=== PATIENT | female | born 1925 | race Caucasian/White ===

== ENCOUNTER → 2016-09-04 | Outpatient (REF) | payer MEDICARE, MEDICAID ==
[~2016-09-04] MED LIST: AMLO10TA2 PO; ARTI99.0 OU; BONI150T PO; CALC600T62 PO; LACT10SO29 PO; LATA5OPD OU; LOSA100T36 PO; METO5EL PO; NAPR500T PO; OXYB5TA PO; PATA0.2S OU; PRESCAP PO; RANI15ELUD PO; RISP0.5T16 PO; SUCR1SS PO; VITA400C2 PO
[2016-09-04 12:23] LABS: MEAN CORPUSCULAR HEMOGLOBIN 25.5 pg (27.0-33.0); MEAN CORPUSCULAR HGB CONC 31.9 g/dl (32.0-36.5); MEAN CORPUSCULAR VOLUME 80.1 fl (80.0-96.0); RED CELL DISTRIBUTION WIDTH 14.4 % (11.5-14.5); WHITE BLOOD COUNT 6.3 K/mm3 (4.0-10.0)
== END ==
LOC: M LABDRAW1 11:46
PROVIDERS: ATTEND Physician Assistant
DX: K57.91 Diverticulosis of intestine, part unspecified, without perforation or abscess with bleeding (principal)

== ENCOUNTER 2016-10-10 06:28 | Inpatient (IN) | payer MEDICARE, MEDICAID ==
[~2016-10-10] VITALS: Ht 154.9 cm; Wt 61.8 kg
[2016-10-10] MEDS ORDERED: ALBUTEROL SULFATE 2.5 MG/0.5 ML INH NEB SOLN As Ordered ONE (06:50)
[2016-10-10 07:07] LABS: ABG BASE EXCESS 1.7 (-2.0-2.0); ABG DEVICE NASAL CANN; ABG HCO3 25.8 MEQ/L (22.0-26.0); ABG PARTIAL PRESSURE CO2 38.6 mmHg (35.0-45.0); ABG PARTIAL PRESSURE O2 87.7 mmHg (75.0-100.0); ABG pH (ARTERIAL) 7.443 UNITS (7.350-7.450)
[2016-10-10 07:27] LABS: BASO % 0.6 % (0.0-1.0); EOS % 0.3 % (0.0-3.0); LARGE UNSTAINED CELL # 0.4 K/mm3 (0.0-0.4); LARGE UNSTAINED CELL % 5.1 % (0.0-4.0); LYMPH # 0.7 K/mm3 (1.5-4.5); LYMPH % 9.2 % (24.0-44.0); MEAN CORPUSCULAR HEMOGLOBIN 22.7 pg (27.0-33.0); MEAN CORPUSCULAR HGB CONC 32.1 g/dl (32.0-36.5); MEAN CORPUSCULAR VOLUME 70.7 fl (80.0-96.0); MONO # 0.8 K/mm3 (0.0-0.8); MONO % 10.4 % (0.0-5.0); NEUTROPHILS # 5.8 K/mm3 (1.8-7.7); NEUTROPHILS % 74.4 % (36.0-66.0); PLATELET COUNT, AUTOMATED 261 k/mm3 (150-450); RED CELL DISTRIBUTION WIDTH 14.6 % (11.5-14.5); WHITE BLOOD COUNT 7.7 K/mm3 (4.0-10.0)
[2016-10-10] MEDS ORDERED: ACETAMINOPHEN 325 MG TAB As Ordered ONE (07:46)
[2016-10-10 07:59] LABS: ANION GAP 11 MEQ/L (8-16); BLOOD UREA NITROGEN 11 MG/DL (7-18); CALCIUM LEVEL 8.6 MG/DL (8.8-10.2); CARBON DIOXIDE LEVEL 27 MEQ/L (21-32); CHLORIDE LEVEL 101 MEQ/L (98-107); CREATININE FOR GFR 0.85 MG/DL (0.55-1.02); GLOMERULAR FILTRATION RATE > 60.0 (>32); GLUCOSE, FASTING 141 MG/DL (83-110); POTASSIUM SERUM 3.9 MEQ/L (3.5-5.1); SODIUM LEVEL 139 MEQ/L (136-145)
--- NOTE | 2016-10-10 08:41 | REP ---
Chest x-ray: Two views. History: Cough. Comparison chest x-ray August 20, 2016. Findings: EKG monitoring electrodes overlie the chest. Cardiomegaly is observed unchanged. The lungs are exposed at a low level of inspiration similar to the prior study. There is some plate-like atelectasis visible in both lung bases. No definite infiltrate. Impression: Bibasilar subsegmental plate-like atelectasis. No definite infiltrate. Cardiomegaly. Relatively low level of inspiration. Signed by Alfonso Mello MD 10/10/2016 02:59 P
[2016-10-10] MEDS ORDERED: LORA10TA2 PO (08:53)
[2016-10-10] MEDS ORDERED: CALC1TAB64 PO (08:53)
[2016-10-10] MEDS ORDERED: VITA5ELUD PO (08:53)
[2016-10-10] MEDS: amLODIPine 10 MG TAB PO SCH (09:00)
[2016-10-10] MEDS: LOSARTAN 50 MG TAB PO SCH (09:00)
[2016-10-10 11:00] VITALS: BP 132/73
[2016-10-10] MEDS ORDERED: PANTOPRAZOLE 40MG INJ (PROTONIX) (C9113) As Ordered ONE (11:58)
[2016-10-10] MEDS ORDERED: ENOXAPARIN 40 MG/0.4 ML SYRINGE (J1650) As Ordered ONE (11:59)
[2016-10-10] MEDS: PANTOPRAZOLE 40MG INJ (PROTONIX) (C9113) IV SCH (12:00)
[2016-10-10] MEDS: ENOXAPARIN 30 MG/0.3 ML SYR (J1650) SC SCH (12:01)
[2016-10-10] MEDS ORDERED: ENOXAPARIN 30 MG/0.3 ML SYR (J1650) As Ordered ONE (12:01)
[2016-10-10] MEDS: SENOKOT S TAB PO SCH ×2 (12:01→20:47)
[2016-10-10] MEDS: LORATADINE 10 MG TAB PO SCH (12:02)
[2016-10-10] MEDS: risperiDONE 0.5 MG TAB PO SCH ×2 (12:02→20:47)
[2016-10-10] MEDS: oxyBUTYnin 5 MG TAB PO SCH ×2 (12:02→20:47)
[2016-10-10 14:15] VITALS: BP 129/61
--- NOTE | 2016-10-10 14:18 | EDDOCDS ---
Nurse's Notes [facility] Name: Anne Newman Age: 89 yrs Sex: Female : 1925 Arrival Date: 10/10/2016 Time: 06:28 Bed Admit Hold Private MD: Rochelle Cole PA-C Diagnosis: Fever, unspecified-Hypoxia Presentation: 10/10 06:30 Presenting complaint: EMS states: Patient from [facility]. Woke up this morning with weakness kas2 and not wanting to stand for staff. Temp was 102.6 for staff. Coughing and sneezing. SpO2 88% RA for EMS. Denies chest pain. Adult Sepsis Screening: The patient does not have new or worsening altered mentation. Patient's respiratory rate is less than 22. Systolic blood pressure is greater than 100. Patient has a qSOFA score of 0- Negative Sepsis Screen. Suicide/Homicide risk assessment- the patient denies having any suicidal and/or homicidal ideations and does not present with any other emotional, behavioral or mental health complaints. Status: Patient is not a shop service technician or dependent. Transition of care: patient was not received from another setting of care. 06:30 Acuity: ABDIAZIZ Level 3 kas2 06:30 Method Of Arrival: Ambulance [facility] Triage Assessment: 06:36 General: Appears in no apparent distress, comfortable, well nourished, well groomed, kas2 Behavior is appropriate for age, cooperative. Pain: Location: abdomen and throat Unable to use pain scale. Does not appear to understand pain scale. Neurological: Level of Consciousness is awake, alert, confused, Oriented to person. Cardiovascular: Capillary refill < 3 seconds Heart tones S1 S2 present Rhythm is sinus rhythm No ectopy. Respiratory: Airway is patent Respiratory effort is even, unlabored, Respiratory pattern is regular, symmetrical, Breath sounds are diminished bilaterally. Derm: Skin is intact, Skin is dry, Skin is pink, warm & dry. Skin temperature is warm. Musculoskeletal: No deficits noted. Injury Description: No known injury. Historical: - Allergies: Ibuprofenavoids; Lisinopriladverse reaction; - Home Meds: 1. vitamin E 400 unit Oral cap daily 2. Risperdal 0.5 mg Oral tab 2 times per day 3. oxybutynin chloride 5 mg Oral tab 1 tab 2 times per day 4. Boniva 150 mg oral tab 1 tab once moly 5. ranitidine HCl 15 mg/mL Oral syrp 2 times per day 6. Carafate 100 mg/mL Oral susp 10 mL three times a day 7. losartan 100 mg oral tab 1 tab once daily 8. latanoprost 0.005 % ophthalmic drop 1 drop nightly 9. PreserVision AREDS oral twice a day 10. amlodipine 10 mg Oral tab 1 tab once daily 11. metoclopramide HCl 5 mg/5 mL Oral soln 4 times per day 12. Artificial Tears Opht four times a day 13. lactulose 10 gram/15 mL Oral soln once daily 14. Calcarb 600 With Vitamin D Oral twice a day - PMHx: Hypertension; Diverticulitis; Mental Retardation; - The history from nurses notes was reviewed: and I agree with what is documented. - Social history: Smoking status: Patient states was never smoker of tobacco. Patient is speech impaired. - : The pt / caregiver states he / she is not on anticoagulants. Home medication list is obtained from the facility OCT. - Hospitalizations: : The patient was recently seen at [facility], and discharged 2 month(s) ago, for unrelated complaints. - Exposure Risk Screening:: None identified. - Immunization history:: All immunizations up-to-date. - Family history: Not pertinent. - Social history:: the patient is a non-smoker, the patient does not drink alcohol. Screenin:42 Screening information is obtained from residence staff. Fall risk: At risk due to age, kas2 apparent cognitive impairment. Assistance ADL's: Requires assistance with meal preparation, this assistance is provided by bathing, assistance is provided by residence staff, dressing, assistance is provided by residence staff, toileting, assistance is provided by residence staff, ambulation, assistance is provided by residence staff, housework, assistance is provided by residence staff, medication administration, assistance is provided by residence staff. Abuse/DV Screen: The patient / caregiver reports he/she is: not in a situation that causes fear, pain or injury. Nutritional screening: No deficits noted. Advance Directives: Currently, there is a health care proxy, Ana Dickens. There is a living will, and a copy is available at this time. home support is adequate. Assessment: 06:41 General: See triage note. [facility] 07:22 General: Appears JRC client. Non verbal, but uses gestures. Dry oral mucosa. without jmk resp distress. coarse breath sounds to left base. Monitor is sr/st. without resp distress. sl intact to right upper ext.. Cardiovascular: Capillary refill < 3 seconds Clubbing of nail beds is absent Heart tones S1 S2 present. Respiratory: No deficits noted. Airway is patent Respiratory effort is even, unlabored, Respiratory pattern is regular, Breath sounds are coarse in left posterior lower lobe. GI: Abdomen is non- distended obese. 08:27 General: Appears without resp distress . quietly awaiting dispo. jmk 09:30 General: Appears without complaints. JRC at staff and reports she is at baseline. k Monitor is sr. Maintaining sat above 94 % with 3 l nc. No observed resp distress SL intact. awaiting admission. 10:30 General: Patient now ED [place] and brought to room 20. All charting will continue in [address] Vital Signs: 06:38 BP 133 / 63; Pulse 92; Resp 20; Temp 100.8(TE); Pulse Ox 86% on R/A; mlc 06:38 Pulse Ox 91% on 2 lpm NC; mlc 06:43 Weight 77.79 kg; Height 5 ft. 1 in. (154.94 cm); Pain 0/10; kas2 07:58 BP 124 / 78; Pulse 88; Resp 20; Pulse Ox 95% 4 lpm ; jmk 08:49 Pulse 81; Resp 20; Temp 100.3; jmk 06:43 Body Mass Index 32.40 (77.79 kg, 154.94 cm) [facility] Vitals: 06:38 Log In Time N/A - ambulance arrival. [facility] ED Course: 06:29 Patient visited by Emeka Kline PCA. mdr 06:29 Patient moved to Waiting mdr 06:30 Rochelle Cole is Private Physician. mdr 06:30 Wilma Mcdonough,NATALIA is Primary Nurse. mdr 06:30 Patient moved to 9 mdr 06:33 Triage Initiated [facility] 06:40 Ced Harris MD is Attending Physician. pc 06:40 Patient visited by Ced Harris MD. pc 06:40 O2 via nasal cannula \T\ 2L/min. [facility] 06:43 media monitor on. Pulse ox on. NIBP on. kas2 06:48 -Influenza A&B Rapid Antigen - Nose Sent. [facility] 06:57 Patient visited by Wilma Mcdonough RN. kas2 06:57 Inserted saline lock: 20 gauge in right forearm The patient tolerated the procedure kas2 well. No procedures done that require assistance. 06:59 -Arterial Blood Gas Sent. kt1 07:02 Attending Physician role handed off by Ced Harris MD br1 07:02 Carlos A Grajeda MD is Attending Physician. br1 07:03 Patient visited by Wilma Mcdonough RN. kas2 07:08 Primary Nurse role handed off by Wilma Mcdonough RN mcp 07:22 MED Profile Sent. jmk 07:22 CBC with Diff Sent. jmk 07:42 TROPONIN Sent. jmk 07:57 EKG done. (by ED staff). Reviewed by Carlos A Grajeda MD. rn1 07:58 Patient visited by Drew Wheeler. rn1 07:59 Patient visited by Clarke Fox RN. jmk 08:14 Patient visited by Carlos A Grajeda MD. br1 08:37 [facility] Payment Agreement was scanned into [employer] and attached to record. lg 08:39 Jose Eduardo Amezcua is Hospitalizing Provider. br1 09:03 Chest, 2 View (pa\E\lat) Returned. EDMS 10:07 Patient visited by Clarke Fox RN. jmk 11:03 Patient moved to 20 [facility] 11:14 Patient moved to Admit Hold [facility] 13:53 The patient / caregiver is instructed regarding the plan of care and ED course. aa3 Administered Medications: 06:52 Drug: Albuterol 5 mg [albuterol sulfate 2.5 mg/0.5 mL solution for nebulization (1 mL)] kt1 Route: Nebulizer; 07:58 Drug: Acetaminophen 650 mg [acetaminophen 325 mg tablet (2 tabs)] Route: PO; john RT: 07:00 ABG's drawn from right radial artery pressure held for 5 minutes no bleeding noted kt1 pressure bandage applied specimen sent pt. tolerated well. Initial Med Neb Given as ordered Unable to give instruction due to patient's physical barriers, family/caregiver not present. Order Results: Lab Order: -Influenza A&B Rapid Antigen - Nose; SPEC'M 10/10/16 06:46 Test: INFLUENZA A RAPID SCR by ICA; Value: INFLUENZA A RESULTS NEGATIVE; Status: F Test: INFLUENZA A RAPID SCR by ICA; Value: Comments:; Status: F Test: INFLUENZA B RAPID SCR by ICA; Value: INFLUENZA B RESULTS NEGATIVE; Status: F Test Note: ; The Influenza test is a direct rapid immunoassay for the qualitative detection of Influenza viral antigen. Cell culture (Viral Culture) testing should be considered to confirm NEGATIVE results and to assist in detecting other viruses that can provide similar clinical symptoms. Please contact the lab within 24 hours ([phone]) if confirmatory testing is desired. Lab Order: -Arterial Blood Gas; SPEC'10/10/16 06:46 Test: ABG pH (ARTERIAL); Value: 7.443; Range: 7.350-7.450; Units: UNITS; Status: F Test: ABG PARTIAL PRESSURE CO2; Value: 38.6; Range: 35.0-45.0; Units: mmHg; Status: F Test: ABG PARTIAL PRESSURE O2; Value: 87.7; Range: 75.0-100.0; Units: mmHg; Status: F Test: ABG TOTAL CO2; Value: 27.0; Range: 23.0-31.0; Units: MEQ/L; Status: F Test: ABG HCO3; Value: 25.8; Range: 22.0-26.0; Units: MEQ/L; Status: F Test: ABG BASE EXCESS; Value: 1.7; Range: -2.0-2.0; Status: F Test: ABG STANDARD HCO3; Value: 26.0; Range: 22.0-26.0; Units: MEQ/L; Status: F Test: ABG O2 SATURATION; Value: 96.8; Range: 95.0-99.0; Units: %; Status: F Test: ABG DEVICE; Value: NASAL KHAI; Status: F Lab Order: CBC with Diff; SPEC10/10/16 07:18 Test: WHITE BLOOD COUNT; Value: 7.7; Range: 4.0-10.0; Units: K/mm3; Status: F Test: RED BLOOD COUNT; Value: 4.83; Range: 4.00-5.40; Units: M/mm3; Status: F Test: HEMOGLOBIN; Value: 11.0; Range: 12.0-16.0; Abnormal: Below low normal; Units: g/dl; Status: F Test: HEMATOCRIT; Value: 34.1; Range: 36.0-47.0; Abnormal: Below low normal; Units: %; Status: F Test: MEAN CORPUSCULAR VOLUME; Value: 70.7; Range: 80.0-96.0; Abnormal: Below low normal; Units: fl; Status: F Test: MEAN CORPUSCULAR HEMOGLOBIN; Value: 22.7; Range: 27.0-33.0; Abnormal: Below low normal; Units: pg; Status: F Test: MEAN CORPUSCULAR HGB CONC; Value: 32.1; Range: 32.0-36.5; Units: g/dl; Status: F Test: RED CELL DISTRIBUTION WIDTH; Value: 14.6; Range: 11.5-14.5; Abnormal: Above high normal; Units: %; Status: F Test: PLATELET COUNT, AUTOMATED; Value: 261; Range: 150-450; Units: k/mm3; Status: F Test: NEUTROPHILS %; Value: 74.4; Range: 36.0-66.0; Abnormal: Above high normal; Units: %; Status: F Test: LYMPH %; Value: 9.2; Range: 24.0-44.0; Abnormal: Below low normal; Units: %; Status: F Test: MONO %; Value: 10.4; Range: 0.0-5.0; Abnormal: Above high normal; Units: %; Status: F Test: EOS %; Value: 0.3; Range: 0.0-3.0; Units: %; Status: F Test: BASO %; Value: 0.6; Range: 0.0-1.0; Units: %; Status: F Test: LARGE UNSTAINED CELL %; Value: 5.1; Range: 0.0-4.0; Abnormal: Above high normal; Units: %; Status: F Test: NEUTROPHILS #; Value: 5.8; Range: 1.8-7.7; Units: K/mm3; Status: F Test: LYMPH #; Value: 0.7; Range: 1.5-4.5; Abnormal: Below low normal; Units: K/mm3; Status: F Test: MONO #; Value: 0.8; Range: 0.0-0.8; Units: K/mm3; Status: F Test: EOS #; Value: 0.0; Range: 0.0-0.50; Units: K/mm3; Status: F Test: BASO #; Value: 0.0; Range: 0.0-0.2; Units: K/mm3; Status: F Test: LARGE UNSTAINED CELL #; Value: 0.4; Range: 0.0-0.4; Units: K/mm3; Status: F Lab Order: MED Profile; SPEC10/10/16 07:18 Test: GLUCOSE, FASTING; Value: 141; Range: 83-110; Abnormal: Above high normal; Units: MG/DL; Status: F Test: BLOOD UREA NITROGEN; Value: 11; Range: 7-18; Units: MG/DL; Status: F Test: CREATININE FOR GFR; Value: 0.85; Range: 0.55-1.02; Units: MG/DL; Status: F Test: GLOMERULAR FILTRATION RATE; Value: > 60.0; Range: >32; Status: F Test: SODIUM LEVEL; Value: 139; Range: 136-145; Units: MEQ/L; Status: F Test: POTASSIUM SERUM; Value: 3.9; Range: 3.5-5.1; Units: MEQ/L; Status: F Test: CHLORIDE LEVEL; Value: 101; Range: 98-107; Units: MEQ/L; Status: F Test: CARBON DIOXIDE LEVEL; Value: 27; Range: 21-32; Units: MEQ/L; Status: F Test: ANION GAP; Value: 11; Range: 8-16; Units: MEQ/L; Status: F Test: CALCIUM LEVEL; Value: 8.6; Range: 8.8-10.2; Abnormal: Below low normal; Units: MG/DL; Status: F Test Note: ; Units are mL/min/1.73 m2 Chronic Kidney Disease Staging per NKF: Stage I & II GFR >=60 Normal to Mildly Decreased Stage III GFR 30-59 Moderately Decreased Stage IV GFR 15-29 Severely Decreased Stage V GFR <15 Very Little GFR Left ESRD GFR <15 on DENTAL INSTRUMENT MAKER Lab Order: BNP; [facility] 10/10/16 07:15 Test: BRAIN NATRIURETIC PEPTIDE; Value: 87.7; Range: <100; Units: PG/ML; Status: F Lab Order: TROPONIN; [facility] 10/10/16 07:18 Test: TROPONIN I; Value: < 0.02; Range: < 0.10; Units: NG/ML; Status: F Test Note: ; Troponin I Reference Interval for [employer] [place] LOCI: 99th Percentile= 0.00-0.045 ng/ml Risk Stratification: <= 0.10 ng/ml Decreased Risk for Adverse Clinical Events. 0.10-1.50 ng/ml Increased Risk for Adverse Clinical Events. Evaluation of additional criterion and/or repeat testing in 2-6 hours is suggested to rule out myocardial damage. >= 1.50 ng/ml Indicative of Myocardial Injury. Lab Order: RESPIRATORY PANEL; SPEC'M 10/10/16 06:46 Test: RESPIRATORY PANEL; Value: RP PANEL RESULT NEGATIVE by PCR; Status: F Test: RESPIRATORY PANEL; Value: Comments:; Status: F Test Note: ; This respiratory PCR panel detects Influenza A H1, H3 and 2009 H1 viruses, Influenza B virus, Respiratory syncytial virus, Human metapneumovirus, Parainfluenza virus 1, 2, 3 and 4, Adenovirus, Rhinovirus/Enterovirus, Coronavirus HKU1, NL63, OC43 and 229E, Bordetella pertussis, Mycoplasma pneumoniae and Chlamydia pneumoniae. Radiology Order: Chest, 2 View (pa\E\lat) Test: Chest, 2 View (pa\E\lat) REASON FOR EXAMINATION: Cough; Chest x-ray: Two views.; ; History: Cough.; ; Comparison chest x-ray August 20, 2016.; ; Findings: EKG monitoring electrodes overlie the chest. Cardiomegaly is observed; unchanged. The lungs are exposed at a low level of inspiration similar to the; prior study. There is some plate-like atelectasis visible in both lung bases.; No definite infiltrate.; ; Impression:; ; Bibasilar subsegmental plate-like atelectasis. No definite infiltrate.; Cardiomegaly. Relatively low level of inspiration.; ; Unreviewed; Outcome: 08:39 Decision to Hospitalize by Provider. br1 13:52 Discharge Assessment: Patient awake and alert. Oriented to person, Patient Patient JRC aa3 resdient patient administered narcotics - no. The following High Risk Discharge criteria are identified: None. Admitted to Med/Surg accompanied by tech, with oxygen, with chart. Condition: good. CT Study completed. Admission hand-off: Report called to NATALIA Norton on [facility]. Property :Personal belongings accompany Pt. Belongings with [facility] staff member. 14:17 Patient left the ED. aa3 Signatures: Dispatcher [employer] EDMS Ced Harris MD MD pc Jobson, Karen, RN RN Clarke Corey,RN RN Gloria Barboza, RN RN Kari Rankin, Lc Reg Melissa Guerrero kt1 Carlos A Grajeda MD MD br1 Sheyla Kumar,RN RN aa3 Lana Tidwell,RN RN Drew Zamora rn1 Emeka Kline PCA PCA mdr Smith, Kim,RN RN kas2 TONJA
--- NOTE | 2016-10-10 14:18 | EDDOCDS ---
Physician Documentation [facility] [place] Name: Anne Newman Age: 89 yrs Sex: Female : 1925 Arrival Date: 10/10/2016 Time: 06:28 Bed Admit Hold Private MD: Rochelle Cole PA-C Disposition: 10/10/16 08:39 Hospitalization ordered by Jose Eduardo Amezcua for Inpatient Admission. Preliminary diagnosis is Fever, unspecified - Hypoxia. - Bed requested for 4 [place]. - Status is Inpatient Admission. aa3 - Condition is Stable. - Problem is new. - Symptoms are unchanged. HPI: 10/10 06:41 This 89 yrs old Female presents to ER via Ambulance with complaints of Flu pc Symptoms. 06:41 The history is obtained from [facility] staff. She awoke this morning with a runny nose, cough pc and was too weak to stand with assistance. She had a tympanic temp of 102.6F per staff. EMS were called. They found her hypoxic with a PO of 86% on room air. No other history is available. The patient has not experienced similar symptoms in the past. The patient has been recently seen by their primary care provider, for a routine, regularly scheduled appointment. Historical: - Allergies: Ibuprofenavoids; Lisinopriladverse reaction; - Home Meds: 1. vitamin E 400 unit Oral cap daily 2. Risperdal 0.5 mg Oral tab 2 times per day 3. oxybutynin chloride 5 mg Oral tab 1 tab 2 times per day 4. Boniva 150 mg oral tab 1 tab once moly 5. ranitidine HCl 15 mg/mL Oral syrp 2 times per day 6. Carafate 100 mg/mL Oral susp 10 mL three times a day 7. losartan 100 mg oral tab 1 tab once daily 8. latanoprost 0.005 % ophthalmic drop 1 drop nightly 9. PreserVision AREDS oral twice a day 10. amlodipine 10 mg Oral tab 1 tab once daily 11. metoclopramide HCl 5 mg/5 mL Oral soln 4 times per day 12. Artificial Tears Opht four times a day 13. lactulose 10 gram/15 mL Oral soln once daily 14. Calcarb 600 With Vitamin D Oral twice a day - PMHx: Hypertension; Diverticulitis; Mental Retardation; - The history from nurses notes was reviewed: and I agree with what is documented. - Social history: Smoking status: Patient states was never smoker of tobacco. Patient is speech impaired. - : The pt / caregiver states he / she is not on anticoagulants. Home medication list is obtained from the facility OCT. - Hospitalizations: : The patient was recently seen at [facility] [place], and discharged 2 month(s) ago, for unrelated complaints. - Exposure Risk Screening:: None identified. - Immunization history:: All immunizations up-to-date. - Family history: Not pertinent. - Social history:: the patient is a non-smoker, the patient does not drink alcohol. ROS: 06:41 Unable to reliably obtain pc Exam: 06:41 General Appearance: no acute distress, alert, will not cooperate for oral temp. pc 06:41 EENT: normal eye inspection, pharynx normal, mucous membranes moist purulent nasal discharge. 06:41 Neck: The exam reveals no acute abnormalities. ROM is normal and painless. No nuchal rigidity is noted.. 06:41 Respiratory: no respiratory distress, Breath sounds: wheezing, scattered. 06:41 CVS: regular pulse rate, regular rhythm, normal S1 and S2, no murmurs, strong peripheral pulses. 06:41 Abdomen: soft, non-tender, no organomegaly, normal bowel sounds. 06:41 Back: normal inspection. 06:41 Skin: skin color is normal, warm, dry. 06:41 Extremities: The extremities have a grossly normal appearance. 06:41 Neuro: cranial nerves normal as tested, no motor deficits, no sensory deficits. Vital Signs: 06:38 BP 133 / 63; Pulse 92; Resp 20; Temp 100.8(TE); Pulse Ox 86% on R/A; mlc 06:38 Pulse Ox 91% on 2 lpm NC; mlc 06:43 Weight 77.79 kg / 171.5 lbs; Height 5 ft. 1 in. (154.94 cm); Pain 0/10; kas2 07:58 BP 124 / 78; Pulse 88; Resp 20; Pulse Ox 95% 4 lpm ; jmk 08:49 Pulse 81; Resp 20; Temp 100.3; jmk 06:43 Body Mass Index 32.40 (77.79 kg, 154.94 cm) kas2 MDM: 06:41 Obtain sample by nasopharyngeal swab ordered. pc 06:41 Call Respiratory ordered. pc 06:41 IV Saline Lock ordered. pc 06:41 Journeyman Pressman/Pulse Ox/q 60 min VS ordered. pc 06:41 Differential Diagnosis: URI r/o influenza/pneumonia; hypoxia. Plan: labs, imaging, meds.pc 06:42 Call Respiratory complete. sls1 06:42 -Influenza A&B Rapid Antigen - Nose Ordered. EDMS 06:42 -Arterial Blood Gas Ordered. EDMS 06:42 CBC with Diff Ordered. EDMS 06:42 MED Profile Ordered. EDMS 06:43 Chest, 2 View (pa\E\lat) Ordered. EDMS 06:46 Albuterol 5 mg Nebulizer once ordered. pc 06:47 Oxygen 2L via NC, titrate to maintain PO >95% ordered. pc 07:24 -Influenza A&B Rapid Antigen - Nose Reviewed. br1 07:24 -Arterial Blood Gas Reviewed. br1 07:31 CBC with Diff Reviewed. br1 07:33 ECG WITH READING ER PHYS+CARDIAG ordered. EDMS 07:34 Acetaminophen Tablet 650 mg PO once ordered. br1 07:34 BNP Ordered. EDMS 07:37 TROPONIN Ordered. EDMS 07:52 BED REQUEST+ADM ordered. EDMS 08:04 Financial registration complete. lg 08:13 MED Profile Reviewed. br1 08:13 BNP Reviewed. br1 08:13 TROPONIN Reviewed. br1 08:37 [facility] Payment Agreement was scanned into [email or web address] and attached to record. lg 10:17 RESPIRATORY PANEL Ordered. EDMS 10:22 Admission / Observation Status ordered. EDMS 10:26 BLOOD CULTURES Ordered. EDMS 10:26 BLOOD CULTURES Ordered. EDMS 12:19 PUREED DIET ordered. EDMS 13:58 URINE CULTURE Ordered. EDMS Administered Medications: 06:52 Drug: Albuterol 5 mg [albuterol sulfate 2.5 mg/0.5 mL solution for nebulization (1 mL)] kt1 Route: Nebulizer; 07:58 Drug: Acetaminophen 650 mg [acetaminophen 325 mg tablet (2 tabs)] Route: PO; navak Signatures: Dispatcher [employer] EDMS Ced Harris MD MD pc Daly, Linda, Concreter Unit lbd Kari Pop, Reg Reg lg Carlos A Grajeda MD MD br1 Lizzeth Andersen RN RN sls1 Sheyla Kumar RN RN aa3 Wilma Mcdonough RN RN kas2 Clarke Fox RN, Kristin kt1 The chart was reviewed and I authenticate all verbal orders and agree with the evaluation and treatment provided.Corrections: (The following items were deleted from the chart) 07:37 07:34 TROPONIN+LAB ordered. EDMS EDMS 13:59 10:26 URINALYSIS ordered. EDMS EDMS Attachments: 08:37 [facility] Payment Agreement lg MTDD
[2016-10-10] MEDS: POLYVINYL ALCOHOL OPHTH SOLN 15 ML(LIQUITEARS) OU SCH ×3 (15:13→21:47)
[2016-10-10] MEDS: SUCRALFATE SUSP 1GM/10ML UD PO SCH ×2 (16:32→20:47)
[2016-10-10] MEDS: IPRATROPIUM 0.5MG/ALBUTEROL 2.5MG INH SOL UD 3ML (DUONEB)(J7620) NEB SCH (17:54)
[2016-10-10] MEDS: LATANOPROST 0.005% OPHTH SOLN 2.5 ML OU SCH (21:47)
--- NOTE | 2016-10-10 21:49 | ECGEPIP ---
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
[2016-10-10 22:00] VITALS: BP 139/70
[2016-10-10] MEDS: ONDANSETRON 4MG/2ML VIAL (J2405) IV PRN (23:19)
[2016-10-11] VITALS: BP 130/71
[2016-10-11 06:00] VITALS: BP 135/63
[2016-10-11 06:21] LABS: BASO % 0.7 % (0.0-1.0); EOS % 0.6 % (0.0-3.0); LARGE UNSTAINED CELL # 0.2 K/mm3 (0.0-0.4); LARGE UNSTAINED CELL % 3.8 % (0.0-4.0); LYMPH # 1.4 K/mm3 (1.5-4.5); MEAN CORPUSCULAR HEMOGLOBIN 22.1 pg (27.0-33.0); MEAN CORPUSCULAR HGB CONC 30.9 g/dl (32.0-36.5); MEAN CORPUSCULAR VOLUME 71.5 fl (80.0-96.0); MONO # 0.7 K/mm3 (0.0-0.8); MONO % 10.9 % (0.0-5.0); NEUTROPHILS # 4.1 K/mm3 (1.8-7.7); PLATELET COUNT, AUTOMATED 241 k/mm3 (150-450); WHITE BLOOD COUNT 6.2 K/mm3 (4.0-10.0)
[2016-10-11 06:33] LABS: ANION GAP 7 MEQ/L (8-16); BLOOD UREA NITROGEN 18 MG/DL (7-18); CARBON DIOXIDE LEVEL 27 MEQ/L (21-32); CHLORIDE LEVEL 103 MEQ/L (98-107); CREATININE FOR GFR 0.75 MG/DL (0.55-1.02); GLOMERULAR FILTRATION RATE > 60.0 (>32); GLUCOSE, FASTING 109 MG/DL (83-110); SODIUM LEVEL 137 MEQ/L (136-145)
[2016-10-11] MEDS ORDERED: ALBUTEROL SULFATE 2.5 MG/0.5 ML INH NEB SOLN NEB PRN (07:15)
[2016-10-11] MEDS: IPRATROPIUM 0.5MG/ALBUTEROL 2.5MG INH SOL UD 3ML (DUONEB)(J7620) NEB SCH ×4 (07:30→23:45)
[2016-10-11] MEDS: BUDESONIDE 0.5 MG/2 ML INHALATION SUSPENSION INH SCH ×2 (08:00→19:46)
[2016-10-11] MEDS: SUCRALFATE SUSP 1GM/10ML UD PO SCH ×3 (08:22→20:48)
[2016-10-11] MEDS: oxyBUTYnin 5 MG TAB PO SCH ×2 (08:22→20:49)
[2016-10-11] MEDS: LOSARTAN 50 MG TAB PO SCH (08:22)
[2016-10-11] MEDS: LORATADINE 10 MG TAB PO SCH (08:23)
[2016-10-11] MEDS: SENOKOT S TAB PO SCH ×2 (08:23→20:49)
[2016-10-11] MEDS: BISACODYL 10 MG SUPP PR PRN (08:23)
[2016-10-11] MEDS: ENOXAPARIN 30 MG/0.3 ML SYR (J1650) SC SCH (08:23)
[2016-10-11] MEDS: risperiDONE 0.5 MG TAB PO SCH ×2 (08:23→20:49)
[2016-10-11] MEDS: PANTOPRAZOLE 40MG INJ (PROTONIX) (C9113) IV SCH (08:23)
[2016-10-11] MEDS: amLODIPine 10 MG TAB PO SCH ×2 (08:23→08:24)
[2016-10-11] MEDS: POLYVINYL ALCOHOL OPHTH SOLN 15 ML(LIQUITEARS) OU SCH ×4 (08:24→20:49)
[2016-10-11] MEDS ORDERED: FUROSEMIDE 40 MG/4 ML VIAL (J1940) IV ONE (10:30)
[2016-10-11] MEDS: AZITHROMYCIN 250 MG TAB PO SCH (11:00)
--- NOTE | 2016-10-11 13:31 | HPEPDOC ---
General Date of Admission Oct 10, 2016 at 10:16 Other Providers Rochelle sneed Attending Physician: JESSIE MORRIS MD Chief Complaint The patient is a 89-year-old female admitted with a reason for visit of Hypoxia Viral Syndrome. Source: RN notes reviewed, [facility] Caregiver/Aid Associated Symptoms: Cough, Fever, Shortness of breath, Weakness History of Present Illness This .is a 89 year old female with past medical history of developmental and cognitive disability , hypertension, diverticulosis, glaucoma, chronic constipation, gastritis ,a resident of [facility] was noted to have low grade fever yesterday to a t max of 100.2 managed with tylenol along with cough and congestion . This morning on waking up pateint was found to be febrile to 102.6 and also was noted to be hypoxic to 85% in room air. She was extremely weak and was refusing to get out of bed and stand for the staff. she also had persistent cough , sneezing and congestion with upper respiratory tract symptoms . So the patient was sent to the ED for evaluation. In ED on arrival she was noted to be febrile to 100.8 with O2 sats of 86% in room air. Patient had a chest xray which showed bibasilar atelectesis but no definite infiltrates. Pateint was admitted for hypoxia and acute viral syndrome. At baseline pateint is ambulatory and can eat by herself, can understand and follow commands and can speak a few words. Home Medications Scheduled (Pataday) 0.2 % Juliette 1 DROP OU DAILY (Reported) (Preservision Areds) 1 Cap Cap 1 CAP PO BID (Reported) (Calcium/Vitamin D3 600-400 mg-Unit) 1 Tab Tab 1 TAB PO BID (Reported) Amlodipine Besylate (Amlodipine Besylate) 10 Mg Tab 10 MG PO DAILY (Reported) Artificial Tears (Artificial Tears) 1.4 % Juliette 2 DROP OU QID (Reported) Ibandronate Sodium (Boniva) 150 Mg Tab 150 MG PO QMONTH (Reported) LAST SATURDAY OF EVERY MONTH Lactulose (Lactulose) 10 Gm/15 Ml Juliette 15 ML PO DAILY (Reported) Latanoprost (Latanoprost) 50 Drop/2.5 Ml Soln 1 DROP OU QHS (Reported) Loratadine (Loratadine) 10 Mg Tab 10 MG PO DAILY (Reported) Losartan Potassium (Losartan Potassium) 100 Mg Tab 100 MG PO DAILY (Reported) Metoclopramide HCl (Metoclopramide HCl) 5 Mg/5 Ml Liq 5 MG PO ACHS (Reported) Multivitamins Liquid *SMC STOCKED* (Multi-Delyn Liquid *SMC STOCKED*) 5 Ml Liqd 10 ML PO DAILY (Reported) Oxybutynin Chloride (Oxybutynin Chloride) 5 Mg Tab 5 MG PO BID (Reported) Ranitidine HCl (Ranitidine HCl) 150 Mg/10 Ml Syrp 150 MG PO BID (Reported) Risperidone (Risperdal) 0.5 Mg Tab 0.5 MG PO BID (Reported) Sucralfate (Carafate) 1 Gm/10 Ml Rosa 1 GM PO TID (Reported) Vitamin E (Vitamin E) 400 Unit Cap 400 UNIT PO DAILY (Reported) Allergies Coded Allergies: Ibuprofen (Unverified Allergy, Unknown, AVOIDS (PT ON NAPROXEN), 08/20/16) Lisinopril (Unverified Allergy, Unknown, UNKNOWN, 08/20/16) Past Medical History Medical History hypertension, mental retardation , glaucoma, diverticulosis, gastritis. Family History Significant Family History: No pertinent family hx Social History * Smoker: non-smoker Alcohol: denies Drugs: denies Psychosocial History: Anxiety Physical Examination General Exam: Positive: Alert, Cooperative, No Acute Distress Eye Exam: Positive: Conjunctiva & lids normal, EOMI, PERRLA, Negative: Sclera icteric ENT Exam: Positive: Atraumatic, Mucous membr. moist/pink, Pharynx Normal Neck Exam: Positive: Supple, Negative: JVD, thyromegaly Chest Exam: Positive: Rales, Rhonchi, Wheezing Heart Exam: Positive: Normal S1, Normal S2, Rate Normal, Regular Rhythm, Negative: Murmurs, Rubs Telemetry: Positive: Sinus Abdomen Exam: Positive: BS Hypoactive, Soft Extremity Exam: Positive: Normal pulses, Negative: Clubbing, Cyanosis, Edema Vital Signs Vital Signs Label Value Date Time Patient Temperature 98.4 degrees F 10/10/16 1100 Temperature Source Tympanic 10/10/16 1100 Pulse 81 10/10/16 1100 Respiratory Rate 18 bpm 10/10/161099 Blood Pressure Assessment 132/73 (92) 10/10/161099 Bedside Pulse Oximetry 94 % 10/10/16 1100 Item Value Date Time Oxygen Flow Rate 3.0 L/min 10/10/16 1100 Oxygen Delivery Method Nasal Cannula 10/10/16 1100 Oxygen Delivery Method Nasal Cannula 10/10/16 1100 Oxygen Flow Rate 3.0 L/min 10/10/16 1100 Laboratory Data Labs 24H Laboratory Tests 2 10/10/16 06:46: Arterial Blood pH 7.443, Arterial Blood Partial Pressure CO2 38.6, Arterial Blood Partial Pressure O2 87.7, Arterial Blood Total CO2 27.0, Arterial Blood HCO3 25.8, Arterial Blood Base Excess 1.7, Arterial Blood Oxygen Saturation 96.8 , Blood Gas Bicarbonate Standard 26.0, Oxygen Delivery Device NASAL KHAI 10/10/16 07:15: B-Type Natriuretic Peptide 87.7 10/10/16 07:18: Anion Gap 11, White Blood Count 7.7, Red Blood Count 4.83, Hemoglobin 11.0L, Hematocrit 34.1L, Mean Corpuscular Volume 70.7L, Mean Corpuscular Hemoglobin 22.7L, Mean Corpuscular Hemoglobin Concent 32.1, Red Cell Distribution Width 14.6H, Platelet Count 261, Neutrophils (%) (Auto) 74.4H, Lymphocytes (%) (Auto) 9.2L, Monocytes (%) (Auto) 10.4H, Eosinophils (%) (Auto) 0.3, Basophils (%) ( Auto) 0.6, Neutrophils # (Auto) 5.8, Lymphocytes # (Auto) 0.7L, Monocytes # ( Auto) 0.8, Eosinophils # (Auto) 0.0, Basophils # (Auto) 0.0, Blood Urea Nitrogen 11, Creatinine 0.85, Sodium Level 139, Potassium Level 3.9, Chloride Level 101, Carbon Dioxide Level 27, Calcium Level 8.6L, Glomerular Filtration Rate > 60.0, Large Unclassified Cells # 0.4, Large Unclassified Cells % 5.1H, Troponin I < 0.02 CBC/BMP Laboratory Tests 10/10/16 07:18 Calcium Level 8.6 L, Red Blood Count 4.83, Mean Corpuscular Volume 70.7 L, Mean Corpuscular Hemoglobin 22.7 L, Mean Corpuscular Hemoglobin Concent 32.1, Red Cell Distribution Width 14.6 H, Neutrophils (%) (Auto) 74.4 H, Lymphocytes (%) ( Auto) 9.2 L, Monocytes (%) (Auto) 10.4 H, Eosinophils (%) (Auto) 0.3, Basophils (%) (Auto) 0.6, Neutrophils # (Auto) 5.8, Lymphocytes # (Auto) 0.7 L, Monocytes # (Auto) 0.8, Eosinophils # (Auto) 0.0, Basophils # (Auto) 0.0 Microbiology Microbiology 10/10/16 Blood Culture, Received Pending 10/10/16 Blood Culture, Received Pending 10/10/16 Respiratory Virus Panel (PCR) (ABHIJIT) - Final, Complete 10/10/16 Influenza Virus Type A Antigen - Final, Complete 10/10/16 Influenza Virus Type B Antigen - Final, Complete Problems (1) Acute bronchitis Status: Acute Problem Text: will give azithromycin , continue with nebulizations. cxr negative for any infiltrates. will get CT chest (2) Hypoxia Status: Resolved Problem Text: will continue with nebulizations, continue oxygen supplementation. (3) Viral syndrome Status: Resolved Problem Text: respiratory panel is negative will continue with tylenol for fever or pain. (4) Developmental disability Status: Chronic Problem Text: [facility] at baseline independently ambulatory with walker, can feed by herself, unable to communicate but can understand and follow commands. (5) Glaucoma Status: Chronic (6) Hypertension Status: Chronic Plan / VTE VTE Prophylaxis Ordered?: Yes JESSIE MORRIS MD Oct 10, 2016 23:36
--- NOTE | 2016-10-11 13:35 | IPNPDOC ---
Subjective General Date Seen The patient was seen on 10/11/16. Subjective Chief Complaint/HPI The patient is a 89-year-old female admitted with a reason for visit of Hypoxia Viral Syndrome. Events since last encounter seems a little better , however still requiring oxygen, still seems SOB with minimal exertion. had low grade fever this am. has cough. no vomiting . Has constipation and indicates abdominal discomfort. Objective Physical Examination General Exam: Positive: Alert, Cooperative, No Acute Distress Eye Exam: Positive: Conjunctiva & lids normal, EOMI, PERRLA, Negative: Sclera icteric ENT Exam: Positive: Atraumatic, Mucous membr. moist/pink, Pharynx Normal Neck Exam: Positive: Supple, Negative: JVD, thyromegaly Chest Exam: Positive: Rales, Rhonchi Heart Exam: Positive: Normal S1, Normal S2, Rate Normal, Regular Rhythm, Negative: Murmurs, Rubs Telemetry: Positive: Sinus Abdomen Exam: Positive: BS Hypoactive, Soft, Tenderness Extremity Exam: Positive: Normal pulses, Negative: Clubbing, Cyanosis, Edema Assessment /Plan Problems Problems: (1) Abdominal pain Status: Acute Problem Text: th constipation may be due to this however will get a ct abdomen and pelvis. (2) Acute bronchitis Status: Acute Problem Text: will give azithromycin , continue with nebulizations. cxr negative for any infiltrates. will get CT chest (3) Hypoxia Status: Acute Problem Text: will continue with nebulizations, continue oxygen supplementation. (4) Viral syndrome Status: Acute Problem Text: respiratory panel is negative will continue with tylenol for fever or pain. (5) Developmental disability Status: Chronic Problem Text: [facility] at baseline independently ambulatory with walker, can feed by herself, unable to communicate but can understand and follow commands. (6) Glaucoma Status: Chronic (7) Hypertension Status: Chronic Plan/VTE VTE Prophylaxis Ordered?: Yes VS, I&O, 24H, Fishbone Vital Signs/I&O Vital Signs Date Time Temp Pulse Resp B/P Pulse Ox O2 Delivery O2 Flow Rate FiO2 10/11/16 09:00 Nasal Cannula 2.0 10/11/16 06:00 100.7 69 20 135/63 93 I&O- Last 24 Hours up to 6 AM 10/11/16 06:00 Intake Total 960 ml Output Total 0 ml Balance 960 ml Laboratory Data 24H LABS Laboratory Tests 2 10/11/16 05:21: Anion Gap 7L, White Blood Count 6.2, Red Blood Count 4.23, Hemoglobin 9.3L, Hematocrit 30.2L, Mean Corpuscular Volume 71.5L, Mean Corpuscular Hemoglobin 22.1L, Mean Corpuscular Hemoglobin Concent 30.9L, Red Cell Distribution Width 15.0H, Platelet Count 241, Neutrophils (%) (Auto) 65.0, Lymphocytes (%) (Auto) 19.0L, Monocytes (%) (Auto) 10.9H, Eosinophils (%) (Auto) 0.6, Basophils (%) ( Auto) 0.7, Neutrophils # (Auto) 4.1, Lymphocytes # (Auto) 1.4L, Monocytes # ( Auto) 0.7, Eosinophils # (Auto) 0.0, Basophils # (Auto) 0.0, Blood Urea Nitrogen 18#, Creatinine 0.75, Sodium Level 137, Potassium Level 4.0, Chloride Level 103, Carbon Dioxide Level 27, Calcium Level 8.0L, Glomerular Filtration Rate > 60.0, Large Unclassified Cells # 0.2, Large Unclassified Cells % 3.8 CBC/BMP Laboratory Tests 10/11/16 05:21 Calcium Level 8.0 L, Red Blood Count 4.23, Mean Corpuscular Volume 71.5 L, Mean Corpuscular Hemoglobin 22.1 L, Mean Corpuscular Hemoglobin Concent 30.9 L, Red Cell Distribution Width 15.0 H, Neutrophils (%) (Auto) 65.0, Lymphocytes (%) ( Auto) 19.0 L, Monocytes (%) (Auto) 10.9 H, Eosinophils (%) (Auto) 0.6, Basophils (%) (Auto) 0.7, Neutrophils # (Auto) 4.1, Lymphocytes # (Auto) 1.4 L, Monocytes # (Auto) 0.7, Eosinophils # (Auto) 0.0, Basophils # (Auto) 0.0 Microbiology Microbiology 10/10/16 Blood Culture, Received Pending 10/10/16 Blood Culture, Received Pending 10/10/16 Respiratory Virus Panel (PCR) (ABHIJIT) - Final, Complete 10/10/16 Influenza Virus Type A Antigen - Final, Complete 10/10/16 Influenza Virus Type B Antigen - Final, Complete JESSIE MORRIS MD Oct 11, 2016 13:35
[2016-10-11 14:00] VITALS: BP 117/56
[2016-10-11] MEDS ORDERED: GASTROGRAFIN SOLUTION 30ML PO ONE (14:05)
[2016-10-11] MEDS ORDERED: GASTROGRAFIN SOLUTION 30ML (Q9963) PO ONE (14:35)
--- NOTE | 2016-10-11 20:00 | REPUSA ---
CLINICAL HISTORY: Fever and cough. TECHNIQUE: Multiple axial CT images were obtained through chest without IV contrast material. COMMENTS: There is no evidence of pleural or parenchymal-based mass. There are no pleural effusions. There is n o evidence of hilar or mediastinal lymphadenopathy. The heart is enlarged. Mild pulmonary venous con gestive changes are seen. The visualized portions of the liver are of uniform attenuation without mass or defect. There is no i ntra or extrahepatic biliary ductal dilatation. The spleen is unremarkable. The visualized pancreas i s of normal contour and attenuation characteristics. There is no evidence of adrenal mass. The visual ized portions of the kidneys present no abnormalities. The bony structures are free of lytic or blastic lesions. Multilevel degenerative changes are seen in volving the thoracic spine. Scattered calcifications are seen involving the aorta and visualized fanny r branches compatible with atherosclerosis. IMPRESSION: . Cardiomegaly and mild CHF. Otherwise unremarkable study. Thank you for your kind referral of this patient.
--- NOTE | 2016-10-11 20:00 | REPUSA ---
CLINICAL HISTORY: Abdominal pain. TECHNIQUE: Multiple axial, sagittal and coronal CT images were obtained through the abdomen and pelvi s after administration of oral but not IV contrast material. COMMENTS: The liver is of uniform attenuation without mass or defect. There is no intra or extrahepatic biliary ductal dilatation. The spleen is normal. The gallbladder is contracted. The pancreas is of normal co ntour and attenuation characteristics. There is no evidence of adrenal mass. The kidneys are normal in size, shape and configuration. No renal or ureteral calculi are identified. There is no hydroureter or hydronephrosis. There is no evidence for appendicitis. Diffuse colonic diverticulosis is seen without evidence of di verticulitis There is no bowel wall thickening. No evidence for small or large bowel obstruction. Th ere is no evidence of abdominal ascites or lymphadenopathy. There is no evidence of intrinsic or extrinsic bladder mass. There is no pelvic ascites or lymphadeno zeke. The uterus and ovaries are not well seen, likely atrophic. Images of the lung bases show no evidence of pleural or parenchymal mass. There are no pleural effusi ons. The bony structures are free of lytic or blastic lesions. Multilevel degenerative changes are seen in volving the thoracolumbar spine. Scattered calcifications are seen involving the aorta and major branches compatible with atherosclero sis. IMPRESSION: Diffuse colonic diverticulosis is seen without evidence of diverticulitis No acute abdominal pelvic pathology. Thank you for your kind referral of this patient.
[2016-10-11] MEDS: LATANOPROST 0.005% OPHTH SOLN 2.5 ML OU SCH (20:49)
[2016-10-11] MEDS: ONDANSETRON 4MG/2ML VIAL (J2405) IV PRN (21:52)
[2016-10-11 22:00] VITALS: BP 121/57
[2016-10-11] MEDS: ACETAMINOPHEN 500 MG TAB PO PRN (23:24)
[2016-10-12 06:00] VITALS: BP 108/54
[2016-10-12 07:20] LABS: BASO % 0.8 % (0.0-1.0); EOS # 0.1 K/mm3 (0.0-0.50); EOS % 1.6 % (0.0-3.0); LARGE UNSTAINED CELL # 0.4 K/mm3 (0.0-0.4); LARGE UNSTAINED CELL % 6.4 % (0.0-4.0); LYMPH # 1.9 K/mm3 (1.5-4.5); LYMPH % 30.7 % (24.0-44.0); MEAN CORPUSCULAR HEMOGLOBIN 21.5 pg (27.0-33.0); MEAN CORPUSCULAR HGB CONC 29.8 g/dl (32.0-36.5); MEAN CORPUSCULAR VOLUME 72.3 fl (80.0-96.0); MONO # 0.6 K/mm3 (0.0-0.8); MONO % 10.2 % (0.0-5.0); NEUTROPHILS % 50.3 % (36.0-66.0); PLATELET COUNT, AUTOMATED 223 k/mm3 (150-450); RED CELL DISTRIBUTION WIDTH 14.5 % (11.5-14.5)
[2016-10-12] MEDS: IPRATROPIUM 0.5MG/ALBUTEROL 2.5MG INH SOL UD 3ML (DUONEB)(J7620) NEB SCH ×3 (07:25→20:05)
[2016-10-12] MEDS: BUDESONIDE 0.5 MG/2 ML INHALATION SUSPENSION INH SCH ×2 (07:25→20:08)
[2016-10-12 07:32] LABS: ANION GAP 9 MEQ/L (8-16); BLOOD UREA NITROGEN 16 MG/DL (7-18); CALCIUM LEVEL 8.3 MG/DL (8.8-10.2); CARBON DIOXIDE LEVEL 29 MEQ/L (21-32); CHLORIDE LEVEL 101 MEQ/L (98-107); CREATININE FOR GFR 0.78 MG/DL (0.55-1.02); GLOMERULAR FILTRATION RATE > 60.0 (>32); GLUCOSE, FASTING 118 MG/DL (83-110); POTASSIUM SERUM 4.2 MEQ/L (3.5-5.1); SODIUM LEVEL 139 MEQ/L (136-145)
[2016-10-12] MEDS: amLODIPine 10 MG TAB PO SCH (09:00)
[2016-10-12] MEDS: LOSARTAN 50 MG TAB PO SCH (09:00)
[2016-10-12] MEDS: oxyBUTYnin 5 MG TAB PO SCH ×2 (09:29→20:22)
[2016-10-12] MEDS: SENOKOT S TAB PO SCH ×2 (09:29→20:22)
[2016-10-12] MEDS: LORATADINE 10 MG TAB PO SCH (09:29)
[2016-10-12] MEDS: AZITHROMYCIN 250 MG TAB PO SCH (09:29)
[2016-10-12] MEDS: risperiDONE 0.5 MG TAB PO SCH ×2 (09:29→20:22)
[2016-10-12] MEDS: PANTOPRAZOLE 40MG INJ (PROTONIX) (C9113) IV SCH (09:30)
[2016-10-12] MEDS: ENOXAPARIN 30 MG/0.3 ML SYR (J1650) SC SCH (09:31)
[2016-10-12] MEDS: FUROSEMIDE 40 MG/4 ML VIAL (J1940) IV SCH (09:31)
[2016-10-12] MEDS: SUCRALFATE SUSP 1GM/10ML UD PO SCH ×3 (09:33→20:22)
[2016-10-12] MEDS: POLYVINYL ALCOHOL OPHTH SOLN 15 ML(LIQUITEARS) OU SCH ×4 (09:33→20:23)
[2016-10-12] MEDS: MIRALAX *UNIT DOSE* 17GM PACKET PO SCH (10:37)
[2016-10-12] MEDS: BISACODYL 10 MG SUPP PR PRN (10:37)
--- NOTE | 2016-10-12 10:38 | IPNPDOC ---
Subjective General Date Seen The patient was seen on 10/12/16. Subjective Chief Complaint/HPI The patient is a 89-year-old female admitted with a reason for visit of Hypoxia Viral Syndrome. Events since last encounter patient very constipated with distension , refusing breakfast. had low grade fever this am. still requiring oxygen. Objective Physical Examination General Exam: Positive: Alert, Cooperative, No Acute Distress Eye Exam: Positive: Conjunctiva & lids normal, EOMI, PERRLA, Negative: Sclera icteric ENT Exam: Positive: Atraumatic, Mucous membr. moist/pink, Pharynx Normal Neck Exam: Positive: Supple, Negative: JVD, thyromegaly Chest Exam: Positive: Rales, Rhonchi Heart Exam: Positive: Normal S1, Normal S2, Rate Normal, Regular Rhythm, Negative: Murmurs, Rubs Telemetry: Positive: Sinus Abdomen Exam: Positive: BS Hypoactive, Soft, Tenderness Extremity Exam: Positive: Normal pulses, Negative: Clubbing, Cyanosis, Edema Assessment /Plan Problems Problems: (1) Abdominal pain Status: Acute Problem Text: due to constipation , CT abdomen and pelvis negative for any acute abnormality will give aggressive bowel regimen. . (2) Acute bronchitis Status: Acute Problem Text: will give azithromycin , continue with nebulizations. cxr negative for any infiltrates. will get CT chest (3) Hypoxia Status: Acute Problem Text: will continue with nebulizations, continue oxygen supplementation. (4) Viral syndrome Status: Acute Problem Text: respiratory panel is negative will continue with tylenol for fever or pain. (5) Developmental disability Status: Chronic Problem Text: [facility] at baseline independently ambulatory with walker, can feed by herself, unable to communicate but can understand and follow commands. (6) Glaucoma Status: Chronic (7) Hypertension Status: Chronic Plan/VTE VTE Prophylaxis Ordered?: Yes VS, I&O, 24H, Fishbone Vital Signs/I&O Vital Signs Date Time Temp Pulse Resp B/P Pulse Ox O2 Delivery O2 Flow Rate FiO2 10/12/16 09:00 124/56 10/12/16 09:00 71 10/12/16 06:00 98.2 23 91 High Flow Cannula 2.0 I&O- Last 24 Hours up to 6 AM 10/12/16 06:00 Intake Total 1440 ml Output Total 1 ml Balance 1439 ml Laboratory Data 24H LABS Laboratory Tests 2 10/11/16 18:20: Urine Amorphous Sediment , Urine Appearance HAZY, Urine Color YELLOW, Urine pH 5.0, Urine Specific Manito 1.008, Urine Protein NEGATIVE, Urine Glucose (UA) 1+ H, Urine Ketones NEGATIVE, Urine Urobilinogen 0.2, Urine Bilirubin NEGATIVE, Urine Leukocyte Esterase 3+H, Urine Bacteria (Auto) 3+H, Urine Blood 2+H, Urine Calcium Carbonate Cryst(Auto) , Urine Calcium Oxalate Cryst (Auto) , Urine Calcium Phosphate Eloise (Auto) , Urine Cellular Casts , Urine Cystine Crystals , Urine Granular Casts (Auto) , Urine Hyaline Casts (Auto) 0, Urine Leucine Crystals , Urine Mucus (Auto) , Urine Nitrite NEGATIVE, Urine Oval Fat Bodies ( Auto) , Urine RBC (Auto) 16H, Urine Renal Epithelial Cells , Urine Sperm (Auto) , Urine Squamous Epithelial Cells 0, Urine Transitional Epithelial Cells , Urine Trichomonas (Auto) , Urine Triple Phosphate Cryst (Auto) , Urine Tyrosine Crystals , Urine Uric Acid Crystals (Auto) , Urine WBC (Auto) 101H, Urine Waxy Casts (Auto) , Urine Yeast-Like Cells (Auto) 10/12/16 07:05: Anion Gap 9, White Blood Count 6.0, Red Blood Count 4.41, Hemoglobin 9.5L, Hematocrit 31.9L, Mean Corpuscular Volume 72.3L, Mean Corpuscular Hemoglobin 21.5L, Mean Corpuscular Hemoglobin Concent 29.8L, Red Cell Distribution Width 14.5, Platelet Count 223, Neutrophils (%) (Auto) 50.3, Lymphocytes (%) (Auto) 30.7, Monocytes (%) (Auto) 10.2H, Eosinophils (%) (Auto) 1.6, Basophils (%) ( Auto) 0.8, Neutrophils # (Auto) 3.0, Lymphocytes # (Auto) 1.9, Monocytes # (Auto ) 0.6, Eosinophils # (Auto) 0.1, Basophils # (Auto) 0.0, Blood Urea Nitrogen 16 , Creatinine 0.78, Sodium Level 139, Potassium Level 4.2, Chloride Level 101, Carbon Dioxide Level 29, Calcium Level 8.3L, Glomerular Filtration Rate > 60.0, Large Unclassified Cells # 0.4, Large Unclassified Cells % 6.4H CBC/BMP Laboratory Tests 10/12/16 07:05 Calcium Level 8.3 L, Red Blood Count 4.41, Mean Corpuscular Volume 72.3 L, Mean Corpuscular Hemoglobin 21.5 L, Mean Corpuscular Hemoglobin Concent 29.8 L, Red Cell Distribution Width 14.5, Neutrophils (%) (Auto) 50.3, Lymphocytes (%) (Auto ) 30.7, Monocytes (%) (Auto) 10.2 H, Eosinophils (%) (Auto) 1.6, Basophils (%) ( Auto) 0.8, Neutrophils # (Auto) 3.0, Lymphocytes # (Auto) 1.9, Monocytes # (Auto ) 0.6, Eosinophils # (Auto) 0.1, Basophils # (Auto) 0.0 Microbiology Microbiology 10/10/16 Blood Culture - Preliminary, Resulted No growth after 24 hours . All specim... 10/10/16 Blood Culture - Preliminary, Resulted No growth after 24 hours . All specim... 10/10/16 Respiratory Virus Panel (PCR) (ABHIJIT) - Final, Complete 10/10/16 Influenza Virus Type A Antigen - Final, Complete 10/10/16 Influenza Virus Type B Antigen - Final, Complete 10/11/16 Urine Culture, Received Pending JESSIE MORRIS MD Oct 12, 2016 10:38
[2016-10-12 14:00] VITALS: BP 139/65
--- NOTE | 2016-10-12 15:18 | EDDOCDS ---
Physician Documentation [facility] Name: Anne Nemwan Age: 89 yrs Sex: Female : 1925 Arrival Date: 10/10/2016 Time: 06:28 Bed Admit Hold Private MD: Rochelle Cole PA-C Disposition: 10/10/16 08:39 Hospitalization ordered by Jose Eduardo Amezcua for Inpatient Admission. Preliminary diagnosis is Fever, unspecified - Hypoxia. - Bed requested for 4 [place]. - Status is Inpatient Admission. aa3 - Condition is Stable. - Problem is new. - Symptoms are unchanged. HPI: 10/10 06:41 This 89 yrs old Female presents to ER via Ambulance with complaints of Flu pc Symptoms. 06:41 The history is obtained from [facility] staff. She awoke this morning with a runny nose, cough pc and was too weak to stand with assistance. She had a tympanic temp of 102.6F per staff. EMS were called. They found her hypoxic with a PO of 86% on room air. No other history is available. The patient has not experienced similar symptoms in the past. The patient has been recently seen by their primary care provider, for a routine, regularly scheduled appointment. Historical: - Allergies: Ibuprofenavoids; Lisinopriladverse reaction; - Home Meds: 1. vitamin E 400 unit Oral cap daily 2. Risperdal 0.5 mg Oral tab 2 times per day 3. oxybutynin chloride 5 mg Oral tab 1 tab 2 times per day 4. Boniva 150 mg oral tab 1 tab once moly 5. ranitidine HCl 15 mg/mL Oral syrp 2 times per day 6. Carafate 100 mg/mL Oral susp 10 mL three times a day 7. losartan 100 mg oral tab 1 tab once daily 8. latanoprost 0.005 % ophthalmic drop 1 drop nightly 9. PreserVision AREDS oral twice a day 10. amlodipine 10 mg Oral tab 1 tab once daily 11. metoclopramide HCl 5 mg/5 mL Oral soln 4 times per day 12. Artificial Tears Opht four times a day 13. lactulose 10 gram/15 mL Oral soln once daily 14. Calcarb 600 With Vitamin D Oral twice a day - PMHx: Hypertension; Diverticulitis; Mental Retardation; - The history from nurses notes was reviewed: and I agree with what is documented. - Social history: Smoking status: Patient states was never smoker of tobacco. Patient is speech impaired. - : The pt / caregiver states he / she is not on anticoagulants. Home medication list is obtained from the facility OCT. - Hospitalizations: : The patient was recently seen at [facility], and discharged 2 month(s) ago, for unrelated complaints. - Exposure Risk Screening:: None identified. - Immunization history:: All immunizations up-to-date. - Family history: Not pertinent. - Social history:: the patient is a non-smoker, the patient does not drink alcohol. ROS: 06:41 Unable to reliably obtain pc Exam: 06:41 General Appearance: no acute distress, alert, will not cooperate for oral temp. pc 06:41 EENT: normal eye inspection, pharynx normal, mucous membranes moist purulent nasal discharge. 06:41 Neck: The exam reveals no acute abnormalities. ROM is normal and painless. No nuchal rigidity is noted.. 06:41 Respiratory: no respiratory distress, Breath sounds: wheezing, scattered. 06:41 CVS: regular pulse rate, regular rhythm, normal S1 and S2, no murmurs, strong peripheral pulses. 06:41 Abdomen: soft, non-tender, no organomegaly, normal bowel sounds. 06:41 Back: normal inspection. 06:41 Skin: skin color is normal, warm, dry. 06:41 Extremities: The extremities have a grossly normal appearance. 06:41 Neuro: cranial nerves normal as tested, no motor deficits, no sensory deficits. Vital Signs: 06:38 BP 133 / 63; Pulse 92; Resp 20; Temp 100.8(TE); Pulse Ox 86% on R/A; mlc 06:38 Pulse Ox 91% on 2 lpm NC; mlc 06:43 Weight 77.79 kg / 171.5 lbs; Height 5 ft. 1 in. (154.94 cm); Pain 0/10; kas2 07:58 BP 124 / 78; Pulse 88; Resp 20; Pulse Ox 95% 4 lpm ; jmk 08:49 Pulse 81; Resp 20; Temp 100.3; jmk 06:43 Body Mass Index 32.40 (77.79 kg, 154.94 cm) kas2 MDM: 06:41 Obtain sample by nasopharyngeal swab ordered. pc 06:41 Call Respiratory ordered. pc 06:41 IV Saline Lock ordered. pc 06:41 Stamp Pad Finisher/Pulse Ox/q 60 min VS ordered. pc 06:41 Differential Diagnosis: URI r/o influenza/pneumonia; hypoxia. Plan: labs, imaging, meds.pc 06:42 Call Respiratory complete. sls1 06:42 -Influenza A&B Rapid Antigen - Nose Ordered. EDMS 06:42 -Arterial Blood Gas Ordered. EDMS 06:42 CBC with Diff Ordered. EDMS 06:42 MED Profile Ordered. EDMS 06:43 Chest, 2 View (pa\E\lat) Ordered. EDMS 06:46 Albuterol 5 mg Nebulizer once ordered. pc 06:47 Oxygen 2L via NC, titrate to maintain PO >95% ordered. pc 07:24 -Influenza A&B Rapid Antigen - Nose Reviewed. br1 07:24 -Arterial Blood Gas Reviewed. br1 07:31 CBC with Diff Reviewed. br1 07:33 ECG WITH READING ER PHYS+CARDIAG ordered. EDMS 07:34 Acetaminophen Tablet 650 mg PO once ordered. br1 07:34 BNP Ordered. EDMS 07:37 TROPONIN Ordered. EDMS 07:52 BED REQUEST+ADM ordered. EDMS 08:04 Financial registration complete. lg 08:13 MED Profile Reviewed. br1 08:13 BNP Reviewed. br1 08:13 TROPONIN Reviewed. br1 08:37 [facility] Payment Agreement was scanned into [employer] and attached to record. lg 10:17 RESPIRATORY PANEL Ordered. EDMS 10:22 Admission / Observation Status ordered. EDMS 10:26 BLOOD CULTURES Ordered. EDMS 10:26 BLOOD CULTURES Ordered. EDMS 12:19 PUREED DIET ordered. EDMS 13:58 URINE CULTURE Ordered. EDMS 02/ 10:21 T-Sheet-- Draft Copy was scanned into [employer] and attached to record. gb 10:21 ECG/EKG was scanned into [employer] and attached to record. gb 10:21 Radiology Report was scanned into [employer] and attached to record. gb Administered Medications: 10/10 06:52 Drug: Albuterol 5 mg [albuterol sulfate 2.5 mg/0.5 mL solution for nebulization (1 mL)] kt1 Route: Nebulizer; 07:58 Drug: Acetaminophen 650 mg [acetaminophen 325 mg tablet (2 tabs)] Route: PO; john Signatures: Dispatcher [employer] EDMS Chafe, Ced, MD MD pc Tran, Alyssa, Grocery Store Clerk Unit lbd Alicia Martinez, Reg Reg gb Kari Pop, Reg Reg lg Carlos A Grajeda MD MD br1 Lizzeth Andersen RN RN sls1 Sheyla KumarRN RN aa3 Wilma McdonoughRN RN kas2 Clarke Fox RN, Kristin kt1 The chart was reviewed and I authenticate all verbal orders and agree with the evaluation and treatment provided.Corrections: (The following items were deleted from the chart) 07:37 07:34 TROPONIN+LAB ordered. EDMS EDMS 13:59 10:26 URINALYSIS ordered. EDMS EDMS Attachments: 08:37 [facility] Payment Agreement lg 10/11 10:21 T-Sheet-- Draft Copy gb 10:21 ECG/EKG gb Chart Complete MTDD
--- NOTE | 2016-10-12 15:18 | EDDOCDS ---
Physician Documentation [facility] Name: Anne Newman Age: 89 yrs Sex: Female : 1925 Arrival Date: 10/10/2016 Time: 06:28 Bed Admit Hold Private MD: Rochelle Cole PA-C Disposition: 10/10/16 08:39 Hospitalization ordered by Jose Eduardo Amezcua for Inpatient Admission. Preliminary diagnosis is Fever, unspecified - Hypoxia. - Bed requested for 4 [place]. - Status is Inpatient Admission. aa3 - Condition is Stable. - Problem is new. - Symptoms are unchanged. HPI: 10/10 06:41 This 89 yrs old Female presents to ER via Ambulance with complaints of Flu pc Symptoms. 06:41 The history is obtained from [facility] staff. She awoke this morning with a runny nose, cough pc and was too weak to stand with assistance. She had a tympanic temp of 102.6F per staff. EMS were called. They found her hypoxic with a PO of 86% on room air. No other history is available. The patient has not experienced similar symptoms in the past. The patient has been recently seen by their primary care provider, for a routine, regularly scheduled appointment. Historical: - Allergies: Ibuprofenavoids; Lisinopriladverse reaction; - Home Meds: 1. vitamin E 400 unit Oral cap daily 2. Risperdal 0.5 mg Oral tab 2 times per day 3. oxybutynin chloride 5 mg Oral tab 1 tab 2 times per day 4. Boniva 150 mg oral tab 1 tab once moly 5. ranitidine HCl 15 mg/mL Oral syrp 2 times per day 6. Carafate 100 mg/mL Oral susp 10 mL three times a day 7. losartan 100 mg oral tab 1 tab once daily 8. latanoprost 0.005 % ophthalmic drop 1 drop nightly 9. PreserVision AREDS oral twice a day 10. amlodipine 10 mg Oral tab 1 tab once daily 11. metoclopramide HCl 5 mg/5 mL Oral soln 4 times per day 12. Artificial Tears Opht four times a day 13. lactulose 10 gram/15 mL Oral soln once daily 14. Calcarb 600 With Vitamin D Oral twice a day - PMHx: Hypertension; Diverticulitis; Mental Retardation; - The history from nurses notes was reviewed: and I agree with what is documented. - Social history: Smoking status: Patient states was never smoker of tobacco. Patient is speech impaired. - : The pt / caregiver states he / she is not on anticoagulants. Home medication list is obtained from the facility OCT. - Hospitalizations: : The patient was recently seen at [facility], and discharged 2 month(s) ago, for unrelated complaints. - Exposure Risk Screening:: None identified. - Immunization history:: All immunizations up-to-date. - Family history: Not pertinent. - Social history:: the patient is a non-smoker, the patient does not drink alcohol. ROS: 06:41 Unable to reliably obtain pc Exam: 06:41 General Appearance: no acute distress, alert, will not cooperate for oral temp. pc 06:41 EENT: normal eye inspection, pharynx normal, mucous membranes moist purulent nasal discharge. 06:41 Neck: The exam reveals no acute abnormalities. ROM is normal and painless. No nuchal rigidity is noted.. 06:41 Respiratory: no respiratory distress, Breath sounds: wheezing, scattered. 06:41 CVS: regular pulse rate, regular rhythm, normal S1 and S2, no murmurs, strong peripheral pulses. 06:41 Abdomen: soft, non-tender, no organomegaly, normal bowel sounds. 06:41 Back: normal inspection. 06:41 Skin: skin color is normal, warm, dry. 06:41 Extremities: The extremities have a grossly normal appearance. 06:41 Neuro: cranial nerves normal as tested, no motor deficits, no sensory deficits. Vital Signs: 06:38 BP 133 / 63; Pulse 92; Resp 20; Temp 100.8(TE); Pulse Ox 86% on R/A; mlc 06:38 Pulse Ox 91% on 2 lpm NC; mlc 06:43 Weight 77.79 kg / 171.5 lbs; Height 5 ft. 1 in. (154.94 cm); Pain 0/10; kas2 07:58 BP 124 / 78; Pulse 88; Resp 20; Pulse Ox 95% 4 lpm ; jmk 08:49 Pulse 81; Resp 20; Temp 100.3; jmk 06:43 Body Mass Index 32.40 (77.79 kg, 154.94 cm) kas2 MDM: 06:41 Obtain sample by nasopharyngeal swab ordered. pc 06:41 Call Respiratory ordered. pc 06:41 IV Saline Lock ordered. pc 06:41 Music Minister/Pulse Ox/q 60 min VS ordered. pc 06:41 Differential Diagnosis: URI r/o influenza/pneumonia; hypoxia. Plan: labs, imaging, meds.pc 06:42 Call Respiratory complete. sls1 06:42 -Influenza A&B Rapid Antigen - Nose Ordered. EDMS 06:42 -Arterial Blood Gas Ordered. EDMS 06:42 CBC with Diff Ordered. EDMS 06:42 MED Profile Ordered. EDMS 06:43 Chest, 2 View (pa\E\lat) Ordered. EDMS 06:46 Albuterol 5 mg Nebulizer once ordered. pc 06:47 Oxygen 2L via NC, titrate to maintain PO >95% ordered. pc 07:24 -Influenza A&B Rapid Antigen - Nose Reviewed. br1 07:24 -Arterial Blood Gas Reviewed. br1 07:31 CBC with Diff Reviewed. br1 07:33 ECG WITH READING ER PHYS+CARDIAG ordered. EDMS 07:34 Acetaminophen Tablet 650 mg PO once ordered. br1 07:34 BNP Ordered. EDMS 07:37 TROPONIN Ordered. EDMS 07:52 BED REQUEST+ADM ordered. EDMS 08:04 Financial registration complete. lg 08:13 MED Profile Reviewed. br1 08:13 BNP Reviewed. br1 08:13 TROPONIN Reviewed. br1 08:37 [facility] Payment Agreement was scanned into [employer] and attached to record. lg 10:17 RESPIRATORY PANEL Ordered. EDMS 10:22 Admission / Observation Status ordered. EDMS 10:26 BLOOD CULTURES Ordered. EDMS 10:26 BLOOD CULTURES Ordered. EDMS 12:19 PUREED DIET ordered. EDMS 13:58 URINE CULTURE Ordered. EDMS 02/ 10:21 T-Sheet-- Draft Copy was scanned into [employer] and attached to record. gb 10:21 ECG/EKG was scanned into [employer] and attached to record. gb 10:21 Radiology Report was scanned into [employer] and attached to record. gb Administered Medications: 10/10 06:52 Drug: Albuterol 5 mg [albuterol sulfate 2.5 mg/0.5 mL solution for nebulization (1 mL)] kt1 Route: Nebulizer; 07:58 Drug: Acetaminophen 650 mg [acetaminophen 325 mg tablet (2 tabs)] Route: PO; john Signatures: Dispatcher [employer] EDMS Chafe, Ced, MD MD pc Tran, Alyssa, Account Underwriter Unit lbd Alicia Martinez, Reg Reg gb Kari Pop, Reg Reg lg Carlos A Grajeda MD MD br1 Lizzeth Andersen RN RN sls1 Sheyla KumarRN RN aa3 Wilma McdonoughRN RN kas2 Clarke Fox RN, Kristin kt1 The chart was reviewed and I authenticate all verbal orders and agree with the evaluation and treatment provided.Corrections: (The following items were deleted from the chart) 07:37 07:34 TROPONIN+LAB ordered. EDMS EDMS 13:59 10:26 URINALYSIS ordered. EDMS EDMS Attachments: 08:37 [facility] Payment Agreement lg 10/11 10:21 T-Sheet-- Draft Copy gb 10:21 ECG/EKG gb Chart Complete MTDD
--- NOTE | 2016-10-12 15:19 | EDDOCDS ---
Nurse's Notes [facility] Name: Anne Newman Age: 89 yrs Sex: Female : 1925 Arrival Date: 10/10/2016 Time: 06:28 Bed Admit Hold Private MD: Rochelle Cole PA-C Diagnosis: Fever, unspecified-Hypoxia Presentation: 10/10 06:30 Presenting complaint: EMS states: Patient from [facility]. Woke up this morning with weakness kas2 and not wanting to stand for staff. Temp was 102.6 for staff. Coughing and sneezing. SpO2 88% RA for EMS. Denies chest pain. Adult Sepsis Screening: The patient does not have new or worsening altered mentation. Patient's respiratory rate is less than 22. Systolic blood pressure is greater than 100. Patient has a qSOFA score of 0- Negative Sepsis Screen. Suicide/Homicide risk assessment- the patient denies having any suicidal and/or homicidal ideations and does not present with any other emotional, behavioral or mental health complaints. 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 Transition of care: patient was not received from another setting of care. 06:30 Acuity: ABDIAZIZ Level 3 kas2 06:30 Method Of [place] [facility] [place] Assessment: 06:36 General: Appears in no apparent distress, comfortable, well nourished, well groomed, kas2 Behavior is appropriate for age, cooperative. Pain: Location: abdomen and throat Unable to use pain scale. Does not appear to understand pain scale. Neurological: Level of Consciousness is awake, alert, confused, Oriented to person. Cardiovascular: Capillary refill < 3 seconds Heart tones S1 S2 present Rhythm is sinus rhythm No ectopy. Respiratory: Airway is patent Respiratory effort is even, unlabored, Respiratory pattern is regular, symmetrical, Breath sounds are diminished bilaterally. Derm: Skin is intact, Skin is dry, Skin is pink, warm & dry. Skin temperature is warm. Musculoskeletal: No deficits noted. Injury Description: No known injury. Historical: - Allergies: Ibuprofenavoids; Lisinopriladverse reaction; - Home Meds: 1. vitamin E 400 unit Oral cap daily 2. Risperdal 0.5 mg Oral tab 2 times per day 3. oxybutynin chloride 5 mg Oral tab 1 tab 2 times per day 4. Boniva 150 mg oral tab 1 tab once moly 5. ranitidine HCl 15 mg/mL Oral syrp 2 times per day 6. Carafate 100 mg/mL Oral susp 10 mL three times a day 7. losartan 100 mg oral tab 1 tab once daily 8. latanoprost 0.005 % ophthalmic drop 1 drop nightly 9. PreserVision AREDS oral twice a day 10. amlodipine 10 mg Oral tab 1 tab once daily 11. metoclopramide HCl 5 mg/5 mL Oral soln 4 times per day 12. Artificial Tears Opht four times a day 13. lactulose 10 gram/15 mL Oral soln once daily 14. Calcarb 600 With Vitamin D Oral twice a day - PMHx: Hypertension; Diverticulitis; Mental Retardation; - The history from nurses notes was reviewed: and I agree with what is documented. - Social history: Smoking status: Patient states was never smoker of tobacco. Patient is speech impaired. - : The pt / caregiver states he / she is not on anticoagulants. Home medication list is obtained from the facility OCT. - Hospitalizations: : The patient was recently seen at [facility], and discharged 2 month(s) ago, for unrelated complaints. - Exposure Risk Screening:: None identified. - Immunization history:: All immunizations up-to-date. - Family history: Not pertinent. - Social history:: the patient is a non-smoker, the patient does not drink alcohol. Screenin:42 Screening information is obtained from residence staff. Fall risk: At risk due to age, kas2 apparent cognitive impairment. Assistance ADL's: Requires assistance with meal preparation, this assistance is provided by bathing, assistance is provided by residence staff, dressing, assistance is provided by residence staff, toileting, assistance is provided by residence staff, ambulation, assistance is provided by residence staff, housework, assistance is provided by residence staff, medication administration, assistance is provided by residence staff. Abuse/DV Screen: The patient / caregiver reports he/she is: not in a situation that causes fear, pain or injury. Nutritional screening: No deficits noted. Advance Directives: Currently, there is a health care proxy, Ana Dickens. There is a living will, and a copy is available at this time. home support is adequate. Assessment: 06:41 General: See triage note. [facility] 07:22 General: Appears JRC client. Non verbal, but uses gestures. Dry oral mucosa. without jmk resp distress. coarse breath sounds to left base. Monitor is sr/st. without resp distress. sl intact to right upper ext.. Cardiovascular: Capillary refill < 3 seconds Clubbing of nail beds is absent Heart tones S1 S2 present. Respiratory: No deficits noted. Airway is patent Respiratory effort is even, unlabored, Respiratory pattern is regular, Breath sounds are coarse in left posterior lower lobe. GI: Abdomen is non- distended obese. 08:27 General: Appears without resp distress . quietly awaiting dispo. jmk 09:30 General: Appears without complaints. JRC at staff and reports she is at baseline. k Monitor is sr. Maintaining sat above 94 % with 3 l nc. No observed resp distress SL intact. awaiting admission. 10:30 General: Patient now ED pollack and brought to room 20. All charting will continue in [address] Vital Signs: 06:38 BP 133 / 63; Pulse 92; Resp 20; Temp 100.8(TE); Pulse Ox 86% on R/A; mlc 06:38 Pulse Ox 91% on 2 lpm NC; mlc 06:43 Weight 77.79 kg; Height 5 ft. 1 in. (154.94 cm); Pain 0/10; kas2 07:58 BP 124 / 78; Pulse 88; Resp 20; Pulse Ox 95% 4 lpm ; jmk 08:49 Pulse 81; Resp 20; Temp 100.3; jmk 06:43 Body Mass Index 32.40 (77.79 kg, 154.94 cm) [facility] Vitals: 06:38 Log In Time N/A - [place] [facility] [place] Course: 06:29 Patient visited by Emeka Kline PCA. mdr 06:29 Patient moved to Waiting mdr 06:30 Rochelle Cole is Private Physician. mdr 06:30 Wilma Mcdonough,NATALIA is Primary Nurse. mdr 06:30 Patient moved to 9 mdr 06:33 Triage Initiated [facility] 06:40 Ced Harris MD is Attending Physician. pc 06:40 Patient visited by Ced Harris MD. pc 06:40 O2 via nasal cannula \T\ 2L/min. [facility] [place] 06:43 protection agent on. Pulse ox on. NIBP on. kas2 06:48 -Influenza A&B Rapid Antigen - Nose [place]. [facility] [place]57 Patient visited by Wilma Mcdonough RN. kas2 06:57 Inserted saline lock: 20 gauge in right forearm The patient tolerated the procedure kas2 well. No procedures done that require assistance. 06:59 -Arterial Blood Gas Sent. kt1 07:02 Attending Physician role handed off by Ced Harris MD br1 07:02 Carlos A Grajeda MD is Attending Physician. br1 07:03 Patient visited by Wilma Mcdonough RN. kas2 07:08 Primary Nurse role handed off by Wilma Mcdonough RN mcp 07:22 MED Profile Sent. jmk 07:22 CBC with Diff Sent. jmk 07:42 TROPONIN Sent. jmk 07:57 EKG done. (by ED staff). Reviewed by Carlos A Grajeda MD. rn1 07:58 Patient visited by Drew Wheeler. rn1 07:59 Patient visited by Clarke Fox RN. jmk 08:14 Patient visited by Carlos A Grajeda MD. br1 08:37 [facility] [place] Payment Agreement was scanned into [employer] and attached to record. lg 08:39 Jose Eduardo Amezcua is Hospitalizing Provider. br1 09:03 Chest, 2 View (pa\E\lat) Returned. EDMS 10:07 Patient visited by Clarke Fox,NATALIA. jmk 11:03 Patient moved to 20 kp 11:14 Patient moved to Admit Hold kpj 13:53 The patient / caregiver is instructed regarding the plan of care and ED course. aa3 10/11 10:21 T-Sheet-- Draft Copy was scanned into [employer] and attached to record. gb 10:21 ECG/EKG was scanned into [employer] and attached to record. gb 10:21 Radiology Report was scanned into [employer] and attached to record. gb Administered Medications: 10/10 06:52 Drug: Albuterol 5 mg [albuterol sulfate 2.5 mg/0.5 mL solution for nebulization (1 mL)] kt1 Route: Nebulizer; 07:58 Drug: Acetaminophen 650 mg [acetaminophen 325 mg tablet (2 tabs)] Route: PO; john RT: 07:00 ABG's drawn from right radial artery pressure held for 5 minutes no bleeding noted kt1 pressure bandage applied specimen sent pt. tolerated well. Initial Med Neb Given as ordered Unable to give instruction due to patient's physical barriers, family/caregiver not present. Order Results: Lab Order: -Influenza A&B Rapid Antigen - Nose; SPEC'M 10/10/16 06:46 Test: INFLUENZA A RAPID SCR by ICA; Value: INFLUENZA A RESULTS NEGATIVE; Status: F Test: INFLUENZA A RAPID SCR by ICA; Value: Comments:; Status: F Test: INFLUENZA B RAPID SCR by ICA; Value: INFLUENZA B RESULTS NEGATIVE; Status: F Test Note: ; The Influenza test is a direct rapid immunoassay for the qualitative detection of Influenza viral antigen. Cell culture (Viral Culture) testing should be considered to confirm NEGATIVE results and to assist in detecting other viruses that can provide similar clinical symptoms. Please contact the lab within 24 hours ([phone]) if confirmatory testing is desired. Lab Order: -Arterial Blood Gas; SPEC'M 10/10/16 06:46 Test: ABG pH (ARTERIAL); Value: 7.443; Range: 7.350-7.450; Units: UNITS; Status: F Test: ABG PARTIAL PRESSURE CO2; Value: 38.6; Range: 35.0-45.0; Units: mmHg; Status: F Test: ABG PARTIAL PRESSURE O2; Value: 87.7; Range: 75.0-100.0; Units: mmHg; Status: F Test: ABG TOTAL CO2; Value: 27.0; Range: 23.0-31.0; Units: MEQ/L; Status: F Test: ABG HCO3; Value: 25.8; Range: 22.0-26.0; Units: MEQ/L; Status: F Test: ABG BASE EXCESS; Value: 1.7; Range: -2.0-2.0; Status: F Test: ABG STANDARD HCO3; Value: 26.0; Range: 22.0-26.0; Units: MEQ/L; Status: F Test: ABG O2 SATURATION; Value: 96.8; Range: 95.0-99.0; Units: %; Status: F Test: ABG DEVICE; Value: NASAL KHAI; Status: F Lab Order: CBC with Diff; SPEC'M 10/10/16 07:18 Test: WHITE BLOOD COUNT; Value: 7.7; Range: 4.0-10.0; Units: K/mm3; Status: F Test: RED BLOOD COUNT; Value: 4.83; Range: 4.00-5.40; Units: M/mm3; Status: F Test: HEMOGLOBIN; Value: 11.0; Range: 12.0-16.0; Abnormal: Below low normal; Units: g/dl; Status: F Test: HEMATOCRIT; Value: 34.1; Range: 36.0-47.0; Abnormal: Below low normal; Units: %; Status: F Test: MEAN CORPUSCULAR VOLUME; Value: 70.7; Range: 80.0-96.0; Abnormal: Below low normal; Units: fl; Status: F Test: MEAN CORPUSCULAR HEMOGLOBIN; Value: 22.7; Range: 27.0-33.0; Abnormal: Below low normal; Units: pg; Status: F Test: MEAN CORPUSCULAR HGB CONC; Value: 32.1; Range: 32.0-36.5; Units: g/dl; Status: F Test: RED CELL DISTRIBUTION WIDTH; Value: 14.6; Range: 11.5-14.5; Abnormal: Above high normal; Units: %; Status: F Test: PLATELET COUNT, AUTOMATED; Value: 261; Range: 150-450; Units: k/mm3; Status: F Test: NEUTROPHILS %; Value: 74.4; Range: 36.0-66.0; Abnormal: Above high normal; Units: %; Status: F Test: LYMPH %; Value: 9.2; Range: 24.0-44.0; Abnormal: Below low normal; Units: %; Status: F Test: MONO %; Value: 10.4; Range: 0.0-5.0; Abnormal: Above high normal; Units: %; Status: F Test: EOS %; Value: 0.3; Range: 0.0-3.0; Units: %; Status: F Test: BASO %; Value: 0.6; Range: 0.0-1.0; Units: %; Status: F Test: LARGE UNSTAINED CELL %; Value: 5.1; Range: 0.0-4.0; Abnormal: Above high normal; Units: %; Status: F Test: NEUTROPHILS #; Value: 5.8; Range: 1.8-7.7; Units: K/mm3; Status: F Test: LYMPH #; Value: 0.7; Range: 1.5-4.5; Abnormal: Below low normal; Units: K/mm3; Status: F Test: MONO #; Value: 0.8; Range: 0.0-0.8; Units: K/mm3; Status: F Test: EOS #; Value: 0.0; Range: 0.0-0.50; Units: K/mm3; Status: F Test: BASO #; Value: 0.0; Range: 0.0-0.2; Units: K/mm3; Status: F Test: LARGE UNSTAINED CELL #; Value: 0.4; Range: 0.0-0.4; Units: K/mm3; Status: F Lab Order: MED Profile; SPECM 10/10/16 07:18 Test: GLUCOSE, FASTING; Value: 141; Range: 83-110; Abnormal: Above high normal; Units: MG/DL; Status: F Test: BLOOD UREA NITROGEN; Value: 11; Range: 7-18; Units: MG/DL; Status: F Test: CREATININE FOR GFR; Value: 0.85; Range: 0.55-1.02; Units: MG/DL; Status: F Test: GLOMERULAR FILTRATION RATE; Value: > 60.0; Range: >32; Status: F Test: SODIUM LEVEL; Value: 139; Range: 136-145; Units: MEQ/L; Status: F Test: POTASSIUM SERUM; Value: 3.9; Range: 3.5-5.1; Units: MEQ/L; Status: F Test: CHLORIDE LEVEL; Value: 101; Range: 98-107; Units: MEQ/L; Status: F Test: CARBON DIOXIDE LEVEL; Value: 27; Range: 21-32; Units: MEQ/L; Status: F Test: ANION GAP; Value: 11; Range: 8-16; Units: MEQ/L; Status: F Test: CALCIUM LEVEL; Value: 8.6; Range: 8.8-10.2; Abnormal: Below low normal; Units: MG/DL; Status: F Test Note: ; Units are mL/min/1.73 m2 Chronic Kidney Disease Staging per NKF: Stage I & II GFR >=60 Normal to Mildly Decreased Stage III GFR 30-59 Moderately Decreased Stage IV GFR 15-29 Severely Decreased Stage V GFR <15 Very Little GFR Left ESRD GFR <15 on BUSINESS SERVICES OFFICER Lab Order: BNP; SPEC'M 10/10/16 07:15 Test: BRAIN NATRIURETIC PEPTIDE; Value: 87.7; Range: <100; Units: PG/ML; Status: F Lab Order: TROPONIN; SPEC'M 10/10/16 07:18 Test: TROPONIN I; Value: < 0.02; Range: < 0.10; Units: NG/ML; Status: F Test Note: ; Troponin I Reference Interval for [employer] LOCI: 99th Percentile= 0.00-0.045 ng/ml Risk Stratification: <= 0.10 ng/ml Decreased Risk for Adverse Clinical Events. 0.10-1.50 ng/ml Increased Risk for Adverse Clinical Events. Evaluation of additional criterion and/or repeat testing in 2-6 hours is suggested to rule out myocardial damage. >= 1.50 ng/ml Indicative of Myocardial Injury. Lab Order: RESPIRATORY PANEL; SPEC'M 10/10/16 06:46 Test: RESPIRATORY PANEL; Value: RP PANEL RESULT NEGATIVE by PCR; Status: F Test: RESPIRATORY PANEL; Value: Comments:; Status: F Test Note: ; This respiratory PCR panel detects Influenza A H1, H3 and 2009 H1 viruses, Influenza B virus, Respiratory syncytial virus, Human metapneumovirus, Parainfluenza virus 1, 2, 3 and 4, Adenovirus, Rhinovirus/Enterovirus, Coronavirus HKU1, NL63, OC43 and 229E, Bordetella pertussis, Mycoplasma pneumoniae and Chlamydia pneumoniae. Radiology Order: Chest, 2 View (pa\E\lat) Test: Chest, 2 View (pa\E\lat) REASON FOR EXAMINATION: Cough; Chest x-ray: Two views.; ; History: Cough.; ; Comparison chest x-ray August 20, 2016.; ; Findings: EKG monitoring electrodes overlie the chest. Cardiomegaly is observed; unchanged. The lungs are exposed at a low level of inspiration similar to the; prior study. There is some plate-like atelectasis visible in both lung bases.; No definite infiltrate.; ; Impression:; ; Bibasilar subsegmental plate-like atelectasis. No definite infiltrate.; Cardiomegaly. Relatively low level of inspiration.; ; Unreviewed; Outcome: 08:39 Decision to Hospitalize by Provider. br1 13:52 Discharge Assessment: Patient awake and alert. Oriented to person, Patient Patient [facility] aa3 resdient patient administered narcotics - no. The following High Risk Discharge criteria are identified: None. Admitted to Med/Surg accompanied by tech, with oxygen, with chart. Condition: good. CT Study completed. Admission hand-off: Report called to NATALIA Norton on [address] [facility]. Property :Personal belongings accompany Pt. Belongings with [facility] staff member. 14:17 Patient left the ED. aa3 Signatures: Dispatcher [employer] EDMS Ced Harris MD MD pc Jobson, Karen, RN RN Clarke Corey,RN RN Gloria Barboza, RN RN lAicia Arriola, Reg Reg gb Kari Pop, Reg Reg lg Bang,Melissa kt1 Carlos A Grajeda MD MD br1 Sheyla KumarRN RN aa3 Lana TidwellRN Drew Gamboa rn1 Emeka Kline, Wilma Wilson,RN RN kas2 Chart Complete TONJA
[2016-10-12] MEDS: LATANOPROST 0.005% OPHTH SOLN 2.5 ML OU SCH (20:23)
[2016-10-12 22:00] VITALS: BP 123/67
[2016-10-13 06:00] VITALS: BP 136/62
[2016-10-13 06:46] LABS: BASO % 0.7 % (0.0-1.0); EOS # 0.1 K/mm3 (0.0-0.50); EOS % 2.2 % (0.0-3.0); LARGE UNSTAINED CELL # 0.2 K/mm3 (0.0-0.4); LYMPH # 1.8 K/mm3 (1.5-4.5); LYMPH % 26.2 % (24.0-44.0); MEAN CORPUSCULAR HEMOGLOBIN 21.9 pg (27.0-33.0); MEAN CORPUSCULAR HGB CONC 30.9 g/dl (32.0-36.5); MEAN CORPUSCULAR VOLUME 71.1 fl (80.0-96.0); MONO # 0.6 K/mm3 (0.0-0.8); MONO % 10.2 % (0.0-5.0); NEUTROPHILS # 3.5 K/mm3 (1.8-7.7); NEUTROPHILS % 57.8 % (36.0-66.0); PLATELET COUNT, AUTOMATED 244 k/mm3 (150-450); RED CELL DISTRIBUTION WIDTH 14.8 % (11.5-14.5)
[2016-10-13 06:54] LABS: ANION GAP 6 MEQ/L (8-16); BLOOD UREA NITROGEN 19 MG/DL (7-18); CALCIUM LEVEL 8.1 MG/DL (8.8-10.2); CARBON DIOXIDE LEVEL 31 MEQ/L (21-32); CHLORIDE LEVEL 101 MEQ/L (98-107); CREATININE FOR GFR 0.64 MG/DL (0.55-1.02); GLOMERULAR FILTRATION RATE > 60.0 (>32); GLUCOSE, FASTING 102 MG/DL (83-110); POTASSIUM SERUM 4.1 MEQ/L (3.5-5.1); SODIUM LEVEL 138 MEQ/L (136-145)
[2016-10-13] MEDS: IPRATROPIUM 0.5MG/ALBUTEROL 2.5MG INH SOL UD 3ML (DUONEB)(J7620) NEB SCH ×3 (07:36→23:21)
[2016-10-13] MEDS: BUDESONIDE 0.5 MG/2 ML INHALATION SUSPENSION INH SCH ×2 (07:36→19:34)
[2016-10-13] MEDS: ENOXAPARIN 30 MG/0.3 ML SYR (J1650) SC SCH (09:00)
[2016-10-13] MEDS: SUCRALFATE SUSP 1GM/10ML UD PO SCH ×3 (09:16→20:20)
[2016-10-13] MEDS: PANTOPRAZOLE 40MG INJ (PROTONIX) (C9113) IV SCH (09:16)
[2016-10-13] MEDS: LORATADINE 10 MG TAB PO SCH (09:17)
[2016-10-13] MEDS: FUROSEMIDE 40 MG/4 ML VIAL (J1940) IV SCH (09:17)
[2016-10-13] MEDS: LOSARTAN 50 MG TAB PO SCH (09:17)
[2016-10-13] MEDS: amLODIPine 10 MG TAB PO SCH (09:17)
[2016-10-13] MEDS: SENOKOT S TAB PO SCH ×2 (09:18→20:20)
[2016-10-13] MEDS: risperiDONE 0.5 MG TAB PO SCH ×2 (09:18→20:20)
[2016-10-13] MEDS: AZITHROMYCIN 250 MG TAB PO SCH (09:18)
[2016-10-13] MEDS: oxyBUTYnin 5 MG TAB PO SCH ×2 (09:18→20:20)
[2016-10-13] MEDS: POLYVINYL ALCOHOL OPHTH SOLN 15 ML(LIQUITEARS) OU SCH ×4 (09:18→20:20)
[2016-10-13] MEDS: MIRALAX *UNIT DOSE* 17GM PACKET PO SCH (09:18)
--- NOTE | 2016-10-13 12:50 | IPNPDOC ---
Subjective General Date Seen The patient was seen on 10/13/16. Subjective Chief Complaint/HPI The patient is a 89-year-old female admitted with a reason for visit of Hypoxia Viral Syndrome. Events since last encounter indicates that has some sore throat, ate her breakfast, had a bowel movement yesterday, had a t max of 100.7 yesterday , no fever this am. Objective Physical Examination General Exam: Positive: Alert, Cooperative, No Acute Distress Eye Exam: Positive: Conjunctiva & lids normal, EOMI, PERRLA, Negative: Sclera icteric ENT Exam: Positive: Atraumatic, Mucous membr. moist/pink, Pharynx Normal Neck Exam: Positive: Supple, Negative: JVD, thyromegaly Chest Exam: Positive: Rales, Rhonchi Heart Exam: Positive: Normal S1, Normal S2, Rate Normal, Regular Rhythm, Negative: Murmurs, Rubs Telemetry: Positive: Sinus Abdomen Exam: Positive: BS Hypoactive, Soft, Tenderness Extremity Exam: Positive: Normal pulses, Negative: Clubbing, Cyanosis, Edema Assessment /Plan Problems Problems: (1) Abdominal pain Status: Acute Problem Text: due to constipation , CT abdomen and pelvis negative for any acute abnormality will give aggressive bowel regimen. . (2) Acute bronchitis Status: Acute Problem Text: will change to levofloxacin to cover for possible UTI also as dirty urine with persistent low grade fever. , continue with nebulizations. cxr negative for any infiltrates. will get CT chest (3) Hypoxia Status: Acute Problem Text: will continue with nebulizations, continue oxygen supplementation. (4) Viral syndrome Status: Acute Problem Text: respiratory panel is negative will continue with tylenol for fever or pain. (5) Developmental disability Status: Chronic Problem Text: rom JRC at baseline independently ambulatory with walker, can feed by herself, unable to communicate but can understand and follow commands. (6) Glaucoma Status: Chronic (7) Hypertension Status: Chronic (8) Abnormal urinalysis Status: Acute Problem Text: dirty ua with fever will start on levofloxacin . urine culture pending. Plan/VTE VTE Prophylaxis Ordered?: Yes VS, I&O, 24H, Fishbone Vital Signs/I&O Vital Signs Date Time Temp Pulse Resp B/P Pulse Ox O2 Delivery O2 Flow Rate FiO2 10/13/16 09:17 160/80 2/11/17 09:17 80 10/13/16 09:14 Nasal Cannula 1.0 10/13/16 06:00 98.5 19 92 I&O- Last 24 Hours up to 6 AM 10/13/16 06:00 Intake Total 1080 ml Output Total 800 ml Balance 280 ml Laboratory Data 24H LABS Laboratory Tests 2 10/13/16 05:45: Anion Gap 6L, White Blood Count 6.0, Red Blood Count 4.04, Hemoglobin 8.9L, Hematocrit 28.8L, Mean Corpuscular Volume 71.1L, Mean Corpuscular Hemoglobin 21.9L, Mean Corpuscular Hemoglobin Concent 30.9L, Red Cell Distribution Width 14.8H, Platelet Count 244, Neutrophils (%) (Auto) 57.8, Lymphocytes (%) (Auto) 26.2, Monocytes (%) (Auto) 10.2H, Eosinophils (%) (Auto) 2.2, Basophils (%) ( Auto) 0.7, Neutrophils # (Auto) 3.5, Lymphocytes # (Auto) 1.8, Monocytes # (Auto ) 0.6, Eosinophils # (Auto) 0.1, Basophils # (Auto) 0.0, Blood Urea Nitrogen 19H , Creatinine 0.64, Sodium Level 138, Potassium Level 4.1, Chloride Level 101, Carbon Dioxide Level 31, Calcium Level 8.1L, Glomerular Filtration Rate > 60.0, Large Unclassified Cells # 0.2, Large Unclassified Cells % 3.0 CBC/BMP Laboratory Tests 10/13/16 05:45 Calcium Level 8.1 L, Red Blood Count 4.04, Mean Corpuscular Volume 71.1 L, Mean Corpuscular Hemoglobin 21.9 L, Mean Corpuscular Hemoglobin Concent 30.9 L, Red Cell Distribution Width 14.8 H, Neutrophils (%) (Auto) 57.8, Lymphocytes (%) ( Auto) 26.2, Monocytes (%) (Auto) 10.2 H, Eosinophils (%) (Auto) 2.2, Basophils ( %) (Auto) 0.7, Neutrophils # (Auto) 3.5, Lymphocytes # (Auto) 1.8, Monocytes # ( Auto) 0.6, Eosinophils # (Auto) 0.1, Basophils # (Auto) 0.0 Microbiology Microbiology 10/10/16 Blood Culture - Preliminary, Resulted No Growth after 48 hours. All Specime... 10/10/16 Blood Culture - Preliminary, Resulted No Growth after 48 hours. All Specime... 10/10/16 Respiratory Virus Panel (PCR) (ABHIJIT) - Final, Complete 10/10/16 Influenza Virus Type A Antigen - Final, Complete 10/10/16 Influenza Virus Type B Antigen - Final, Complete 10/11/16 Urine Culture, Received Pending JESSIE MORRIS MD Oct 13, 2016 12:50
[2016-10-13] MEDS ORDERED: LevoFLOXacin 250 MG TABLET PO ONE (13:30)
[2016-10-13] MEDS: LATANOPROST 0.005% OPHTH SOLN 2.5 ML OU SCH (20:20)
[2016-10-13 22:00] VITALS: BP 127/59
[2016-10-14 06:00] VITALS: BP 131/60
[2016-10-14] MEDS ORDERED: LevoFLOXacin 250 MG TABLET PO SCH (06:00)
[2016-10-14 06:41] LABS: BASO % 0.5 % (0.0-1.0); EOS # 0.2 K/mm3 (0.0-0.50); EOS % 2.4 % (0.0-3.0); LARGE UNSTAINED CELL # 0.2 K/mm3 (0.0-0.4); LARGE UNSTAINED CELL % 3.2 % (0.0-4.0); LYMPH # 1.7 K/mm3 (1.5-4.5); LYMPH % 26.7 % (24.0-44.0); MEAN CORPUSCULAR HEMOGLOBIN 21.7 pg (27.0-33.0); MEAN CORPUSCULAR HGB CONC 30.4 g/dl (32.0-36.5); MEAN CORPUSCULAR VOLUME 71.4 fl (80.0-96.0); MONO # 0.4 K/mm3 (0.0-0.8); MONO % 6.6 % (0.0-5.0); NEUTROPHILS # 3.9 K/mm3 (1.8-7.7); NEUTROPHILS % 60.6 % (36.0-66.0); PLATELET COUNT, AUTOMATED 256 k/mm3 (150-450); RED CELL DISTRIBUTION WIDTH 14.4 % (11.5-14.5); WHITE BLOOD COUNT 6.4 K/mm3 (4.0-10.0)
[2016-10-14 07:00] LABS: ANION GAP 6 MEQ/L (8-16); BLOOD UREA NITROGEN 25 MG/DL (7-18); CALCIUM LEVEL 8.4 MG/DL (8.8-10.2); CARBON DIOXIDE LEVEL 33 MEQ/L (21-32); CHLORIDE LEVEL 98 MEQ/L (98-107); CREATININE FOR GFR 0.83 MG/DL (0.55-1.02); GLOMERULAR FILTRATION RATE > 60.0 (>32); GLUCOSE, FASTING 120 MG/DL (83-110); POTASSIUM SERUM 3.8 MEQ/L (3.5-5.1); SODIUM LEVEL 137 MEQ/L (136-145)
[2016-10-14] MEDS: IPRATROPIUM 0.5MG/ALBUTEROL 2.5MG INH SOL UD 3ML (DUONEB)(J7620) NEB SCH ×3 (07:27→19:40)
[2016-10-14] MEDS: BUDESONIDE 0.5 MG/2 ML INHALATION SUSPENSION INH SCH ×2 (07:27→19:40)
[2016-10-14] MEDS: LOSARTAN 50 MG TAB PO SCH (09:16)
[2016-10-14] MEDS: amLODIPine 10 MG TAB PO SCH (09:16)
[2016-10-14] MEDS: risperiDONE 0.5 MG TAB PO SCH ×2 (09:29→20:09)
[2016-10-14] MEDS: MIRALAX *UNIT DOSE* 17GM PACKET PO SCH (09:29)
[2016-10-14] MEDS: ENOXAPARIN 30 MG/0.3 ML SYR (J1650) SC SCH (09:29)
[2016-10-14] MEDS: PANTOPRAZOLE 40MG INJ (PROTONIX) (C9113) IV SCH (09:29)
[2016-10-14] MEDS: FUROSEMIDE 40 MG/4 ML VIAL (J1940) IV SCH (09:29)
[2016-10-14] MEDS: LORATADINE 10 MG TAB PO SCH (09:31)
[2016-10-14] MEDS: SENOKOT S TAB PO SCH ×2 (09:31→20:08)
[2016-10-14] MEDS: SUCRALFATE SUSP 1GM/10ML UD PO SCH ×3 (09:31→20:09)
[2016-10-14] MEDS: AUGMENTIN 875 MG TAB PO SCH ×2 (09:31→20:09)
[2016-10-14] MEDS: POLYVINYL ALCOHOL OPHTH SOLN 15 ML(LIQUITEARS) OU SCH ×4 (09:31→20:09)
[2016-10-14] MEDS: oxyBUTYnin 5 MG TAB PO SCH ×2 (09:31→20:09)
--- NOTE | 2016-10-14 10:22 | IPNPDOC ---
Subjective General Date Seen The patient was seen on 10/14/16. Subjective Chief Complaint/HPI The patient is a 89-year-old female admitted with a reason for visit of Hypoxia Viral Syndrome. Events since last encounter no complaints today , having bowel movements no fever no chills, eating better, did not sleep all night now sleeping in the am . sleep cycles has been reversed. Objective Physical Examination General Exam: Positive: Alert, Cooperative, No Acute Distress Eye Exam: Positive: Conjunctiva & lids normal, EOMI, PERRLA, Negative: Sclera icteric ENT Exam: Positive: Atraumatic, Mucous membr. moist/pink, Pharynx Normal Neck Exam: Positive: Supple, Negative: JVD, thyromegaly Chest Exam: Positive: Rales, Rhonchi Heart Exam: Positive: Normal S1, Normal S2, Rate Normal, Regular Rhythm, Negative: Murmurs, Rubs Telemetry: Positive: Sinus Abdomen Exam: Positive: BS Hypoactive, Soft, Tenderness Extremity Exam: Positive: Normal pulses, Negative: Clubbing, Cyanosis, Edema Assessment /Plan Problems Problems: (1) Abdominal pain Status: Resolved Problem Text: due to constipation , CT abdomen and pelvis negative for any acute abnormality will give aggressive bowel regimen. . (2) Acute bronchitis Status: Acute Problem Text: will change to augmentin to cover for UTI also as dirty urine with persistent low grade fever. , continue with nebulizations. cxr negative for any infiltrates. CT chest no pneumonia showed CHF pattern. (3) Hypoxia Status: Acute Problem Text: will continue with nebulizations, continue oxygen supplementation. (4) Viral syndrome Status: Acute Problem Text: respiratory panel is negative will continue with tylenol for fever or pain. (5) Developmental disability Status: Chronic Problem Text: rom JRC at baseline independently ambulatory with walker, can feed by herself, unable to communicate but can understand and follow commands. (6) Glaucoma Status: Chronic (7) Hypertension Status: Chronic (8) Abnormal urinalysis Status: Acute Problem Text: dirty ua with fever urine culture grew aerococcus urinae will change antibiotic to augmentin. Plan/VTE VTE Prophylaxis Ordered?: Yes VS, I&O, 24H, Fishbone Vital Signs/I&O Vital Signs Date Time Temp Pulse Resp B/P Pulse Ox O2 Delivery O2 Flow Rate FiO2 10/14/16 06:00 97.5 68 19 131/60 91 High Flow Cannula 1.0 I&O- Last 24 Hours up to 6 AM 10/14/16 06:00 Intake Total 1410 ml Output Total 500 ml Balance 910 ml Laboratory Data 24H LABS Laboratory Tests 2 10/14/16 05:52: Anion Gap 6L, White Blood Count 6.4, Red Blood Count 4.17, Hemoglobin 9.0L, Hematocrit 29.8L, Mean Corpuscular Volume 71.4L, Mean Corpuscular Hemoglobin 21.7L, Mean Corpuscular Hemoglobin Concent 30.4L, Red Cell Distribution Width 14.4, Platelet Count 256, Neutrophils (%) (Auto) 60.6, Lymphocytes (%) (Auto) 26.7, Monocytes (%) (Auto) 6.6H, Eosinophils (%) (Auto) 2.4, Basophils (%) (Auto ) 0.5, Neutrophils # (Auto) 3.9, Lymphocytes # (Auto) 1.7, Monocytes # (Auto) 0.4, Eosinophils # (Auto) 0.2, Basophils # (Auto) 0.0, Blood Urea Nitrogen 25H, Creatinine 0.83, Sodium Level 137, Potassium Level 3.8, Chloride Level 98, Carbon Dioxide Level 33H, Calcium Level 8.4L, Glomerular Filtration Rate > 60.0 , Large Unclassified Cells # 0.2, Large Unclassified Cells % 3.2 CBC/BMP Laboratory Tests 10/14/16 05:52 Calcium Level 8.4 L, Red Blood Count 4.17, Mean Corpuscular Volume 71.4 L, Mean Corpuscular Hemoglobin 21.7 L, Mean Corpuscular Hemoglobin Concent 30.4 L, Red Cell Distribution Width 14.4, Neutrophils (%) (Auto) 60.6, Lymphocytes (%) (Auto ) 26.7, Monocytes (%) (Auto) 6.6 H, Eosinophils (%) (Auto) 2.4, Basophils (%) ( Auto) 0.5, Neutrophils # (Auto) 3.9, Lymphocytes # (Auto) 1.7, Monocytes # (Auto ) 0.4, Eosinophils # (Auto) 0.2, Basophils # (Auto) 0.0 Microbiology Microbiology 10/10/16 Blood Culture - Preliminary, Resulted No Growth after 72 hours. All specime... 10/10/16 Blood Culture - Preliminary, Resulted No Growth after 72 hours. All specime... 10/10/16 Respiratory Virus Panel (PCR) (ABHIJIT) - Final, Complete 10/10/16 Influenza Virus Type A Antigen - Final, Complete 10/10/16 Influenza Virus Type B Antigen - Final, Complete 10/11/16 Urine Culture - Final, Complete Aerococcus Urinae JESSIE MORRIS MD Oct 14, 2016 07:50
[2016-10-14 14:00] VITALS: BP 114/54
[2016-10-14] MEDS: LATANOPROST 0.005% OPHTH SOLN 2.5 ML OU SCH (20:09)
[2016-10-14 22:00] VITALS: BP 143/66
[2016-10-15 06:00] VITALS: BP 147/65
[2016-10-15 06:18] LABS: ANION GAP 7 MEQ/L (8-16); BLOOD UREA NITROGEN 26 MG/DL (7-18); CALCIUM LEVEL 8.6 MG/DL (8.8-10.2); CARBON DIOXIDE LEVEL 34 MEQ/L (21-32); CHLORIDE LEVEL 100 MEQ/L (98-107); CREATININE FOR GFR 0.78 MG/DL (0.55-1.02); GLOMERULAR FILTRATION RATE > 60.0 (>32); GLUCOSE, FASTING 123 MG/DL (83-110); POTASSIUM SERUM 3.4 MEQ/L (3.5-5.1); SODIUM LEVEL 141 MEQ/L (136-145)
[2016-10-15 06:23] LABS: BASO % 0.7 % (0.0-1.0); EOS # 0.1 K/mm3 (0.0-0.50); EOS % 1.6 % (0.0-3.0); LARGE UNSTAINED CELL # 0.2 K/mm3 (0.0-0.4); LARGE UNSTAINED CELL % 3.2 % (0.0-4.0); LYMPH # 1.7 K/mm3 (1.5-4.5); LYMPH % 25.2 % (24.0-44.0); MEAN CORPUSCULAR VOLUME 71.1 fl (80.0-96.0); MONO # 0.6 K/mm3 (0.0-0.8); MONO % 9.2 % (0.0-5.0); NEUTROPHILS % 60.1 % (36.0-66.0); PLATELET COUNT, AUTOMATED 305 k/mm3 (150-450); RED CELL DISTRIBUTION WIDTH 14.3 % (11.5-14.5); WHITE BLOOD COUNT 6.6 K/mm3 (4.0-10.0)
[2016-10-15] MEDS ORDERED: POTASSIUM CHLORIDE 10 MEQ SR TABLET PO ONE (07:30)
[2016-10-15] MEDS: IPRATROPIUM 0.5MG/ALBUTEROL 2.5MG INH SOL UD 3ML (DUONEB)(J7620) NEB SCH ×3 (07:35→19:34)
[2016-10-15] MEDS: BUDESONIDE 0.5 MG/2 ML INHALATION SUSPENSION INH SCH ×2 (07:35→19:34)
[2016-10-15] MEDS: FUROSEMIDE 40 MG/4 ML VIAL (J1940) IV SCH (09:00)
[2016-10-15] MEDS: PANTOPRAZOLE 40MG INJ (PROTONIX) (C9113) IV SCH ×2 (09:14→10:16)
[2016-10-15] MEDS: MIRALAX *UNIT DOSE* 17GM PACKET PO SCH (09:14)
[2016-10-15] MEDS: SUCRALFATE SUSP 1GM/10ML UD PO SCH ×3 (09:15→21:40)
[2016-10-15] MEDS: risperiDONE 0.5 MG TAB PO SCH ×2 (09:18→21:40)
[2016-10-15] MEDS: amLODIPine 10 MG TAB PO SCH (09:18)
[2016-10-15] MEDS: LORATADINE 10 MG TAB PO SCH (09:18)
[2016-10-15] MEDS: AUGMENTIN 875 MG TAB PO SCH ×2 (09:18→21:40)
[2016-10-15] MEDS: SENOKOT S TAB PO SCH ×2 (09:18→21:40)
[2016-10-15] MEDS: oxyBUTYnin 5 MG TAB PO SCH ×2 (09:18→21:40)
[2016-10-15] MEDS: LOSARTAN 50 MG TAB PO SCH (09:19)
[2016-10-15] MEDS: POLYVINYL ALCOHOL OPHTH SOLN 15 ML(LIQUITEARS) OU SCH ×4 (09:19→21:40)
[2016-10-15] MEDS: FUROSEMIDE 100 MG/10 ML VIAL (J1940) IV SCH (10:19)
[2016-10-15] MEDS: ENOXAPARIN 30 MG/0.3 ML SYR (J1650) SC SCH (10:41)
--- NOTE | 2016-10-15 12:15 | IPNPDOC ---
Subjective General Date Seen The patient was seen on 10/15/16. Subjective Chief Complaint/HPI The patient is a 89-year-old female admitted with a reason for visit of Hypoxia Viral Syndrome. Events since last encounter pateint still hypoxic in room air to 83%, did not complain of any sob. no fever or chills, no chest pain , no abdominal pain, no nausea or vomiting or diarrhea. Objective Physical Examination General Exam: Positive: Alert, Cooperative, No Acute Distress Eye Exam: Positive: Conjunctiva & lids normal, EOMI, PERRLA, Negative: Sclera icteric ENT Exam: Positive: Atraumatic, Mucous membr. moist/pink, Pharynx Normal Neck Exam: Positive: Supple, Negative: JVD, thyromegaly Chest Exam: Positive: Diminished, Rales Heart Exam: Positive: Normal S1, Normal S2, Rate Normal, Regular Rhythm, Negative: Murmurs, Rubs Telemetry: Positive: Sinus Abdomen Exam: Positive: BS Hypoactive, Soft, Tenderness Extremity Exam: Positive: Normal pulses, Negative: Clubbing, Cyanosis, Edema Assessment /Plan Problems Problems: (1) Hypoxia Status: Acute Problem Text: ? fluid overload will increase lasix. incentive spirometry. will continue with nebulizations, continue oxygen supplementation. (2) Acute bronchitis Status: Acute Problem Text: will change to augmentin to cover for UTI also as dirty urine with persistent low grade fever. , continue with nebulizations. cxr negative for any infiltrates. CT chest no pneumonia showed CHF pattern. (3) Viral syndrome Status: Resolved Problem Text: respiratory panel is negative will continue with tylenol for fever or pain. (4) Abdominal pain Status: Resolved Problem Text: due to constipation , CT abdomen and pelvis negative for any acute abnormality will give aggressive bowel regimen. . (5) Developmental disability Status: Chronic Problem Text: rom JRC at baseline independently ambulatory with walker, can feed by herself, unable to communicate but can understand and follow commands. (6) Glaucoma Status: Chronic (7) Hypertension Status: Chronic (8) Abnormal urinalysis Status: Acute Problem Text: dirty ua with fever urine culture grew aerococcus urinae will change antibiotic to augmentin. Plan/VTE VTE Prophylaxis Ordered?: Yes VS, I&O, 24H, Fishbone Vital Signs/I&O Vital Signs Date Time Temp Pulse Resp B/P Pulse Ox O2 Delivery O2 Flow Rate FiO2 10/15/16 09:19 160/71 10/15/16 09:18 75 10/15/16 06:00 98.1 19 91 High Flow Cannula 1.0 I&O- Last 24 Hours up to 6 AM 10/15/16 06:00 Intake Total 600 ml Output Total 950 ml Balance -350 ml Laboratory Data 24H LABS Laboratory Tests 2 10/15/16 05:28: Anion Gap 7L, White Blood Count 6.6, Red Blood Count 4.39, Hemoglobin 9.7L, Hematocrit 31.2L, Mean Corpuscular Volume 71.1L, Mean Corpuscular Hemoglobin 22.0L, Mean Corpuscular Hemoglobin Concent 31.0L, Red Cell Distribution Width 14.3, Platelet Count 305, Neutrophils (%) (Auto) 60.1, Lymphocytes (%) (Auto) 25.2, Monocytes (%) (Auto) 9.2H, Eosinophils (%) (Auto) 1.6, Basophils (%) (Auto ) 0.7, Neutrophils # (Auto) 4.0, Lymphocytes # (Auto) 1.7, Monocytes # (Auto) 0.6, Eosinophils # (Auto) 0.1, Basophils # (Auto) 0.0, Blood Urea Nitrogen 26H, Creatinine 0.78, Sodium Level 141, Potassium Level 3.4L, Chloride Level 100, Carbon Dioxide Level 34H, Calcium Level 8.6L, Glomerular Filtration Rate > 60.0 , Large Unclassified Cells # 0.2, Large Unclassified Cells % 3.2 CBC/BMP Laboratory Tests 10/15/16 05:28 Calcium Level 8.6 L, Red Blood Count 4.39, Mean Corpuscular Volume 71.1 L, Mean Corpuscular Hemoglobin 22.0 L, Mean Corpuscular Hemoglobin Concent 31.0 L, Red Cell Distribution Width 14.3, Neutrophils (%) (Auto) 60.1, Lymphocytes (%) (Auto ) 25.2, Monocytes (%) (Auto) 9.2 H, Eosinophils (%) (Auto) 1.6, Basophils (%) ( Auto) 0.7, Neutrophils # (Auto) 4.0, Lymphocytes # (Auto) 1.7, Monocytes # (Auto ) 0.6, Eosinophils # (Auto) 0.1, Basophils # (Auto) 0.0 Microbiology Microbiology 10/10/16 Blood Culture - Preliminary, Resulted No Growth after 72 hours. All specime... 10/10/16 Blood Culture - Preliminary, Resulted No Growth after 72 hours. All specime... 10/15/16 Stool Occult Blood (ABHIJIT) - Final, Complete 10/10/16 Respiratory Virus Panel (PCR) (ABHIJIT) - Final, Complete 10/10/16 Influenza Virus Type A Antigen - Final, Complete 10/10/16 Influenza Virus Type B Antigen - Final, Complete 10/11/16 Urine Culture - Final, Complete Aerococcus Urinae JESSIE MORRIS MD Oct 15, 2016 12:15
[2016-10-15 13:30] VITALS: BP 160/71
[2016-10-15 14:00] VITALS: BP 133/61
[2016-10-15] MEDS: LATANOPROST 0.005% OPHTH SOLN 2.5 ML OU SCH (21:40)
[2016-10-15 22:00] VITALS: BP 138/63
[2016-10-16 06:00] VITALS: BP 117/59
[2016-10-16 07:20] LABS: BASO % 0.6 % (0.0-1.0); EOS # 0.1 K/mm3 (0.0-0.50); EOS % 1.7 % (0.0-3.0); LARGE UNSTAINED CELL # 0.2 K/mm3 (0.0-0.4); LARGE UNSTAINED CELL % 2.2 % (0.0-4.0); LYMPH # 1.5 K/mm3 (1.5-4.5); LYMPH % 21.2 % (24.0-44.0); MEAN CORPUSCULAR HEMOGLOBIN 21.3 pg (27.0-33.0); MEAN CORPUSCULAR HGB CONC 29.8 g/dl (32.0-36.5); MEAN CORPUSCULAR VOLUME 71.5 fl (80.0-96.0); MONO # 0.5 K/mm3 (0.0-0.8); NEUTROPHILS # 4.9 K/mm3 (1.8-7.7); NEUTROPHILS % 67.3 % (36.0-66.0); PLATELET COUNT, AUTOMATED 314 k/mm3 (150-450); RED CELL DISTRIBUTION WIDTH 14.5 % (11.5-14.5); WHITE BLOOD COUNT 7.2 K/mm3 (4.0-10.0)
[2016-10-16 07:34] LABS: CALCIUM LEVEL 9.1 MG/DL (8.8-10.2); CREATININE FOR GFR 0.96 MG/DL (0.55-1.02); GLOMERULAR FILTRATION RATE 58.3 (>32); POTASSIUM SERUM 4.9 MEQ/L (3.5-5.1)
[2016-10-16] MEDS: BUDESONIDE 0.5 MG/2 ML INHALATION SUSPENSION INH SCH ×2 (07:35→19:36)
[2016-10-16] MEDS: IPRATROPIUM 0.5MG/ALBUTEROL 2.5MG INH SOL UD 3ML (DUONEB)(J7620) NEB SCH ×3 (07:35→19:39)
[2016-10-16] MEDS: MIRALAX *UNIT DOSE* 17GM PACKET PO SCH (08:58)
[2016-10-16] MEDS: SUCRALFATE SUSP 1GM/10ML UD PO SCH ×3 (08:58→20:33)
[2016-10-16] MEDS: oxyBUTYnin 5 MG TAB PO SCH ×2 (08:58→20:33)
[2016-10-16] MEDS: FUROSEMIDE 100 MG/10 ML VIAL (J1940) IV SCH (08:58)
[2016-10-16] MEDS: AUGMENTIN 875 MG TAB PO SCH ×2 (08:58→20:33)
[2016-10-16] MEDS: LORATADINE 10 MG TAB PO SCH (08:59)
[2016-10-16] MEDS: SENOKOT S TAB PO SCH ×2 (08:59→20:33)
[2016-10-16] MEDS: amLODIPine 10 MG TAB PO SCH (08:59)
[2016-10-16] MEDS: risperiDONE 0.5 MG TAB PO SCH ×2 (08:59→20:33)
[2016-10-16] MEDS: ENOXAPARIN 30 MG/0.3 ML SYR (J1650) SC SCH (08:59)
[2016-10-16] MEDS: LOSARTAN 50 MG TAB PO SCH (08:59)
[2016-10-16] MEDS: PANTOPRAZOLE 40MG INJ (PROTONIX) (C9113) IV SCH (08:59)
[2016-10-16] MEDS: POLYVINYL ALCOHOL OPHTH SOLN 15 ML(LIQUITEARS) OU SCH ×4 (08:59→20:34)
--- NOTE | 2016-10-16 10:54 | IPNPDOC ---
Subjective General Date Seen The patient was seen on 10/16/16. Subjective Chief Complaint/HPI The patient is a 89-year-old female admitted with a reason for visit of Hypoxia Viral Syndrome. Events since last encounter pt seen and examined her oxygen level dropped last night to 84%, no other over night events, pt appears comfortable. Objective Physical Examination General Exam: Positive: Alert, Cooperative, No Acute Distress Eye Exam: Positive: Conjunctiva & lids normal, EOMI, PERRLA, Negative: Sclera icteric ENT Exam: Positive: Atraumatic, Mucous membr. moist/pink, Pharynx Normal Neck Exam: Positive: Supple, Negative: JVD, thyromegaly Chest Exam: Positive: Diminished, Rales Heart Exam: Positive: Murmurs, Normal S1, Normal S2, Rate Normal, Regular Rhythm, Negative: Rubs Telemetry: Positive: Sinus Abdomen Exam: Positive: BS Hypoactive, Soft, Tenderness Extremity Exam: Positive: Normal pulses, Negative: Clubbing, Cyanosis, Edema Assessment /Plan Problems Problems: (1) Hypoxia Status: Acute Response to Treatment: Improving Problem Text: continues to have low oxygen saturations will order nocturnal pulse ox continue Lasix IV. Proventil, Pulmicort, duonebs (2) Abnormal urinalysis Status: Acute Problem Text: dirty ua with fever, pt has been afebrile since 10/12 urine culture grew aerococcus urinae sensitive to augmentin (3) Acute bronchitis Status: Acute Response to Treatment: Improving Problem Text: cxr negative for any infiltrates. CT chest no pneumonia showed CHF pattern. (4) Viral syndrome Status: Resolved Problem Text: respiratory panel is negative will continue with tylenol for fever or pain. (5) Abdominal pain Status: Resolved Problem Text: due to constipation , CT abdomen and pelvis negative for any acute abnormality will give aggressive bowel regimen. . (6) Developmental disability Status: Chronic Problem Text: rom JRC at baseline independently ambulatory with walker, can feed by herself, unable to communicate but can understand and follow commands. (7) Glaucoma Status: Chronic (8) Hypertension Status: Chronic Plan/VTE VTE Prophylaxis Ordered?: Yes VS, I&O, 24H, Fishbone Vital Signs/I&O Vital Signs Date Time Temp Pulse Resp B/P Pulse Ox O2 Delivery O2 Flow Rate FiO2 10/16/16 06:00 97.6 70 18 117/59 90 High Flow Cannula 1.0 I&O- Last 24 Hours up to 6 AM 10/16/16 06:00 Intake Total 1080 ml Output Total 0 ml Balance 1080 ml Laboratory Data 24H LABS Laboratory Tests 2 10/16/16 06:36: Anion Gap 8, White Blood Count 7.2, Red Blood Count 4.56, Hemoglobin 9.7L, Hematocrit 32.6L, Mean Corpuscular Volume 71.5L, Mean Corpuscular Hemoglobin 21.3L, Mean Corpuscular Hemoglobin Concent 29.8L, Red Cell Distribution Width 14.5, Platelet Count 314, Neutrophils (%) (Auto) 67.3H, Lymphocytes (%) (Auto) 21.2L, Monocytes (%) (Auto) 7.0H, Eosinophils (%) (Auto) 1.7, Basophils (%) ( Auto) 0.6, Neutrophils # (Auto) 4.9, Lymphocytes # (Auto) 1.5, Monocytes # (Auto ) 0.5, Eosinophils # (Auto) 0.1, Basophils # (Auto) 0.0, Blood Urea Nitrogen 34H , Creatinine 0.96, Sodium Level 140, Potassium Level 4.9#, Chloride Level 101, Carbon Dioxide Level 31, Calcium Level 9.1, Glomerular Filtration Rate 58.3, Large Unclassified Cells # 0.2, Large Unclassified Cells % 2.2 CBC/BMP Laboratory Tests 10/16/16 06:36 Calcium Level 9.1, Red Blood Count 4.56, Mean Corpuscular Volume 71.5 L, Mean Corpuscular Hemoglobin 21.3 L, Mean Corpuscular Hemoglobin Concent 29.8 L, Red Cell Distribution Width 14.5, Neutrophils (%) (Auto) 67.3 H, Lymphocytes (%) ( Auto) 21.2 L, Monocytes (%) (Auto) 7.0 H, Eosinophils (%) (Auto) 1.7, Basophils (%) (Auto) 0.6, Neutrophils # (Auto) 4.9, Lymphocytes # (Auto) 1.5, Monocytes # (Auto) 0.5, Eosinophils # (Auto) 0.1, Basophils # (Auto) 0.0 Microbiology Microbiology 10/10/16 Blood Culture - Final, Complete NO GROWTH AFTER 5 DAYS 10/10/16 Blood Culture - Final, Complete NO GROWTH AFTER 5 DAYS 10/15/16 Stool Occult Blood (ABHIJIT) - Final, Complete 10/10/16 Respiratory Virus Panel (PCR) (ABHIJIT) - Final, Complete 10/10/16 Influenza Virus Type A Antigen - Final, Complete 10/10/16 Influenza Virus Type B Antigen - Final, Complete 10/11/16 Urine Culture - Final, Complete Aerococcus Urinae MILADY FLORES DO Oct 16, 2016 10:54
[2016-10-16 14:00] VITALS: BP 137/63
[2016-10-16] MEDS: LATANOPROST 0.005% OPHTH SOLN 2.5 ML OU SCH (20:34)
[2016-10-16 21:26] VITALS: O2SAT 85
[2016-10-16 21:30] VITALS: O2SAT 88
[2016-10-16 21:53] VITALS: O2SAT 85
[2016-10-16 22:00] VITALS: BP 144/67; O2SAT 92
[2016-10-16] MEDS: ONDANSETRON 4MG/2ML VIAL (J2405) IV PRN (23:18)
[2016-10-17] MEDS: ONDANSETRON 4MG/2ML VIAL (J2405) IV PRN (05:55)
[2016-10-17 06:00] VITALS: BP 155/69
[2016-10-17 06:52] LABS: BASO # 0.1 K/mm3 (0.0-0.2); BASO % 0.8 % (0.0-1.0); EOS # 0.1 K/mm3 (0.0-0.50); EOS % 1.3 % (0.0-3.0); LARGE UNSTAINED CELL # 0.2 K/mm3 (0.0-0.4); LARGE UNSTAINED CELL % 1.6 % (0.0-4.0); LYMPH # 1.7 K/mm3 (1.5-4.5); LYMPH % 17.2 % (24.0-44.0); MEAN CORPUSCULAR HEMOGLOBIN 21.5 pg (27.0-33.0); MEAN CORPUSCULAR HGB CONC 30.6 g/dl (32.0-36.5); MEAN CORPUSCULAR VOLUME 70.3 fl (80.0-96.0); MONO # 0.8 K/mm3 (0.0-0.8); MONO % 8.4 % (0.0-5.0); NEUTROPHILS # 6.5 K/mm3 (1.8-7.7); NEUTROPHILS % 70.7 % (36.0-66.0); PLATELET COUNT, AUTOMATED 346 k/mm3 (150-450); RED CELL DISTRIBUTION WIDTH 14.9 % (11.5-14.5); WHITE BLOOD COUNT 9.2 K/mm3 (4.0-10.0)
[2016-10-17 06:55] LABS: ANION GAP 6 MEQ/L (8-16); BLOOD UREA NITROGEN 35 MG/DL (7-18); CALCIUM LEVEL 9.4 MG/DL (8.8-10.2); CARBON DIOXIDE LEVEL 33 MEQ/L (21-32); CHLORIDE LEVEL 101 MEQ/L (98-107); CREATININE FOR GFR 0.83 MG/DL (0.55-1.02); GLOMERULAR FILTRATION RATE > 60.0 (>32); GLUCOSE, FASTING 150 MG/DL (83-110); POTASSIUM SERUM 4.2 MEQ/L (3.5-5.1); SODIUM LEVEL 140 MEQ/L (136-145)
[2016-10-17] MEDS: IPRATROPIUM 0.5MG/ALBUTEROL 2.5MG INH SOL UD 3ML (DUONEB)(J7620) NEB SCH ×3 (07:42→19:16)
[2016-10-17] MEDS: BUDESONIDE 0.5 MG/2 ML INHALATION SUSPENSION INH SCH ×2 (07:42→19:16)
--- NOTE | 2016-10-17 09:09 | REP ---
Clinical: Abdominal pain and vomiting. Comparison: 10/11/2016. Findings: Lung bases demonstrate cardiomegaly with chronic pulmonary vascular congestion and subtle bibasilar atelectasis/dependent changes. No erica consolidation or pleural effusion. Liver, spleen, gallbladder, bilateral adrenal glands and kidneys are normal. Involutional changes of the pancreas noted. The enteric system demonstrates moderate fecal stasis and findings to suggest ileus as well as diffuse diverticulosis without evidence for acute diverticulitis. Normal terminal ileum and appendix identified in the right lower quadrant. Pelvis demonstrates distended bladder. Age-appropriate uterus/adnexa noted. No pelvic fluid or ascites. No adenopathy. No intra-abdominal mass lesion. Abdominal aorta is without aneurysm or dissection. Musculoskeletal structures demonstrate age-related degenerative changes. Impression: Findings to suggest cardiomegaly and chronic pulmonary vascular congestion. Fecal stasis and ileus-type pattern. Colonic diverticulosis without acute diverticulitis. No free air. No free fluid. No further acute abdomen/pelvis pathology. Signed by Leonides Elliott MD 10/17/2016 09:01 A
[2016-10-17] MEDS ORDERED: MAGNESIUM CITRATE 300 ML BTL PO ONE (09:45)
[2016-10-17] MEDS: LOSARTAN 50 MG TAB PO SCH (10:00)
[2016-10-17] MEDS: SENOKOT S TAB PO SCH ×2 (10:05→19:59)
[2016-10-17] MEDS: risperiDONE 0.5 MG TAB PO SCH ×2 (10:06→19:59)
[2016-10-17] MEDS: oxyBUTYnin 5 MG TAB PO SCH ×2 (10:06→19:59)
[2016-10-17] MEDS: AUGMENTIN 875 MG TAB PO SCH ×2 (10:06→19:58)
[2016-10-17] MEDS: LORATADINE 10 MG TAB PO SCH (10:06)
[2016-10-17] MEDS: SUCRALFATE SUSP 1GM/10ML UD PO SCH ×3 (10:06→19:58)
[2016-10-17] MEDS: FUROSEMIDE 100 MG/10 ML VIAL (J1940) IV SCH (10:07)
[2016-10-17] MEDS: amLODIPine 10 MG TAB PO SCH (10:07)
[2016-10-17] MEDS: ENOXAPARIN 30 MG/0.3 ML SYR (J1650) SC SCH (10:08)
[2016-10-17] MEDS: MIRALAX *UNIT DOSE* 17GM PACKET PO SCH (10:08)
[2016-10-17] MEDS: PANTOPRAZOLE 40MG INJ (PROTONIX) (C9113) IV SCH (10:08)
[2016-10-17] MEDS: POLYVINYL ALCOHOL OPHTH SOLN 15 ML(LIQUITEARS) OU SCH ×4 (10:09→19:58)
[2016-10-17] MEDS: ONDANSETRON 4MG/2ML VIAL (J2405) IV SCH ×3 (12:24→23:31)
--- NOTE | 2016-10-17 13:22 | IPNPDOC ---
Subjective General Date Seen The patient was seen on 10/17/16. Subjective Chief Complaint/HPI The patient is a 89-year-old female admitted with a reason for visit of Hypoxia Viral Syndrome. Events since last encounter pt seen and examined, was vomiting since last night and had some abd distension , not complaining of anything now, no fevers or chills Objective Physical Examination General Exam: Positive: Alert, Cooperative, No Acute Distress Eye Exam: Positive: Conjunctiva & lids normal, EOMI, PERRLA, Negative: Sclera icteric ENT Exam: Positive: Atraumatic, Mucous membr. moist/pink, Pharynx Normal Neck Exam: Positive: Supple, Negative: JVD, thyromegaly Chest Exam: Positive: Diminished, Rales Heart Exam: Positive: Murmurs, Normal S1, Normal S2, Rate Normal, Regular Rhythm, Negative: Rubs Telemetry: Positive: Sinus Abdomen Exam: Positive: BS Hypoactive, Soft, Tenderness Extremity Exam: Positive: Normal pulses, Negative: Clubbing, Cyanosis, Edema Assessment /Plan Problems Problems: (1) Ileus Status: Acute Problem Text: * will continue NPO (2) Abdominal pain Status: Acute Problem Text: * due to constipation ,repeat CT abdomen and pelvis was still showing fecal stasis and ileus * will start patient on mag citrate, continue Dulcolax, Miralax, Senokot (3) Hypoxia Status: Acute Response to Treatment: Improving Problem Text: continues to have low oxygen saturations nocturnal pulse ox was ordered yesterday but the machine didn't record anything will be repeated tonight (4) Abnormal urinalysis Status: Acute Problem Text: dirty ua with fever, pt has been afebrile since 10/12 urine culture grew aerococcus urinae sensitive to augmentin has been on it since 10/14 (5) Acute bronchitis Status: Acute Response to Treatment: Improving Problem Text: cxr negative for any infiltrates. CT chest no pneumonia showed CHF pattern. (6) Viral syndrome Status: Resolved Problem Text: respiratory panel is negative will continue with tylenol for fever or pain. (7) Developmental disability Status: Chronic Problem Text: rom JRC at baseline independently ambulatory with walker, can feed by herself, unable to communicate but can understand and follow commands. (8) Glaucoma Status: Chronic (9) Hypertension Status: Chronic Plan/VTE VTE Prophylaxis Ordered?: Yes VS, I&O, 24H, Fishbone Vital Signs/I&O Vital Signs Date Time Temp Pulse Resp B/P Pulse Ox O2 Delivery O2 Flow Rate FiO2 10/17/16 10:07 81 149/66 10/17/16 06:00 98.0 19 96 Nasal Cannula 2.0 I&O- Last 24 Hours up to 6 AM 10/17/16 06:00 Intake Total 960 ml Output Total 600 ml Balance 360 ml Laboratory Data 24H LABS Laboratory Tests 2 10/17/16 06:32: Anion Gap 6L, White Blood Count 9.2, Red Blood Count 4.64, Hemoglobin 10.0L, Hematocrit 32.6L, Mean Corpuscular Volume 70.3L, Mean Corpuscular Hemoglobin 21.5L, Mean Corpuscular Hemoglobin Concent 30.6L, Red Cell Distribution Width 14.9H, Platelet Count 346, Neutrophils (%) (Auto) 70.7H, Lymphocytes (%) (Auto) 17.2L, Monocytes (%) (Auto) 8.4H, Eosinophils (%) (Auto) 1.3, Basophils (%) ( Auto) 0.8, Neutrophils # (Auto) 6.5, Lymphocytes # (Auto) 1.7, Monocytes # (Auto ) 0.8, Eosinophils # (Auto) 0.1, Basophils # (Auto) 0.1, Blood Urea Nitrogen 35H , Creatinine 0.83, Sodium Level 140, Potassium Level 4.2, Chloride Level 101, Carbon Dioxide Level 33H, Calcium Level 9.4, Glomerular Filtration Rate > 60.0, Large Unclassified Cells # 0.2, Large Unclassified Cells % 1.6 CBC/BMP Laboratory Tests 10/17/16 06:32 Calcium Level 9.4, Red Blood Count 4.64, Mean Corpuscular Volume 70.3 L, Mean Corpuscular Hemoglobin 21.5 L, Mean Corpuscular Hemoglobin Concent 30.6 L, Red Cell Distribution Width 14.9 H, Neutrophils (%) (Auto) 70.7 H, Lymphocytes (%) ( Auto) 17.2 L, Monocytes (%) (Auto) 8.4 H, Eosinophils (%) (Auto) 1.3, Basophils (%) (Auto) 0.8, Neutrophils # (Auto) 6.5, Lymphocytes # (Auto) 1.7, Monocytes # (Auto) 0.8, Eosinophils # (Auto) 0.1, Basophils # (Auto) 0.1 Microbiology Microbiology 10/10/16 Blood Culture - Final, Complete NO GROWTH AFTER 5 DAYS 10/10/16 Blood Culture - Final, Complete NO GROWTH AFTER 5 DAYS 10/15/16 Stool Occult Blood (ABHIJIT) - Final, Complete 10/10/16 Respiratory Virus Panel (PCR) (ABHIJIT) - Final, Complete 10/10/16 Influenza Virus Type A Antigen - Final, Complete 10/10/16 Influenza Virus Type B Antigen - Final, Complete 10/11/16 Urine Culture - Final, Complete Aerococcus Urinae MILADY FLORES DO Oct 17, 2016 13:22
[2016-10-17] MEDS: LATANOPROST 0.005% OPHTH SOLN 2.5 ML OU SCH (19:58)
[2016-10-17] MEDS: NS 1,000 ML IV SCH (19:58)
[2016-10-17 22:00] VITALS: BP 123/60
[2016-10-18] MEDS: ONDANSETRON 4MG/2ML VIAL (J2405) IV SCH ×4 (05:26→23:15)
[2016-10-18] MEDS: NS 1,000 ML IV SCH (05:26)
[2016-10-18 06:00] VITALS: BP 132/58
[2016-10-18 07:15] LABS: BASO % 0.8 % (0.0-1.0); EOS # 0.1 K/mm3 (0.0-0.50); EOS % 1.5 % (0.0-3.0); LARGE UNSTAINED CELL # 0.2 K/mm3 (0.0-0.4); LARGE UNSTAINED CELL % 3.8 % (0.0-4.0); LYMPH # 1.3 K/mm3 (1.5-4.5); LYMPH % 24.1 % (24.0-44.0); MEAN CORPUSCULAR HEMOGLOBIN 21.6 pg (27.0-33.0); MEAN CORPUSCULAR HGB CONC 30.1 g/dl (32.0-36.5); MEAN CORPUSCULAR VOLUME 71.7 fl (80.0-96.0); MONO # 0.5 K/mm3 (0.0-0.8); MONO % 9.6 % (0.0-5.0); NEUTROPHILS # 3.2 K/mm3 (1.8-7.7); NEUTROPHILS % 60.2 % (36.0-66.0); PLATELET COUNT, AUTOMATED 317 k/mm3 (150-450); RED CELL DISTRIBUTION WIDTH 14.2 % (11.5-14.5); WHITE BLOOD COUNT 5.3 K/mm3 (4.0-10.0)
[2016-10-18 07:25] LABS: ANION GAP 4 MEQ/L (8-16); AST/SGOT 29 U/L (15-37); BLOOD UREA NITROGEN 33 MG/DL (7-18); CALCIUM LEVEL 8.4 MG/DL (8.8-10.2); CARBON DIOXIDE LEVEL 36 MEQ/L (21-32); CHLORIDE LEVEL 106 MEQ/L (98-107); CREATININE FOR GFR 0.82 MG/DL (0.55-1.02); GLOMERULAR FILTRATION RATE > 60.0 (>32); GLUCOSE, FASTING 135 MG/DL (83-110); SODIUM LEVEL 146 MEQ/L (136-145)
[2016-10-18 07:26] LABS: ALBUMIN 2.9 GM/DL (3.2-5.2); ALBUMIN/GLOBULIN RATIO 0.85 (1.00-1.93); ALKALINE PHOSPHATASE 86 U/L (45-117); ALT/SGPT 41 U/L (12-78); BILIRUBIN,TOTAL 0.3 MG/DL (0.2-1.0); TOTAL PROTEIN 6.3 GM/DL (6.4-8.2)
[2016-10-18] MEDS: BUDESONIDE 0.5 MG/2 ML INHALATION SUSPENSION INH SCH ×2 (07:38→19:44)
[2016-10-18] MEDS: IPRATROPIUM 0.5MG/ALBUTEROL 2.5MG INH SOL UD 3ML (DUONEB)(J7620) NEB SCH ×3 (07:38→19:44)
[2016-10-18] MEDS: FUROSEMIDE 100 MG/10 ML VIAL (J1940) IV SCH (08:40)
[2016-10-18] MEDS: MIRALAX *UNIT DOSE* 17GM PACKET PO SCH (08:41)
[2016-10-18] MEDS: ENOXAPARIN 30 MG/0.3 ML SYR (J1650) SC SCH (08:41)
[2016-10-18] MEDS: oxyBUTYnin 5 MG TAB PO SCH ×2 (08:41→20:13)
[2016-10-18] MEDS: SUCRALFATE SUSP 1GM/10ML UD PO SCH ×3 (08:41→20:13)
[2016-10-18] MEDS: AUGMENTIN 875 MG TAB PO SCH ×2 (08:41→20:13)
[2016-10-18] MEDS: PANTOPRAZOLE 40MG INJ (PROTONIX) (C9113) IV SCH (08:41)
[2016-10-18] MEDS: risperiDONE 0.5 MG TAB PO SCH ×2 (08:41→20:13)
[2016-10-18] MEDS: SENOKOT S TAB PO SCH ×2 (08:41→20:13)
[2016-10-18] MEDS: POLYVINYL ALCOHOL OPHTH SOLN 15 ML(LIQUITEARS) OU SCH ×4 (08:42→20:14)
[2016-10-18] MEDS: LORATADINE 10 MG TAB PO SCH (08:42)
[2016-10-18] MEDS: LOSARTAN 50 MG TAB PO SCH (08:45)
[2016-10-18] MEDS: amLODIPine 10 MG TAB PO SCH (08:45)
--- NOTE | 2016-10-18 13:10 | IPNPDOC ---
Subjective Date Seen The patient was seen on 10/18/16. Subjective Chief Complaint/HPI The patient is a 89-year-old female admitted with a reason for visit of Hypoxia Viral Syndrome. General: Reports: ROS Unobtainable Objective Physical Examination General Exam: Positive: Alert, Cooperative, No Acute Distress Eye Exam: Positive: Conjunctiva & lids normal, EOMI, PERRLA, Negative: Sclera icteric ENT Exam: Positive: Atraumatic, Mucous membr. moist/pink, Pharynx Normal Neck Exam: Positive: Supple, Negative: JVD, thyromegaly Chest Exam: Positive: Diminished, Rales Heart Exam: Positive: Murmurs, Normal S1, Normal S2, Rate Normal, Regular Rhythm, Negative: Rubs Telemetry: Positive: Sinus Abdomen Exam: Positive: BS Hypoactive, Soft Extremity Exam: Positive: Normal pulses, Negative: Clubbing, Cyanosis, Edema Assessment /Plan Problems (1) Ileus Status: Acute Problem Text: * pt had a large bowel movement yesterday, * will advance diet to liquid diet * d/c IV fluids (2) Abdominal pain Status: Acute Response to Treatment: Improving Problem Text: * due to constipation ,repeat CT abdomen and pelvis was still showing fecal stasis and ileus * pt had a good bm yesterday 10/17 (3) Hypoxia Status: Acute Response to Treatment: Improving Problem Text: continues to have low oxygen saturations nocturnal pulse ox was ordered results pending (4) Abnormal urinalysis Status: Acute Problem Text: dirty ua with fever, pt has been afebrile since 10/12 urine culture grew aerococcus urinae sensitive to augmentin has been on it since 10/14 (5) Acute bronchitis Status: Acute Response to Treatment: Improving Problem Text: cxr negative for any infiltrates. CT chest no pneumonia showed CHF pattern. (6) Viral syndrome Status: Resolved Problem Text: respiratory panel is negative will continue with tylenol for fever or pain. (7) Developmental disability Status: Chronic Problem Text: rom JRC at baseline independently ambulatory with walker, can feed by herself, unable to communicate but can understand and follow commands. (8) Glaucoma Status: Chronic (9) Hypertension Status: Chronic Plan/VTE VTE Prophylaxis Ordered?: Yes VS, I&O, 24H, Fishbone Vital Signs/I&O Vital Signs Date Time Temp Pulse Resp B/P Pulse Ox O2 Delivery O2 Flow Rate FiO2 2/16/17 08:45 130/60 10/18/16 06:00 96.7 68 16 91 Nasal Cannula 2.0 I&O- Last 24 Hours up to 6 AM 10/18/16 05:59 Intake Total 400 ml Output Total 0 ml Balance 400 ml Laboratory Data 24H LABS Laboratory Tests 2 10/18/16 06:42: Blood Urea Nitrogen 33H, Creatinine 0.82, Sodium Level 146H, Potassium Level 4.0 , Chloride Level 106, Carbon Dioxide Level 36H, Calcium Level 8.4L, Aspartate Amino Transf (AST/SGOT) 29, Alanine Aminotransferase (ALT/SGPT) 41, Alkaline Phosphatase 86, Total Bilirubin 0.3, Total Protein 6.3L, Albumin 2.9L, Albumin/ Globulin Ratio 0.85L, Anion Gap 4L, White Blood Count 5.3, Red Blood Count 4.25 , Hemoglobin 9.2L, Hematocrit 30.4L, Mean Corpuscular Volume 71.7L, Mean Corpuscular Hemoglobin 21.6L, Mean Corpuscular Hemoglobin Concent 30.1L, Red Cell Distribution Width 14.2, Platelet Count 317, Neutrophils (%) (Auto) 60.2, Lymphocytes (%) (Auto) 24.1, Monocytes (%) (Auto) 9.6H, Eosinophils (%) (Auto) 1.5, Basophils (%) (Auto) 0.8, Neutrophils # (Auto) 3.2, Lymphocytes # (Auto) 1.3L, Monocytes # (Auto) 0.5, Eosinophils # (Auto) 0.1, Basophils # (Auto) 0.0, Glomerular Filtration Rate > 60.0, Large Unclassified Cells # 0.2, Large Unclassified Cells % 3.8 CBC/BMP Laboratory Tests 10/18/16 06:42 Calcium Level 8.4 L, Aspartate Amino Transf (AST/SGOT) 29, Alanine Aminotransferase (ALT/SGPT) 41, Alkaline Phosphatase 86, Total Bilirubin 0.3, Total Protein 6.3 L, Albumin 2.9 L, Red Blood Count 4.25, Mean Corpuscular Volume 71.7 L, Mean Corpuscular Hemoglobin 21.6 L, Mean Corpuscular Hemoglobin Concent 30.1 L, Red Cell Distribution Width 14.2, Neutrophils (%) (Auto) 60.2, Lymphocytes (%) (Auto) 24.1, Monocytes (%) (Auto) 9.6 H, Eosinophils (%) (Auto) 1.5, Basophils (%) (Auto) 0.8, Neutrophils # (Auto) 3.2, Lymphocytes # (Auto) 1.3 L, Monocytes # (Auto) 0.5, Eosinophils # (Auto) 0.1, Basophils # (Auto) 0.0 Microbiology Microbiology 10/10/16 Blood Culture - Final, Complete NO GROWTH AFTER 5 DAYS 10/10/16 Blood Culture - Final, Complete NO GROWTH AFTER 5 DAYS 10/15/16 Stool Occult Blood (ABHIJIT) - Final, Complete 10/10/16 Respiratory Virus Panel (PCR) (ABHIJIT) - Final, Complete 10/10/16 Influenza Virus Type A Antigen - Final, Complete 10/10/16 Influenza Virus Type B Antigen - Final, Complete 10/11/16 Urine Culture - Final, Complete Aerococcus Urinae MILADY FLORES DO Oct 18, 2016 13:09
[2016-10-18 14:00] VITALS: BP 148/85
[2016-10-18] MEDS: LATANOPROST 0.005% OPHTH SOLN 2.5 ML OU SCH (20:14)
[2016-10-18 22:00] VITALS: BP 121/56
[2016-10-19] MEDS: ONDANSETRON 4MG/2ML VIAL (J2405) IV SCH ×4 (05:16→23:34)
[2016-10-19 06:00] VITALS: BP 140/68
[2016-10-19 06:29] LABS: BASO % 0.7 % (0.0-1.0); EOS # 0.1 K/mm3 (0.0-0.50); EOS % 2.1 % (0.0-3.0); LARGE UNSTAINED CELL # 0.2 K/mm3 (0.0-0.4); LARGE UNSTAINED CELL % 3.3 % (0.0-4.0); LYMPH # 1.5 K/mm3 (1.5-4.5); LYMPH % 23.6 % (24.0-44.0); MEAN CORPUSCULAR HGB CONC 30.3 g/dl (32.0-36.5); MEAN CORPUSCULAR VOLUME 72.6 fl (80.0-96.0); MONO # 0.4 K/mm3 (0.0-0.8); MONO % 6.4 % (0.0-5.0); NEUTROPHILS % 63.9 % (36.0-66.0); PLATELET COUNT, AUTOMATED 282 k/mm3 (150-450); RED CELL DISTRIBUTION WIDTH 14.4 % (11.5-14.5); WHITE BLOOD COUNT 6.2 K/mm3 (4.0-10.0)
[2016-10-19 06:35] LABS: ALBUMIN 2.9 GM/DL (3.2-5.2); ALBUMIN/GLOBULIN RATIO 0.85 (1.00-1.93); ALKALINE PHOSPHATASE 84 U/L (45-117); ALT/SGPT 37 U/L (12-78); ANION GAP 8 MEQ/L (8-16); AST/SGOT 24 U/L (15-37); BILIRUBIN,TOTAL 0.3 MG/DL (0.2-1.0); BLOOD UREA NITROGEN 27 MG/DL (7-18); CALCIUM LEVEL 8.8 MG/DL (8.8-10.2); CARBON DIOXIDE LEVEL 35 MEQ/L (21-32); CHLORIDE LEVEL 104 MEQ/L (98-107); CREATININE FOR GFR 0.89 MG/DL (0.55-1.02); GLOMERULAR FILTRATION RATE > 60.0 (>32); GLUCOSE, FASTING 123 MG/DL (83-110); POTASSIUM SERUM 3.7 MEQ/L (3.5-5.1); SODIUM LEVEL 147 MEQ/L (136-145); TOTAL PROTEIN 6.3 GM/DL (6.4-8.2)
[2016-10-19] MEDS: BUDESONIDE 0.5 MG/2 ML INHALATION SUSPENSION INH SCH ×2 (07:11→19:37)
[2016-10-19] MEDS: IPRATROPIUM 0.5MG/ALBUTEROL 2.5MG INH SOL UD 3ML (DUONEB)(J7620) NEB SCH ×3 (07:11→19:37)
[2016-10-19] MEDS: SUCRALFATE SUSP 1GM/10ML UD PO SCH ×3 (08:05→20:43)
[2016-10-19] MEDS: MIRALAX *UNIT DOSE* 17GM PACKET PO SCH (08:05)
[2016-10-19] MEDS: ENOXAPARIN 30 MG/0.3 ML SYR (J1650) SC SCH (08:05)
[2016-10-19] MEDS: PANTOPRAZOLE 40MG INJ (PROTONIX) (C9113) IV SCH (08:05)
[2016-10-19] MEDS: LORATADINE 10 MG TAB PO SCH (08:06)
[2016-10-19] MEDS: AUGMENTIN 875 MG TAB PO SCH ×2 (08:06→20:43)
[2016-10-19] MEDS: amLODIPine 10 MG TAB PO SCH (08:06)
[2016-10-19] MEDS: oxyBUTYnin 5 MG TAB PO SCH ×2 (08:06→20:44)
[2016-10-19] MEDS: LOSARTAN 50 MG TAB PO SCH (08:06)
[2016-10-19] MEDS: SENOKOT S TAB PO SCH ×2 (08:06→20:43)
[2016-10-19] MEDS: FUROSEMIDE 100 MG/10 ML VIAL (J1940) IV SCH (08:06)
[2016-10-19] MEDS: risperiDONE 0.5 MG TAB PO SCH ×2 (08:06→20:43)
[2016-10-19] MEDS: POLYVINYL ALCOHOL OPHTH SOLN 15 ML(LIQUITEARS) OU SCH ×4 (08:07→20:43)
--- NOTE | 2016-10-19 11:00 | NOCOX ---
DATE OF PROCEDURE: ORDERED BY: Dr. Nieves Pruitt Nocturnal recording oximetry was initiated on room air. Baseline saturation 97%. Shortly thereafter, the saturation felt to a low of 71%. Oxygen was added at 2 liters per minute via nasal cannula. Saturations came up. Lowest oxygen saturation on 2 liters was 91%. There was no significant pattern identified. IMPRESSION: Abnormal nocturnal recording oximetry on room air with desaturations to 71%. Saturations were in acceptable range 91% or better on 2 liters.
--- NOTE | 2016-10-19 12:26 | IPNPDOC ---
Subjective Date Seen The patient was seen on 10/19/16. Subjective Chief Complaint/HPI The patient is a 89-year-old female admitted with a reason for visit of Hypoxia Viral Syndrome. Events since last encounter pt seen and examined, no overnight events Objective Physical Examination General Exam: Positive: Alert, Cooperative, No Acute Distress Eye Exam: Positive: Conjunctiva & lids normal, EOMI, PERRLA, Negative: Sclera icteric ENT Exam: Positive: Atraumatic, Mucous membr. moist/pink, Pharynx Normal Neck Exam: Positive: Supple, Negative: JVD, thyromegaly Chest Exam: Positive: Diminished, Rales Heart Exam: Positive: Murmurs, Normal S1, Normal S2, Rate Normal, Regular Rhythm, Negative: Rubs Telemetry: Positive: Sinus Abdomen Exam: Positive: BS Hypoactive, Soft Extremity Exam: Positive: Normal pulses, Negative: Clubbing, Cyanosis, Edema Assessment /Plan Problems (1) Ileus Status: Acute Problem Text: * pt had a large bowel movement yesterday, * continue to advance diet * will d/c in 24-48 hours (2) Abdominal pain Status: Acute Response to Treatment: Improving Problem Text: * due to constipation ,repeat CT abdomen and pelvis was still showing fecal stasis and ileus * resolved (3) Hypoxia Status: Acute Problem Text: continues to have low oxygen saturations nocturnal pulse ox was ordered results came back and pt needs to be on oxygen at home at bedtime (4) Abnormal urinalysis Status: Acute Problem Text: dirty ua with fever, pt has been afebrile since 10/12 urine culture grew aerococcus urinae sensitive to augmentin has been on it since 10/14 will d/c in am (5) Acute bronchitis Status: Acute Response to Treatment: Improving Problem Text: cxr negative for any infiltrates. CT chest no pneumonia showed CHF pattern. (6) Viral syndrome Status: Resolved Problem Text: respiratory panel is negative will continue with tylenol for fever or pain. (7) Developmental disability Status: Chronic Problem Text: room [facility] at baseline independently ambulatory with walker, can feed by herself, unable to communicate but can understand and follow commands. (8) Glaucoma Status: Chronic (9) Hypertension Status: Chronic Plan/VTE VTE Prophylaxis Ordered?: Yes VS, I&O, 24H, Fishbone Vital Signs/I&O Vital Signs Date Time Temp Pulse Resp B/P Pulse Ox O2 Delivery O2 Flow Rate FiO2 10/19/16 09:00 Nasal Cannula 1.0 10/19/16 06:00 98.7 69 16 140/68 91 I&O- Last 24 Hours up to 6 AM 10/19/16 06:00 Intake Total 3600 ml Output Total 0 ml Balance 3600 ml Laboratory Data 24H LABS Laboratory Tests 2 10/19/16 05:45: Blood Urea Nitrogen 27H, Creatinine 0.89, Sodium Level 147H, Potassium Level 3.7 , Chloride Level 104, Carbon Dioxide Level 35H, Calcium Level 8.8, Aspartate Amino Transf (AST/SGOT) 24, Alanine Aminotransferase (ALT/SGPT) 37, Alkaline Phosphatase 84, Total Bilirubin 0.3, Total Protein 6.3L, Albumin 2.9L, Albumin/ Globulin Ratio 0.85L, Anion Gap 8, White Blood Count 6.2, Red Blood Count 4.00, Hemoglobin 8.8L, Hematocrit 29.0L, Mean Corpuscular Volume 72.6L, Mean Corpuscular Hemoglobin 22.0L, Mean Corpuscular Hemoglobin Concent 30.3L, Red Cell Distribution Width 14.4, Platelet Count 282, Neutrophils (%) (Auto) 63.9, Lymphocytes (%) (Auto) 23.6L, Monocytes (%) (Auto) 6.4H, Eosinophils (%) (Auto) 2.1, Basophils (%) (Auto) 0.7, Neutrophils # (Auto) 4.0, Lymphocytes # (Auto) 1.5, Monocytes # (Auto) 0.4, Eosinophils # (Auto) 0.1, Basophils # (Auto) 0.0, Glomerular Filtration Rate > 60.0, Large Unclassified Cells # 0.2, Large Unclassified Cells % 3.3 CBC/BMP Laboratory Tests 10/19/16 05:45 Calcium Level 8.8, Aspartate Amino Transf (AST/SGOT) 24, Alanine Aminotransferase (ALT/SGPT) 37, Alkaline Phosphatase 84, Total Bilirubin 0.3, Total Protein 6.3 L, Albumin 2.9 L, Red Blood Count 4.00, Mean Corpuscular Volume 72.6 L, Mean Corpuscular Hemoglobin 22.0 L, Mean Corpuscular Hemoglobin Concent 30.3 L, Red Cell Distribution Width 14.4, Neutrophils (%) (Auto) 63.9, Lymphocytes (%) (Auto) 23.6 L, Monocytes (%) (Auto) 6.4 H, Eosinophils (%) (Auto ) 2.1, Basophils (%) (Auto) 0.7, Neutrophils # (Auto) 4.0, Lymphocytes # (Auto) 1.5, Monocytes # (Auto) 0.4, Eosinophils # (Auto) 0.1, Basophils # (Auto) 0.0 Microbiology Microbiology 10/10/16 Blood Culture - Final, Complete NO GROWTH AFTER 5 DAYS 10/10/16 Blood Culture - Final, Complete NO GROWTH AFTER 5 DAYS 10/15/16 Stool Occult Blood (ABHIJIT) - Final, Complete 10/10/16 Respiratory Virus Panel (PCR) (ABHIJIT) - Final, Complete 10/10/16 Influenza Virus Type A Antigen - Final, Complete 10/10/16 Influenza Virus Type B Antigen - Final, Complete 10/11/16 Urine Culture - Final, Complete Aerococcus Urinae MILADY FLORES DO Oct 19, 2016 12:26
[2016-10-19 14:00] VITALS: BP 152/78
[2016-10-19 19:39] VITALS: O2SAT 92
[2016-10-19] MEDS: LATANOPROST 0.005% OPHTH SOLN 2.5 ML OU SCH (20:44)
[2016-10-20] MEDS: ONDANSETRON 4MG/2ML VIAL (J2405) IV SCH ×4 (05:27→23:46)
[2016-10-20 06:12] LABS: ALBUMIN 2.8 GM/DL (3.2-5.2); ALBUMIN/GLOBULIN RATIO 0.82 (1.00-1.93); ALKALINE PHOSPHATASE 81 U/L (45-117); ALT/SGPT 32 U/L (12-78); ANION GAP 6 MEQ/L (8-16); AST/SGOT 22 U/L (15-37); BILIRUBIN,TOTAL 0.4 MG/DL (0.2-1.0); BLOOD UREA NITROGEN 29 MG/DL (7-18); CALCIUM LEVEL 8.7 MG/DL (8.8-10.2); CARBON DIOXIDE LEVEL 35 MEQ/L (21-32); CHLORIDE LEVEL 100 MEQ/L (98-107); CREATININE FOR GFR 0.85 MG/DL (0.55-1.02); GLOMERULAR FILTRATION RATE > 60.0 (>32); GLUCOSE, FASTING 128 MG/DL (83-110); POTASSIUM SERUM 3.8 MEQ/L (3.5-5.1); SODIUM LEVEL 141 MEQ/L (136-145); TOTAL PROTEIN 6.2 GM/DL (6.4-8.2)
[2016-10-20 06:13] LABS: BASO % 0.6 % (0.0-1.0); EOS # 0.1 K/mm3 (0.0-0.50); EOS % 2.4 % (0.0-3.0); LARGE UNSTAINED CELL # 0.2 K/mm3 (0.0-0.4); LARGE UNSTAINED CELL % 2.7 % (0.0-4.0); LYMPH # 1.6 K/mm3 (1.5-4.5); LYMPH % 26.1 % (24.0-44.0); MEAN CORPUSCULAR HEMOGLOBIN 21.9 pg (27.0-33.0); MEAN CORPUSCULAR HGB CONC 30.7 g/dl (32.0-36.5); MEAN CORPUSCULAR VOLUME 71.5 fl (80.0-96.0); MONO # 0.6 K/mm3 (0.0-0.8); MONO % 10.2 % (0.0-5.0); NEUTROPHILS # 3.2 K/mm3 (1.8-7.7); NEUTROPHILS % 58.1 % (36.0-66.0); PLATELET COUNT, AUTOMATED 302 k/mm3 (150-450); RED CELL DISTRIBUTION WIDTH 14.5 % (11.5-14.5); WHITE BLOOD COUNT 5.5 K/mm3 (4.0-10.0)
[2016-10-20 06:25] VITALS: BP 151/69
[2016-10-20] MEDS: BUDESONIDE 0.5 MG/2 ML INHALATION SUSPENSION INH SCH ×2 (07:45→19:31)
[2016-10-20] MEDS: IPRATROPIUM 0.5MG/ALBUTEROL 2.5MG INH SOL UD 3ML (DUONEB)(J7620) NEB SCH ×3 (07:46→19:31)
[2016-10-20] MEDS: MIRALAX *UNIT DOSE* 17GM PACKET PO SCH (10:18)
[2016-10-20] MEDS: LOSARTAN 50 MG TAB PO SCH (10:18)
[2016-10-20] MEDS: risperiDONE 0.5 MG TAB PO SCH ×2 (10:18→20:27)
[2016-10-20] MEDS: SUCRALFATE SUSP 1GM/10ML UD PO SCH ×3 (10:18→20:27)
[2016-10-20] MEDS: amLODIPine 10 MG TAB PO SCH (10:19)
[2016-10-20] MEDS: PANTOPRAZOLE 40MG INJ (PROTONIX) (C9113) IV SCH (10:19)
[2016-10-20] MEDS: LORATADINE 10 MG TAB PO SCH (10:19)
[2016-10-20] MEDS: oxyBUTYnin 5 MG TAB PO SCH ×2 (10:19→20:27)
[2016-10-20] MEDS: SENOKOT S TAB PO SCH ×2 (10:19→20:27)
[2016-10-20] MEDS: POLYVINYL ALCOHOL OPHTH SOLN 15 ML(LIQUITEARS) OU SCH ×4 (10:20→20:28)
[2016-10-20] MEDS: ENOXAPARIN 30 MG/0.3 ML SYR (J1650) SC SCH (10:20)
[2016-10-20] MEDS: FUROSEMIDE 100 MG/10 ML VIAL (J1940) IV SCH (10:20)
--- NOTE | 2016-10-20 13:00 | IPNPDOC ---
Subjective Date Seen The patient was seen on 10/20/16. Subjective Chief Complaint/HPI The patient is a 89-year-old female admitted with a reason for visit of Hypoxia Viral Syndrome. General: Reports: ROS Unobtainable Objective Physical Examination General Exam: Positive: Alert, Cooperative, No Acute Distress Eye Exam: Positive: Conjunctiva & lids normal, EOMI, PERRLA, Negative: Sclera icteric ENT Exam: Positive: Atraumatic, Mucous membr. moist/pink, Pharynx Normal Neck Exam: Positive: Supple, Negative: JVD, thyromegaly Chest Exam: Positive: Diminished, Rales Heart Exam: Positive: Murmurs, Normal S1, Normal S2, Rate Normal, Regular Rhythm, Negative: Rubs Telemetry: Positive: Sinus Abdomen Exam: Positive: BS Hypoactive, Soft Extremity Exam: Positive: Normal pulses, Negative: Clubbing, Cyanosis, Edema Assessment /Plan Problems (1) Ileus Status: Resolved Problem Text: * pt had a large bowel movement yesterday, * continue to advance diet * will d/c in 24-48 hours (2) Abdominal pain Status: Resolved Response to Treatment: Improving Problem Text: * due to constipation ,repeat CT abdomen and pelvis was still showing fecal stasis and ileus * resolved (3) Hypoxia Status: Resolved Problem Text: continues to have low oxygen saturations nocturnal pulse ox was ordered results came back and pt needs to be on oxygen at home at bedtime (4) Abnormal urinalysis Status: Acute Problem Text: dirty ua with fever, pt has been afebrile since 10/12 urine culture grew aerococcus urinae sensitive to augmentin has been on it since 10/14 will d/c (5) Acute bronchitis Status: Acute Response to Treatment: Improving Problem Text: cxr negative for any infiltrates. CT chest no pneumonia showed CHF pattern. (6) Viral syndrome Status: Resolved Problem Text: respiratory panel is negative will continue with tylenol for fever or pain. (7) Developmental disability Status: Chronic Problem Text: room [facility] at baseline independently ambulatory with walker, can feed by herself, unable to communicate but can understand and follow commands. (8) Glaucoma Status: Chronic (9) Hypertension Status: Chronic Plan/VTE VTE Prophylaxis Ordered?: Yes VS, I&O, 24H, Fishbone Vital Signs/I&O Vital Signs Date Time Temp Pulse Resp B/P Pulse Ox O2 Delivery O2 Flow Rate FiO2 10/20/16 10:19 72 10/20/16 10:18 151/69 10/20/16 06:25 97.6 18 92 Nasal Cannula 2.0 I&O- Last 24 Hours up to 6 AM 10/20/16 06:00 Intake Total 1440 ml Output Total 0 ml Balance 1440 ml Laboratory Data 24H LABS Laboratory Tests 2 10/20/16 05:39: Blood Urea Nitrogen 29H, Creatinine 0.85, Sodium Level 141, Potassium Level 3.8 , Chloride Level 100, Carbon Dioxide Level 35H, Calcium Level 8.7L, Aspartate Amino Transf (AST/SGOT) 22, Alanine Aminotransferase (ALT/SGPT) 32, Alkaline Phosphatase 81, Total Bilirubin 0.4, Total Protein 6.2L, Albumin 2.8L, Albumin/ Globulin Ratio 0.82L, Anion Gap 6L, White Blood Count 5.5, Red Blood Count 4.14 , Hemoglobin 9.1L, Hematocrit 29.6L, Mean Corpuscular Volume 71.5L, Mean Corpuscular Hemoglobin 21.9L, Mean Corpuscular Hemoglobin Concent 30.7L, Red Cell Distribution Width 14.5, Platelet Count 302, Neutrophils (%) (Auto) 58.1, Lymphocytes (%) (Auto) 26.1, Monocytes (%) (Auto) 10.2H, Eosinophils (%) (Auto) 2.4, Basophils (%) (Auto) 0.6, Neutrophils # (Auto) 3.2, Lymphocytes # (Auto) 1.6, Monocytes # (Auto) 0.6, Eosinophils # (Auto) 0.1, Basophils # (Auto) 0.0, Glomerular Filtration Rate > 60.0, Large Unclassified Cells # 0.2, Large Unclassified Cells % 2.7 CBC/BMP Laboratory Tests 10/20/16 05:39 Calcium Level 8.7 L, Aspartate Amino Transf (AST/SGOT) 22, Alanine Aminotransferase (ALT/SGPT) 32, Alkaline Phosphatase 81, Total Bilirubin 0.4, Total Protein 6.2 L, Albumin 2.8 L, Red Blood Count 4.14, Mean Corpuscular Volume 71.5 L, Mean Corpuscular Hemoglobin 21.9 L, Mean Corpuscular Hemoglobin Concent 30.7 L, Red Cell Distribution Width 14.5, Neutrophils (%) (Auto) 58.1, Lymphocytes (%) (Auto) 26.1, Monocytes (%) (Auto) 10.2 H, Eosinophils (%) (Auto ) 2.4, Basophils (%) (Auto) 0.6, Neutrophils # (Auto) 3.2, Lymphocytes # (Auto) 1.6, Monocytes # (Auto) 0.6, Eosinophils # (Auto) 0.1, Basophils # (Auto) 0.0 Microbiology Microbiology 10/10/16 Blood Culture - Final, Complete NO GROWTH AFTER 5 DAYS 10/10/16 Blood Culture - Final, Complete NO GROWTH AFTER 5 DAYS 10/15/16 Stool Occult Blood (ABHIJIT) - Final, Complete 10/10/16 Respiratory Virus Panel (PCR) (ABHIJIT) - Final, Complete 10/10/16 Influenza Virus Type A Antigen - Final, Complete 10/10/16 Influenza Virus Type B Antigen - Final, Complete 10/11/16 Urine Culture - Final, Complete Aerococcus Urinae MILADY FLORES DO Oct 20, 2016 12:59
[2016-10-20 14:00] VITALS: BP 110/56
[2016-10-20] MEDS: ACETAMINOPHEN 500 MG TAB PO PRN (20:27)
[2016-10-20] MEDS: LATANOPROST 0.005% OPHTH SOLN 2.5 ML OU SCH (20:28)
[2016-10-20 22:00] VITALS: BP 117/55
[2016-10-21] MEDS: ONDANSETRON 4MG/2ML VIAL (J2405) IV SCH (05:20)
[2016-10-21 06:00] VITALS: BP 120/57
[2016-10-21 06:24] LABS: ALBUMIN 2.9 GM/DL (3.2-5.2); ALBUMIN/GLOBULIN RATIO 0.88 (1.00-1.93); BILIRUBIN,TOTAL 0.4 MG/DL (0.2-1.0); CALCIUM LEVEL 9.2 MG/DL (8.8-10.2); CREATININE FOR GFR 1.1 MG/DL (0.55-1.02); GLOMERULAR FILTRATION RATE 49.8 (>32); POTASSIUM SERUM 3.6 MEQ/L (3.5-5.1); TOTAL PROTEIN 6.2 GM/DL (6.4-8.2)
[2016-10-21 06:27] LABS: MEAN CORPUSCULAR HEMOGLOBIN 22.3 pg (27.0-33.0); MEAN CORPUSCULAR HGB CONC 31.6 g/dl (32.0-36.5); MEAN CORPUSCULAR VOLUME 70.7 fl (80.0-96.0); PLATELET COUNT, AUTOMATED 319 k/mm3 (150-450); RED CELL DISTRIBUTION WIDTH 14.8 % (11.5-14.5); WHITE BLOOD COUNT 6.9 K/mm3 (4.0-10.0)
[2016-10-21 06:52] LABS: BASOPHILS 1 % (0-4); EOSINOPHILS 2 % (0-5); MICROCYTOSIS 2+
[2016-10-21 06:53] LABS: HYPOCHROMASIA 3+
[2016-10-21] MEDS: IPRATROPIUM 0.5MG/ALBUTEROL 2.5MG INH SOL UD 3ML (DUONEB)(J7620) NEB SCH ×3 (07:55→20:22)
[2016-10-21] MEDS: BUDESONIDE 0.5 MG/2 ML INHALATION SUSPENSION INH SCH ×2 (07:55→20:22)
[2016-10-21] MEDS ORDERED: ONDANSETRON 4MG/2ML VIAL (J2405) IV PRN (08:52)
[2016-10-21] MEDS: amLODIPine 10 MG TAB PO SCH (09:31)
[2016-10-21] MEDS: SUCRALFATE SUSP 1GM/10ML UD PO SCH ×3 (09:32→20:32)
[2016-10-21] MEDS: LOSARTAN 50 MG TAB PO SCH (09:32)
[2016-10-21] MEDS: PANTOPRAZOLE 40MG INJ (PROTONIX) (C9113) IV SCH (09:32)
[2016-10-21] MEDS: LORATADINE 10 MG TAB PO SCH (09:33)
[2016-10-21] MEDS: SENOKOT S TAB PO SCH ×2 (09:33→20:32)
[2016-10-21] MEDS: risperiDONE 0.5 MG TAB PO SCH ×2 (09:33→20:32)
[2016-10-21] MEDS: FUROSEMIDE 100 MG/10 ML VIAL (J1940) IV SCH (09:33)
[2016-10-21] MEDS: oxyBUTYnin 5 MG TAB PO SCH ×2 (09:34→20:32)
[2016-10-21] MEDS: ENOXAPARIN 30 MG/0.3 ML SYR (J1650) SC SCH (09:35)
[2016-10-21] MEDS: MIRALAX *UNIT DOSE* 17GM PACKET PO SCH (09:35)
[2016-10-21] MEDS: POLYVINYL ALCOHOL OPHTH SOLN 15 ML(LIQUITEARS) OU SCH ×4 (09:35→20:32)
--- NOTE | 2016-10-21 09:42 | REP ---
Clinical: Hypoxia Comparison: 10/10/2016. Findings: Examination is limited by technique and underpenetration. Stable cardiomegaly and hiatal hernia noted. Pulmonary vascular congestion along with bilateral lower lobe infiltrates cannot be excluded. Impression: Pulmonary vascular congestion and bilateral lower lobe infiltrates suspected. Signed by Leonides Elliott MD 10/21/2016 09:34 A
--- NOTE | 2016-10-21 10:31 | IPNPDOC ---
Subjective Date Seen The patient was seen on 10/21/16. Subjective Chief Complaint/HPI The patient is a 89-year-old female admitted with a reason for visit of Hypoxia Viral Syndrome. Events since last encounter pt seen and examined was sitting in the chair, per nursing pt is requiring oxygen during the daytime as well,, no overnight events, no fevers Objective Physical Examination General Exam: Positive: Alert, Cooperative, No Acute Distress Eye Exam: Positive: Conjunctiva & lids normal, EOMI, PERRLA, Negative: Sclera icteric ENT Exam: Positive: Atraumatic, Mucous membr. moist/pink, Pharynx Normal Neck Exam: Positive: Supple, Negative: JVD, thyromegaly Chest Exam: Positive: Diminished, Rales Heart Exam: Positive: Normal S1, Normal S2, Rate Normal, Regular Rhythm, Negative: Murmurs, Rubs Telemetry: Positive: Sinus Abdomen Exam: Positive: Soft Extremity Exam: Positive: Normal pulses, Negative: Clubbing, Cyanosis, Edema Assessment /Plan Problems (1) Hypoxia Status: Resolved Problem Text: * continues to have low oxygen saturations * nocturnal pulse ox was ordered results came back and pt needs to be on oxygen at home at bedtime * pt is also desaturating during the day, will need oxygen during the day as well * repeat xray showed pulmonary congestion despite being on lasix IV and b/l lower lobe infiltrate * will start pt on levaquin for another week. (2) Ileus Status: Resolved Problem Text: * pt is tolerating diet * daily bowel movements for the last few days (3) Abdominal pain Status: Resolved Response to Treatment: Improving Problem Text: * due to constipation ,repeat CT abdomen and pelvis was still showing fecal stasis and ileus * resolved (4) Abnormal urinalysis Status: Acute Problem Text: dirty ua with fever, pt has been afebrile since 10/12 urine culture grew aerococcus urinae sensitive to augmentin has been on it since 10/14 pt completed a course of augmentin (5) Acute bronchitis Status: Acute Response to Treatment: Improving Problem Text: cxr negative for any infiltrates. CT chest no pneumonia showed CHF pattern. (6) Viral syndrome Status: Resolved Problem Text: respiratory panel is negative will continue with tylenol for fever or pain. (7) Developmental disability Status: Chronic Problem Text: room [facility] at baseline independently ambulatory with walker, can feed by herself, unable to communicate but can understand and follow commands. (8) Glaucoma Status: Chronic (9) Hypertension Status: Chronic Plan/VTE VTE Prophylaxis Ordered?: Yes VS, I&O, 24H, Fishbone Vital Signs/I&O Vital Signs Date Time Temp Pulse Resp B/P Pulse Ox O2 Delivery O2 Flow Rate FiO2 10/21/16 09:36 90 2.0 10/21/16 09:35 Room Air 10/21/16 09:32 120/57 10/21/16 09:31 65 10/21/16 06:00 97.8 18 I&O- Last 24 Hours up to 6 AM 10/21/16 06:00 Intake Total 1410 ml Output Total 0 ml Balance 1410 ml Laboratory Data 24H LABS Laboratory Tests 2 10/21/16 05:35: Blood Urea Nitrogen 29H, Creatinine 1.10H, Sodium Level 138, Potassium Level 3.6 , Chloride Level 95L, Carbon Dioxide Level 36H, Calcium Level 9.2, Aspartate Amino Transf (AST/SGOT) 41H, Alanine Aminotransferase (ALT/SGPT) 34, Alkaline Phosphatase 83, Total Bilirubin 0.4, Total Protein 6.2L, Albumin 2.9L, Albumin/ Globulin Ratio 0.88L, Anion Gap 7L, Atypical Lymphocytes 1, White Blood Count 6.9, Red Blood Count 4.01, Hemoglobin 9.0L, Hematocrit 28.4L, Mean Corpuscular Volume 70.7L, Mean Corpuscular Hemoglobin 22.3L, Mean Corpuscular Hemoglobin Concent 31.6L, Red Cell Distribution Width 14.8H, Platelet Count 319, Neutrophils (%) (Auto) , Lymphocytes (%) (Auto) , Monocytes (%) (Auto) , Eosinophils (%) (Auto) , Basophils (%) (Auto) , Neutrophils # (Auto) , Lymphocytes # (Auto) , Monocytes # (Auto) , Eosinophils # (Auto) , Basophils # ( Auto) , Basophils (Manual) 1, Eosinophils (Manual) 2, Glomerular Filtration Rate 49.8, Hypochromasia 3+, Large Unclassified Cells # , Large Unclassified Cells % , Lymphocytes (Manual) 23, Microcytosis 2+, Monocytes (Manual) 4, Neutrophils 69, Platelet Estimate NORMAL CBC/BMP Laboratory Tests 10/21/16 05:35 Calcium Level 9.2, Aspartate Amino Transf (AST/SGOT) 41 H, Alanine Aminotransferase (ALT/SGPT) 34, Alkaline Phosphatase 83, Total Bilirubin 0.4, Total Protein 6.2 L, Albumin 2.9 L, Red Blood Count 4.01, Mean Corpuscular Volume 70.7 L, Mean Corpuscular Hemoglobin 22.3 L, Mean Corpuscular Hemoglobin Concent 31.6 L, Red Cell Distribution Width 14.8 H, Neutrophils (%) (Auto) , Lymphocytes (%) (Auto) , Monocytes (%) (Auto) , Eosinophils (%) (Auto) , Basophils (%) (Auto) , Neutrophils # (Auto) , Lymphocytes # (Auto) , Monocytes # (Auto) , Eosinophils # (Auto) , Basophils # (Auto) Microbiology Microbiology 10/15/16 Stool Occult Blood (ABHIJIT) - Final, Complete 10/11/16 Urine Culture - Final, Complete Aerococcus Urinae MILADY FLORES DO Oct 21, 2016 10:31
[2016-10-21] MEDS ORDERED: LevoFLOXacin 750 MG TABLET PO SCH (10:45)
[2016-10-21] MEDS: LATANOPROST 0.005% OPHTH SOLN 2.5 ML OU SCH (20:32)
[2016-10-21] MEDS: ACETAMINOPHEN 500 MG TAB PO PRN (20:33)
[2016-10-21 22:00] VITALS: BP 136/63
[2016-10-22 06:00] VITALS: BP 143/66
[2016-10-22] MEDS: BUDESONIDE 0.5 MG/2 ML INHALATION SUSPENSION INH SCH ×2 (07:09→19:45)
[2016-10-22] MEDS: IPRATROPIUM 0.5MG/ALBUTEROL 2.5MG INH SOL UD 3ML (DUONEB)(J7620) NEB SCH ×3 (07:09→19:45)
[2016-10-22] MEDS ORDERED: FUROSEMIDE 40 MG TAB PO SCH (09:00)
[2016-10-22] MEDS: SUCRALFATE SUSP 1GM/10ML UD PO SCH ×3 (10:12→20:35)
[2016-10-22] MEDS: ENOXAPARIN 30 MG/0.3 ML SYR (J1650) SC SCH (10:12)
[2016-10-22] MEDS: MIRALAX *UNIT DOSE* 17GM PACKET PO SCH (10:13)
[2016-10-22] MEDS: SENOKOT S TAB PO SCH ×2 (10:13→20:35)
[2016-10-22] MEDS: oxyBUTYnin 5 MG TAB PO SCH ×2 (10:14→20:35)
[2016-10-22] MEDS: risperiDONE 0.5 MG TAB PO SCH ×2 (10:14→20:35)
[2016-10-22] MEDS: amLODIPine 10 MG TAB PO SCH (10:14)
[2016-10-22] MEDS: LOSARTAN 50 MG TAB PO SCH (10:15)
[2016-10-22] MEDS: LORATADINE 10 MG TAB PO SCH (10:15)
[2016-10-22] MEDS: POLYVINYL ALCOHOL OPHTH SOLN 15 ML(LIQUITEARS) OU SCH ×4 (10:16→20:35)
[2016-10-22] MEDS: PANTOPRAZOLE 40MG INJ (PROTONIX) (C9113) IV SCH (10:16)
[2016-10-22 14:00] VITALS: BP 153/69
[2016-10-22] MEDS: NYSTATIN 500,000 U/5 ML SUSP UDC SS SCH ×2 (14:16→20:35)
--- NOTE | 2016-10-22 16:48 | IPNPDOC ---
Subjective Date Seen The patient was seen on 10/22/16. Subjective Chief Complaint/HPI The patient is a 89-year-old female admitted with a reason for visit of Hypoxia Viral Syndrome. General: Reports: ROS Unobtainable Objective Physical Examination General Exam: Positive: Alert, Cooperative, No Acute Distress Eye Exam: Positive: Conjunctiva & lids normal, EOMI, PERRLA, Negative: Sclera icteric ENT Exam: Positive: Atraumatic, Mucous membr. moist/pink, Pharynx Normal Neck Exam: Positive: Supple, Negative: JVD, thyromegaly Chest Exam: Positive: Diminished, Rales Heart Exam: Positive: Normal S1, Normal S2, Rate Normal, Regular Rhythm, Negative: Murmurs, Rubs Telemetry: Positive: Sinus Abdomen Exam: Positive: Soft Extremity Exam: Positive: Normal pulses, Negative: Clubbing, Cyanosis, Edema Assessment /Plan Problems (1) Hypoxia Status: Resolved Problem Text: * continues to have low oxygen saturations * nocturnal pulse ox was ordered results came back and pt needs to be on oxygen at home at bedtime * pt is also desaturating during the day, will need oxygen during the day as well * repeat xray showed pulmonary congestion despite being on lasix IV and b/l lower lobe infiltrate * will continue pt on levaquin for another week. (2) Ileus Status: Resolved Problem Text: * pt is tolerating diet * daily bowel movements for the last few days (3) Abdominal pain Status: Resolved Response to Treatment: Improving Problem Text: * due to constipation ,repeat CT abdomen and pelvis was still showing fecal stasis and ileus * resolved (4) Abnormal urinalysis Status: Acute Problem Text: dirty ua with fever, pt has been afebrile since 10/12 urine culture grew aerococcus urinae sensitive to augmentin has been on it since 10/14 pt completed a course of augmentin (5) Acute bronchitis Status: Acute Response to Treatment: Improving Problem Text: new chest x-ray showed new infiltrate (6) Viral syndrome Status: Resolved Problem Text: respiratory panel is negative (7) Developmental disability Status: Chronic Problem Text: room [facility] at baseline independently ambulatory with walker, can feed by herself, unable to communicate but can understand and follow commands. (8) Glaucoma Status: Chronic (9) Hypertension Status: Chronic Plan/VTE VTE Prophylaxis Ordered?: Yes VS, I&O, 24H, Fishbone Vital Signs/I&O Vital Signs Date Time Temp Pulse Resp B/P Pulse Ox O2 Delivery O2 Flow Rate FiO2 10/22/16 10:15 120/60 10/22/16 10:15 Nasal Cannula 2.0 10/22/16 06:00 97.2 62 18 96 I&O- Last 24 Hours up to 6 AM 10/22/16 06:00 Intake Total 2610 ml Output Total 0 ml Balance 2610 ml Laboratory Data Microbiology Microbiology 10/15/16 Stool Occult Blood (ABHIJIT) - Final, Complete MILADY FLORES DO Oct 22, 2016 16:48
[2016-10-22] MEDS: ACETAMINOPHEN 500 MG TAB PO PRN (17:18)
[2016-10-22] MEDS: LATANOPROST 0.005% OPHTH SOLN 2.5 ML OU SCH (20:35)
[2016-10-22 22:00] VITALS: BP 130/59
[2016-10-23 06:00] VITALS: BP 148/70
[2016-10-23] MEDS: IPRATROPIUM 0.5MG/ALBUTEROL 2.5MG INH SOL UD 3ML (DUONEB)(J7620) NEB SCH ×3 (07:06→19:34)
[2016-10-23] MEDS: BUDESONIDE 0.5 MG/2 ML INHALATION SUSPENSION INH SCH ×2 (07:06→19:34)
[2016-10-23] MEDS ORDERED: POTASSIUM CHLORIDE 10 MEQ SR TABLET PO ONE ×2 (07:45→14:45)
[2016-10-23] MEDS: NS 1,000 ML IV SCH (08:10)
[2016-10-23 08:14] LABS: ANION GAP 5 MEQ/L (8-16); BLOOD UREA NITROGEN 17 MG/DL (7-18); CALCIUM LEVEL 8.8 MG/DL (8.8-10.2); CARBON DIOXIDE LEVEL 37 MEQ/L (21-32); CHLORIDE LEVEL 98 MEQ/L (98-107); GLOMERULAR FILTRATION RATE > 60.0 (>32); GLUCOSE, FASTING 125 MG/DL (83-110); MAGNESIUM LEVEL 2.3 MG/DL (1.8-2.4); POTASSIUM SERUM 3.4 MEQ/L (3.5-5.1); SODIUM LEVEL 140 MEQ/L (136-145)
[2016-10-23 08:20] LABS: BASO % 0.9 % (0.0-1.0); EOS # 0.1 K/mm3 (0.0-0.50); EOS % 1.5 % (0.0-3.0); LARGE UNSTAINED CELL # 0.2 K/mm3 (0.0-0.4); LYMPH # 1.5 K/mm3 (1.5-4.5); LYMPH % 27.7 % (24.0-44.0); MEAN CORPUSCULAR HEMOGLOBIN 21.7 pg (27.0-33.0); MEAN CORPUSCULAR HGB CONC 30.8 g/dl (32.0-36.5); MEAN CORPUSCULAR VOLUME 70.4 fl (80.0-96.0); MONO # 0.6 K/mm3 (0.0-0.8); MONO % 12.4 % (0.0-5.0); NEUTROPHILS # 2.7 K/mm3 (1.8-7.7); NEUTROPHILS % 54.5 % (36.0-66.0); PLATELET COUNT, AUTOMATED 327 k/mm3 (150-450); RED CELL DISTRIBUTION WIDTH 14.7 % (11.5-14.5)
[2016-10-23] MEDS ORDERED: FERROUS SULFATE 325MG TAB PO SCH (09:00)
[2016-10-23] MEDS: MIRALAX *UNIT DOSE* 17GM PACKET PO SCH (09:38)
[2016-10-23] MEDS: NYSTATIN 500,000 U/5 ML SUSP UDC SS SCH ×2 (09:39→21:05)
[2016-10-23] MEDS: SUCRALFATE SUSP 1GM/10ML UD PO SCH ×3 (09:39→21:05)
[2016-10-23] MEDS: oxyBUTYnin 5 MG TAB PO SCH ×2 (09:40→21:05)
[2016-10-23] MEDS: ENOXAPARIN 30 MG/0.3 ML SYR (J1650) SC SCH (09:40)
[2016-10-23] MEDS: amLODIPine 10 MG TAB PO SCH (09:40)
[2016-10-23] MEDS: risperiDONE 0.5 MG TAB PO SCH ×2 (09:41→21:05)
[2016-10-23] MEDS: SENOKOT S TAB PO SCH ×2 (09:42→21:05)
[2016-10-23] MEDS: LOSARTAN 50 MG TAB PO SCH (09:42)
[2016-10-23] MEDS: POLYVINYL ALCOHOL OPHTH SOLN 15 ML(LIQUITEARS) OU SCH ×4 (09:42→21:06)
[2016-10-23] MEDS: LORATADINE 10 MG TAB PO SCH (09:42)
[2016-10-23] MEDS: PANTOPRAZOLE 40MG INJ (PROTONIX) (C9113) IV SCH (09:42)
[2016-10-23 14:00] VITALS: BP 127/63
--- NOTE | 2016-10-23 14:28 | IPNPDOC ---
Text Note Date of Service The patient was seen on 10/23/16. NOTE Subjective: Awake and alert. Objective: Vitals: (see below) General: No acute distress, laying comfortably in bed. HEENT: Moist mucous membranes. Neck: No JVD or lymphadenopathy Cardiac: RRR, No murmurs Pulm: Clear to auscultation b/l. No wheezing, rhonchi Abd: NT. Less distended today. No rebound/guarding/rigidity + BS Ext: No edema or cyanosis Labs (see below) Images: CTA Chest 10/23/16 Impression: No evidence for pulmonary embolus. Cardiomegaly with pulmonary vascular congestion and interstitial edema. CT Abd/pelvis 10/23/16 Impression: 1. Cardiomegaly and evidence for pulmonary vascular congestion with dependent atelectasis. 2. Fatty infiltration to the liver. 3. Sigmoid diverticula without acute diverticulitis. 4. Small stable renal cysts. 5. No ascites. No acute intra-abdominal/pelvic pathology appreciated. Assessment/Plan 1. Acute hypoxia - patient now requiring1 L nasal cannula. Questionable infiltrates on recent chest x-ray. CTA of the chest negative for PE/ consolidation. In the meantime we'll start vancomycin and Levaquin. Nebulizers. Incentive spirometer. Initially presented with viral syndrome. 2. Abnormal urinalysis- completed Augmentin 3. Developmental delay- ambulatory to the walker, is able to future self, however is unable to communicate but can understand and follow commands per medical records 4. Abdominal pain resolved had a CT abdomen and pelvis (see above). Patient has been having bowel movements. 5. Hypertension- continue current meds 6. Glaucoma DVT prophy: Enoxaparin Plan to d/c in the next 24 hours. VS,Fishbone, I+O VS, Fishbone, I+O Laboratory Tests 10/23/16 07:38 Calcium Level 8.8, Red Blood Count 4.29, Mean Corpuscular Volume 70.4 L, Mean Corpuscular Hemoglobin 21.7 L, Mean Corpuscular Hemoglobin Concent 30.8 L, Red Cell Distribution Width 14.7 H, Neutrophils (%) (Auto) 54.5, Lymphocytes (%) ( Auto) 27.7, Monocytes (%) (Auto) 12.4 H, Eosinophils (%) (Auto) 1.5, Basophils ( %) (Auto) 0.9, Neutrophils # (Auto) 2.7, Lymphocytes # (Auto) 1.5, Monocytes # ( Auto) 0.6, Eosinophils # (Auto) 0.1, Basophils # (Auto) 0.0 Vital Signs Date Time Temp Pulse Resp B/P Pulse Ox O2 Delivery O2 Flow Rate FiO2 10/23/16 13:03 91 Room Air 10/23/16 09:42 169/74 10/23/16 09:40 68 10/23/16 06:00 97.3 19 2.0 I&O- Last 24 Hours up to 6 AM 10/23/16 05:59 Intake Total 1200 ml Output Total 300 ml Balance 900 ml MING LE MD Oct 23, 2016 14:27
--- NOTE | 2016-10-23 14:44 | PHACANCOPD ---
PHARMACY VANCOMYCIN DOSING Pt Demographics Demographics Patient Age:89 , Weight:63.700 , Gender: female Adjusted Body Weight Date: 10/23/16, Adjusted Body Weight: Kg Events Past 24 Hours Events Past 24 Hours: NO: Change in CrCl, Dialysis, Diuretic Therapy, Elevation in WBC, Fever, Other, Pending Diagnostics, Pending Procedures Vancomycin Vancomycin indication: PNA Vancomycin Target Ranges: 15-20 mcg/ml Vancomycin Load Y/N: Yes Load Dose Date Time Vancomycin Load Dose: 1000MG Date: 10/23/16 Time: 1600 Vancomycin Dose Date: 10/24/16. Current Vancomycin Dose: [1000MG iV Q24H @1000] Intermittent Dosing?: No Labs Labs Item Value Date Time White Blood Count 5.5 K/mm3 10/20/16 0539 White Blood Count 6.9 K/mm3 10/21/16 0535 White Blood Count 5.0 K/mm3 10/23/16 0738 Creatinine 0.85 MG/DL 10/20/16 0539 Creatinine 1.10 MG/DL H 10/21/16 0535 Creatinine 0.70 MG/DL 10/23/16 0738 Micro Microbiology 10/15/16 Stool Occult Blood (ABHIJIT) - Final, Complete Creatinine Clearance Date:10/23/16. Creatinine Clearance: [~40ML/MIN]. Pending Labs VANCO TROUGH @ 10/26 @0900 Assessment and Plan Maintaining Current Dose?: Yes Reason for dose change: No Dose Change Pharmacist Note Pharmacist Note Date: 10/23/16. Pharmacist note: 1000MG will be administered today @ 1600 followed in 18 hours by 1000mg iv q24h. Currently no positive cultures. Vanco and levaquin were initiated for possible pneumonia. Trough is scheduled to be drawn after 3 doses (10/26/16 @0900). Monitor renal function and adjust dosing as needed. [facility] Oct 23, 2016 14:44
[2016-10-23 14:56] LABS: ABG BASE EXCESS 7.4 (-2.0-2.0); ABG HCO3 32.5 MEQ/L (22.0-26.0); ABG PARTIAL PRESSURE CO2 49.3 mmHg (35.0-45.0); ABG PARTIAL PRESSURE O2 135.1 mmHg (75.0-100.0); ABG STANDARD HCO3 31.2 MEQ/L (22.0-26.0); ABG pH (ARTERIAL) 7.437 UNITS (7.350-7.450)
[2016-10-23] MEDS ORDERED: LevoFLOXacin IV 500 MG in APPROPRIATE DILUENT 1 EA IV ONE (15:00)
[2016-10-23] MEDS: FERROUS SULFATE 300MG/5ML UDC LIQUID PO SCH (15:57)
[2016-10-23] MEDS ORDERED: GASTROGRAFIN SOLUTION 30ML PO ONE (16:00)
[2016-10-23] MEDS ORDERED: VANCOMYCIN HCL 1,000 MG, VIAL MATE ADAPTER 1 EACH in D5W 250 ML IV ONE (16:00)
[2016-10-23] MEDS ORDERED: GASTROGRAFIN SOLUTION 30ML (Q9963) PO ONE (16:30)
[2016-10-23] MEDS ORDERED: ISOVUE-370 76% 100ML VIAL (Q9967) As Ordered ONE (17:46)
--- NOTE | 2016-10-23 18:28 | REP ---
Clinical: Acute chest pain and shortness of breath. Comparison: Chest CT dated 10/11/2016. Technique: Axial contrast enhanced images from the thoracic inlet to the upper abdomen using 100 ml Isovue 370 intravenous contrast material with coronal and sagittal re-formations. Findings: Satisfactory enhancement of the pulmonary vasculature is achieved and no filling defects are identified to suggest pulmonary embolus. Evidence for cardiomegaly with pulmonary vascular congestion and pulmonary interstitial edema including bilateral ground-glass opacities and trace atelectasis. No effusion. No pneumothorax. Tracheobronchial tree patent. No adenopathy. Impression: No evidence for pulmonary embolus. Cardiomegaly with pulmonary vascular congestion and interstitial edema. Signed by Leonides Elliott MD 10/23/2016 06:20 P
--- NOTE | 2016-10-23 18:34 | REP ---
Clinical: Abdominal distension. Technique: Axial contrast enhanced images from the lung bases to the pubic symphysis using oral and 100 ml Isovue 370 intravenous contrast material with coronal and sagittal re-formations. Comparison: 10/17/2016. Findings: Lung bases demonstrate cardiomegaly and pulmonary vascular congestion/interstitial edema with bibasilar atelectasis and dependent changes. Fatty infiltration to the liver noted without focal hepatic lesion. Spleen, gallbladder, bilateral adrenal glands are normal. Involutional changes of the pancreas noted. Kidneys demonstrate bilateral cysts. The enteric system demonstrates diverticulosis without acute obstruction or inflammatory process. Normal terminal ileum and appendix identified in the right lower quadrant. Pelvis demonstrates moderately distended bladder and age-appropriate uterus/adnexa. No ascites. No adenopathy. No free air. Abdominal aorta and vasculature normal caliber. Skeletal structures demonstrate degenerative changes. Impression: 1. Cardiomegaly and evidence for pulmonary vascular congestion with dependent atelectasis. 2. Fatty infiltration to the liver. 3. Sigmoid diverticula without acute diverticulitis. 4. Small stable renal cysts. 5. No ascites. No acute intra-abdominal/pelvic pathology appreciated. Signed by Leonides Elliott MD 10/23/2016 06:26 P
[2016-10-23] MEDS: LATANOPROST 0.005% OPHTH SOLN 2.5 ML OU SCH (21:06)
[2016-10-23 22:00] VITALS: BP 139/63
[2016-10-24] MEDS: NS 1,000 ML IV SCH ×3 (02:20→22:14)
[2016-10-24 06:00] VITALS: BP 136/63
[2016-10-24 06:32] LABS: BASO % 0.5 % (0.0-1.0); EOS # 0.1 K/mm3 (0.0-0.50); EOS % 1.7 % (0.0-3.0); LARGE UNSTAINED CELL # 0.3 K/mm3 (0.0-0.4); LARGE UNSTAINED CELL % 4.2 % (0.0-4.0); LYMPH # 1.7 K/mm3 (1.5-4.5); LYMPH % 27.3 % (24.0-44.0); MEAN CORPUSCULAR HEMOGLOBIN 21.5 pg (27.0-33.0); MEAN CORPUSCULAR HGB CONC 30.8 g/dl (32.0-36.5); MEAN CORPUSCULAR VOLUME 69.8 fl (80.0-96.0); MONO # 0.3 K/mm3 (0.0-0.8); MONO % 4.4 % (0.0-5.0); NEUTROPHILS # 3.8 K/mm3 (1.8-7.7); NEUTROPHILS % 61.9 % (36.0-66.0); PLATELET COUNT, AUTOMATED 321 k/mm3 (150-450); RED CELL DISTRIBUTION WIDTH 14.3 % (11.5-14.5); WHITE BLOOD COUNT 6.2 K/mm3 (4.0-10.0)
[2016-10-24 06:42] LABS: ALBUMIN 2.6 GM/DL (3.2-5.2); ALKALINE PHOSPHATASE 72 U/L (45-117); ALT/SGPT 32 U/L (12-78); ANION GAP 7 MEQ/L (8-16); AST/SGOT 25 U/L (15-37); BILIRUBIN,TOTAL 0.3 MG/DL (0.2-1.0); BLOOD UREA NITROGEN 14 MG/DL (7-18); CALCIUM LEVEL 8.3 MG/DL (8.8-10.2); CARBON DIOXIDE LEVEL 32 MEQ/L (21-32); CHLORIDE LEVEL 103 MEQ/L (98-107); CREATININE FOR GFR 0.64 MG/DL (0.55-1.02); GLOMERULAR FILTRATION RATE > 60.0 (>32); GLUCOSE, FASTING 113 MG/DL (83-110); POTASSIUM SERUM 4.2 MEQ/L (3.5-5.1); SODIUM LEVEL 142 MEQ/L (136-145); TOTAL PROTEIN 5.5 GM/DL (6.4-8.2)
[2016-10-24] MEDS: BUDESONIDE 0.5 MG/2 ML INHALATION SUSPENSION INH SCH ×2 (07:22→19:27)
[2016-10-24] MEDS: IPRATROPIUM 0.5MG/ALBUTEROL 2.5MG INH SOL UD 3ML (DUONEB)(J7620) NEB SCH ×3 (07:22→23:51)
[2016-10-24] MEDS: SENOKOT S TAB PO SCH ×2 (09:00→20:11)
[2016-10-24] MEDS: MIRALAX *UNIT DOSE* 17GM PACKET PO SCH (09:00)
[2016-10-24] MEDS: amLODIPine 10 MG TAB PO SCH (09:00)
[2016-10-24] MEDS: LOSARTAN 50 MG TAB PO SCH (09:00)
[2016-10-24] MEDS: VANCOMYCIN HCL 1,000 MG, VIAL MATE ADAPTER 1 EACH in D5W 250 ML IV SCH (10:09)
[2016-10-24] MEDS: PANTOPRAZOLE 40MG INJ (PROTONIX) (C9113) IV SCH (10:09)
[2016-10-24] MEDS: ENOXAPARIN 30 MG/0.3 ML SYR (J1650) SC SCH (10:10)
[2016-10-24] MEDS: POLYVINYL ALCOHOL OPHTH SOLN 15 ML(LIQUITEARS) OU SCH ×4 (10:11→20:16)
[2016-10-24] MEDS: oxyBUTYnin 5 MG TAB PO SCH ×2 (11:20→20:16)
[2016-10-24] MEDS: risperiDONE 0.5 MG TAB PO SCH ×2 (11:20→20:16)
[2016-10-24] MEDS: LORATADINE 10 MG TAB PO SCH (11:20)
[2016-10-24] MEDS: NYSTATIN 500,000 U/5 ML SUSP UDC SS SCH ×2 (11:21→20:15)
[2016-10-24] MEDS: SUCRALFATE SUSP 1GM/10ML UD PO SCH ×3 (11:21→20:15)
[2016-10-24] MEDS: FERROUS SULFATE 300MG/5ML UDC LIQUID PO SCH (11:21)
[2016-10-24 14:00] VITALS: BP 138/78
[2016-10-24] MEDS: LevoFLOXacin IV 250 MG in APPROPRIATE DILUENT 1 EA IV SCH (14:54)
[2016-10-24] MEDS: SIMETHICONE 80 MG CHEW TAB PO SCH ×2 (14:55→20:16)
[2016-10-24] MEDS: LATANOPROST 0.005% OPHTH SOLN 2.5 ML OU SCH (20:16)
[2016-10-24 22:00] VITALS: BP 145/70
[2016-10-25 06:00] VITALS: BP 131/61
[2016-10-25 06:13] LABS: ALBUMIN 2.4 GM/DL (3.2-5.2); ALBUMIN/GLOBULIN RATIO 0.86 (1.00-1.93); ALKALINE PHOSPHATASE 70 U/L (45-117); ALT/SGPT 30 U/L (12-78); ANION GAP 6 MEQ/L (8-16); AST/SGOT 23 U/L (15-37); BILIRUBIN,TOTAL 0.2 MG/DL (0.2-1.0); BLOOD UREA NITROGEN 9 MG/DL (7-18); CARBON DIOXIDE LEVEL 30 MEQ/L (21-32); CHLORIDE LEVEL 108 MEQ/L (98-107); CREATININE FOR GFR 0.62 MG/DL (0.55-1.02); GLOMERULAR FILTRATION RATE > 60.0 (>32); GLUCOSE, FASTING 118 MG/DL (83-110); POTASSIUM SERUM 4.2 MEQ/L (3.5-5.1); SODIUM LEVEL 144 MEQ/L (136-145); TOTAL PROTEIN 5.2 GM/DL (6.4-8.2)
[2016-10-25 06:17] LABS: BASO % 0.4 % (0.0-1.0); EOS # 0.1 K/mm3 (0.0-0.50); EOS % 2.6 % (0.0-3.0); LARGE UNSTAINED CELL # 0.2 K/mm3 (0.0-0.4); LARGE UNSTAINED CELL % 3.4 % (0.0-4.0); LYMPH # 1.7 K/mm3 (1.5-4.5); LYMPH % 31.2 % (24.0-44.0); MEAN CORPUSCULAR HEMOGLOBIN 20.8 pg (27.0-33.0); MEAN CORPUSCULAR HGB CONC 29.3 g/dl (32.0-36.5); MEAN CORPUSCULAR VOLUME 71.1 fl (80.0-96.0); MONO # 0.5 K/mm3 (0.0-0.8); MONO % 8.3 % (0.0-5.0); NEUTROPHILS % 54.1 % (36.0-66.0); PLATELET COUNT, AUTOMATED 313 k/mm3 (150-450); RED CELL DISTRIBUTION WIDTH 14.7 % (11.5-14.5); WHITE BLOOD COUNT 5.4 K/mm3 (4.0-10.0)
[2016-10-25] MEDS: BUDESONIDE 0.5 MG/2 ML INHALATION SUSPENSION INH SCH ×2 (07:39→19:43)
[2016-10-25] MEDS: IPRATROPIUM 0.5MG/ALBUTEROL 2.5MG INH SOL UD 3ML (DUONEB)(J7620) NEB SCH ×3 (07:39→23:16)
[2016-10-25] MEDS ORDERED: FUROSEMIDE 40 MG/4 ML VIAL (J1940) IV ONE (07:45)
[2016-10-25] MEDS: LOSARTAN 50 MG TAB PO SCH (09:00)
[2016-10-25] MEDS: amLODIPine 10 MG TAB PO SCH (09:00)
[2016-10-25] MEDS: VANCOMYCIN HCL 1,000 MG, VIAL MATE ADAPTER 1 EACH in D5W 250 ML IV SCH (09:50)
[2016-10-25] MEDS: NYSTATIN 500,000 U/5 ML SUSP UDC SS SCH ×2 (10:34→20:31)
[2016-10-25] MEDS: MIRALAX *UNIT DOSE* 17GM PACKET PO SCH (10:34)
[2016-10-25] MEDS: SUCRALFATE SUSP 1GM/10ML UD PO SCH ×3 (10:34→20:31)
[2016-10-25] MEDS: FERROUS SULFATE 300MG/5ML UDC LIQUID PO SCH (10:34)
[2016-10-25] MEDS: ENOXAPARIN 30 MG/0.3 ML SYR (J1650) SC SCH (10:35)
[2016-10-25] MEDS: SIMETHICONE 80 MG CHEW TAB PO SCH ×3 (10:35→20:31)
[2016-10-25] MEDS: SENOKOT S TAB PO SCH ×2 (10:35→20:31)
[2016-10-25] MEDS: oxyBUTYnin 5 MG TAB PO SCH ×2 (10:35→20:31)
[2016-10-25] MEDS: risperiDONE 0.5 MG TAB PO SCH ×2 (10:35→20:31)
[2016-10-25] MEDS: LORATADINE 10 MG TAB PO SCH (10:35)
[2016-10-25] MEDS: PANTOPRAZOLE 40MG INJ (PROTONIX) (C9113) IV SCH (10:35)
[2016-10-25] MEDS: POLYVINYL ALCOHOL OPHTH SOLN 15 ML(LIQUITEARS) OU SCH ×4 (10:36→20:31)
[2016-10-25 14:00] VITALS: BP 120/53
[2016-10-25] MEDS: LevoFLOXacin IV 250 MG in APPROPRIATE DILUENT 1 EA IV SCH (14:25)
--- NOTE | 2016-10-25 14:40 | IPNPDOC ---
Text Note Date of Service The patient was seen on 10/25/16. NOTE Subjective: Awake and alert. Objective: Vitals: (see below) General: No acute distress, laying comfortably in bed. HEENT: Moist mucous membranes. Neck: No JVD or lymphadenopathy Cardiac: RRR, No murmurs Pulm: Clear to auscultation b/l. No wheezing, rhonchi Abd: NT. Less distended today. No rebound/guarding/rigidity + BS Ext: No edema or cyanosis Labs (see below) Images: CTA Chest 10/23/16 Impression: No evidence for pulmonary embolus. Cardiomegaly with pulmonary vascular congestion and interstitial edema. CT Abd/pelvis 10/23/16 Impression: 1. Cardiomegaly and evidence for pulmonary vascular congestion with dependent atelectasis. 2. Fatty infiltration to the liver. 3. Sigmoid diverticula without acute diverticulitis. 4. Small stable renal cysts. 5. No ascites. No acute intra-abdominal/pelvic pathology appreciated. Assessment/Plan 1. Acute hypoxia - still requiring 1 L nasal cannula. Imaging with pulmonary congestion. Echocardiogram has been ordered. Lasix 40mg IV BID. CTA of the chest negative for PE/consolidation. D/c vancomycin and Levaquin. Nebulizers. Incentive spirometer. Initially presented with viral syndrome. 2. Abnormal urinalysis- completed Augmentin 3. Developmental delay- ambulatory to the walker, is able to future self, however is unable to communicate but can understand and follow commands per medical records 4. Abdominal pain resolved had a CT abdomen and pelvis (see above). Patient has been having bowel movements. 5. Hypertension- continue current meds 6. Glaucoma DVT prophy: Enoxaparin VS,Fishbone, I+O VS, Fishbone, I+O Laboratory Tests 10/25/16 05:32 Calcium Level 8.0 L, Aspartate Amino Transf (AST/SGOT) 23, Alanine Aminotransferase (ALT/SGPT) 30, Alkaline Phosphatase 70, Total Bilirubin 0.2, Total Protein 5.2 L, Albumin 2.4 L, Red Blood Count 3.89 L, Mean Corpuscular Volume 71.1 L, Mean Corpuscular Hemoglobin 20.8 L, Mean Corpuscular Hemoglobin Concent 29.3 L, Red Cell Distribution Width 14.7 H, Neutrophils (%) (Auto) 54.1 , Lymphocytes (%) (Auto) 31.2, Monocytes (%) (Auto) 8.3 H, Eosinophils (%) (Auto ) 2.6, Basophils (%) (Auto) 0.4, Neutrophils # (Auto) 3.0, Lymphocytes # (Auto) 1.7, Monocytes # (Auto) 0.5, Eosinophils # (Auto) 0.1, Basophils # (Auto) 0.0 Vital Signs Date Time Temp Pulse Resp B/P Pulse Ox O2 Delivery O2 Flow Rate FiO2 10/25/16 09:00 131/61 10/25/16 06:00 98.0 67 17 92 High Flow Cannula 1.0 I&O- Last 24 Hours up to 6 AM 10/25/16 06:00 Intake Total 1440 ml Balance 1440 ml MING LE MD Oct 25, 2016 14:40
[2016-10-25] MEDS ORDERED: FUROSEMIDE 40 MG/4 ML VIAL (J1940) IV SCH (17:00)
[2016-10-25] MEDS: LATANOPROST 0.005% OPHTH SOLN 2.5 ML OU SCH (20:31)
[2016-10-25 22:00] VITALS: BP 140/66
[2016-10-26 06:00] VITALS: BP 141/68
[2016-10-26 06:39] LABS: BASO % 0.7 % (0.0-1.0); EOS # 0.1 K/mm3 (0.0-0.50); EOS % 1.9 % (0.0-3.0); LARGE UNSTAINED CELL # 0.2 K/mm3 (0.0-0.4); LARGE UNSTAINED CELL % 3.6 % (0.0-4.0); LYMPH # 1.9 K/mm3 (1.5-4.5); LYMPH % 33.1 % (24.0-44.0); MEAN CORPUSCULAR HEMOGLOBIN 20.8 pg (27.0-33.0); MEAN CORPUSCULAR HGB CONC 29.6 g/dl (32.0-36.5); MEAN CORPUSCULAR VOLUME 70.3 fl (80.0-96.0); MONO # 0.4 K/mm3 (0.0-0.8); MONO % 7.1 % (0.0-5.0); NEUTROPHILS % 53.5 % (36.0-66.0); PLATELET COUNT, AUTOMATED 337 k/mm3 (150-450); RED CELL DISTRIBUTION WIDTH 14.9 % (11.5-14.5); WHITE BLOOD COUNT 5.6 K/mm3 (4.0-10.0)
[2016-10-26 06:42] LABS: ALBUMIN 2.6 GM/DL (3.2-5.2); ALBUMIN/GLOBULIN RATIO 0.84 (1.00-1.93); ALKALINE PHOSPHATASE 74 U/L (45-117); ALT/SGPT 35 U/L (12-78); ANION GAP 8 MEQ/L (8-16); AST/SGOT 24 U/L (15-37); BILIRUBIN,TOTAL 0.2 MG/DL (0.2-1.0); BLOOD UREA NITROGEN 13 MG/DL (7-18); CALCIUM LEVEL 8.3 MG/DL (8.8-10.2); CARBON DIOXIDE LEVEL 30 MEQ/L (21-32); CHLORIDE LEVEL 106 MEQ/L (98-107); CREATININE FOR GFR 0.73 MG/DL (0.55-1.02); GLOMERULAR FILTRATION RATE > 60.0 (>32); GLUCOSE, FASTING 116 MG/DL (83-110); POTASSIUM SERUM 3.9 MEQ/L (3.5-5.1); SODIUM LEVEL 144 MEQ/L (136-145); TOTAL PROTEIN 5.7 GM/DL (6.4-8.2)
[2016-10-26 06:56] LABS: ADD MORPHOLOGY? YES
[2016-10-26 08:00] LABS: ANISOCYTOSIS 2+; HYPOCHROMASIA 2+; MICROCYTOSIS 2+
[2016-10-26] MEDS: IPRATROPIUM 0.5MG/ALBUTEROL 2.5MG INH SOL UD 3ML (DUONEB)(J7620) NEB SCH ×3 (08:55→23:09)
[2016-10-26] MEDS: BUDESONIDE 0.5 MG/2 ML INHALATION SUSPENSION INH SCH ×2 (08:55→19:33)
[2016-10-26] MEDS: LOSARTAN 50 MG TAB PO SCH (09:45)
[2016-10-26] MEDS: LORATADINE 10 MG TAB PO SCH (10:04)
[2016-10-26] MEDS: oxyBUTYnin 5 MG TAB PO SCH ×2 (10:04→20:20)
[2016-10-26] MEDS: SUCRALFATE SUSP 1GM/10ML UD PO SCH ×3 (10:04→20:19)
[2016-10-26] MEDS: FERROUS SULFATE 300MG/5ML UDC LIQUID PO SCH (10:04)
[2016-10-26] MEDS: amLODIPine 10 MG TAB PO SCH (10:05)
[2016-10-26] MEDS: SIMETHICONE 80 MG CHEW TAB PO SCH ×3 (10:05→20:20)
[2016-10-26] MEDS: MIRALAX *UNIT DOSE* 17GM PACKET PO SCH (10:05)
[2016-10-26] MEDS: NYSTATIN 500,000 U/5 ML SUSP UDC SS SCH ×2 (10:06→20:19)
[2016-10-26] MEDS: PANTOPRAZOLE 40MG INJ (PROTONIX) (C9113) IV SCH (10:06)
[2016-10-26] MEDS: ENOXAPARIN 30 MG/0.3 ML SYR (J1650) SC SCH (10:06)
[2016-10-26] MEDS: FUROSEMIDE 40 MG/4 ML VIAL (J1940) IV SCH ×3 (10:06→20:20)
[2016-10-26] MEDS: SENOKOT S TAB PO SCH ×2 (10:06→20:20)
[2016-10-26] MEDS: risperiDONE 0.5 MG TAB PO SCH ×2 (10:06→20:20)
[2016-10-26] MEDS: POLYVINYL ALCOHOL OPHTH SOLN 15 ML(LIQUITEARS) OU SCH ×4 (10:06→20:19)
--- NOTE | 2016-10-26 14:36 | IPNPDOC ---
Text Note Date of Service The patient was seen on 10/24/16. NOTE Subjective: Awake and alert. Objective: Vitals: (see below) General: No acute distress, laying comfortably in bed. HEENT: Moist mucous membranes. Neck: No JVD or lymphadenopathy Cardiac: RRR, No murmurs Pulm: Coarse crackles at the bases b/l. No wheezing, rhonchi Abd: NT. Less distended today. No rebound/guarding/rigidity + BS Ext: No edema or cyanosis Labs (see below) Images: CTA Chest 10/23/16 Impression: No evidence for pulmonary embolus. Cardiomegaly with pulmonary vascular congestion and interstitial edema. CT Abd/pelvis 10/23/16 Impression: 1. Cardiomegaly and evidence for pulmonary vascular congestion with dependent atelectasis. 2. Fatty infiltration to the liver. 3. Sigmoid diverticula without acute diverticulitis. 4. Small stable renal cysts. 5. No ascites. No acute intra-abdominal/pelvic pathology appreciated. Assessment/Plan 1. Acute hypoxia - patient now requiring1 L nasal cannula. Questionable infiltrates on recent chest x-ray. CTA of the chest negative for PE/ consolidation. On vancomycin and Levaquin, which will be d/c. Nebulizers. Incentive spirometer. Initially presented with viral syndrome, however scans are more consistent with pulm congestion raising suspicions for CHF. Will start lasix. Echo pending. 2. Abnormal urinalysis- completed Augmentin 3. Developmental delay- ambulatory to the walker, is able to future self, however is unable to communicate but can understand and follow commands per medical records 4. Abdominal pain resolved had a CT abdomen and pelvis (see above). Patient has been having bowel movements. 5. Hypertension- continue current meds 6. Glaucoma DVT prophy: Enoxaparin VS,Fishbone, I+O VS, Fishbone, I+O Laboratory Tests 10/26/16 05:58 Calcium Level 8.3 L, Aspartate Amino Transf (AST/SGOT) 24, Alanine Aminotransferase (ALT/SGPT) 35, Alkaline Phosphatase 74, Total Bilirubin 0.2, Total Protein 5.7 L, Albumin 2.6 L, Red Blood Count 4.06, Mean Corpuscular Volume 70.3 L, Mean Corpuscular Hemoglobin 20.8 L, Mean Corpuscular Hemoglobin Concent 29.6 L, Red Cell Distribution Width 14.9 H, Neutrophils (%) (Auto) 53.5 , Lymphocytes (%) (Auto) 33.1, Monocytes (%) (Auto) 7.1 H, Eosinophils (%) (Auto ) 1.9, Basophils (%) (Auto) 0.7, Neutrophils # (Auto) 3.0, Lymphocytes # (Auto) 1.9, Monocytes # (Auto) 0.4, Eosinophils # (Auto) 0.1, Basophils # (Auto) 0.0 Vital Signs Date Time Temp Pulse Resp B/P Pulse Ox O2 Delivery O2 Flow Rate FiO2 10/26/16 10:05 65 141/68 10/26/16 07:45 Room Air 10/26/16 06:00 98.5 16 91 1.0 I&O- Last 24 Hours up to 6 AM 10/26/16 06:00 Intake Total 1760 ml Balance 1760 ml MING LE MD Oct 26, 2016 14:36
--- NOTE | 2016-10-26 14:38 | IPNPDOC ---
Text Note Date of Service The patient was seen on 10/26/16. NOTE Subjective: Awake and alert. Objective: Vitals: (see below) General: No acute distress, laying comfortably in bed. HEENT: Moist mucous membranes. Neck: No JVD or lymphadenopathy Cardiac: RRR, No murmurs Pulm: Clear to auscultation b/l. No wheezing, rhonchi Abd: NT. Less distended today. No rebound/guarding/rigidity + BS Ext: No edema or cyanosis Labs (see below) Images: CTA Chest 10/23/16 Impression: No evidence for pulmonary embolus. Cardiomegaly with pulmonary vascular congestion and interstitial edema. CT Abd/pelvis 10/23/16 Impression: 1. Cardiomegaly and evidence for pulmonary vascular congestion with dependent atelectasis. 2. Fatty infiltration to the liver. 3. Sigmoid diverticula without acute diverticulitis. 4. Small stable renal cysts. 5. No ascites. No acute intra-abdominal/pelvic pathology appreciated. Assessment/Plan 1. Acute hypoxia - requiring 1 L nasal cannula. Imaging with pulmonary congestion. Echocardiogram has been ordered. Increase Lasix to 40mg IV TID. CTA of the chest negative for PE/consolidation. D/c vancomycin and Levaquin. Nebulizers. Incentive spirometer. Initially presented with viral syndrome. 2. Abnormal urinalysis- completed Augmentin 3. Developmental delay- ambulatory to the walker, is able to future self, however is unable to communicate but can understand and follow commands per medical records 4. Abdominal pain resolved had a CT abdomen and pelvis (see above). Patient has been having bowel movements. 5. Hypertension- continue current meds 6. Glaucoma DVT prophy: Enoxaparin Will repeat nocturnal pulse oximetry. VS,Fishbone, I+O VS, Fishbone, I+O Laboratory Tests 10/26/16 05:58 Calcium Level 8.3 L, Aspartate Amino Transf (AST/SGOT) 24, Alanine Aminotransferase (ALT/SGPT) 35, Alkaline Phosphatase 74, Total Bilirubin 0.2, Total Protein 5.7 L, Albumin 2.6 L, Red Blood Count 4.06, Mean Corpuscular Volume 70.3 L, Mean Corpuscular Hemoglobin 20.8 L, Mean Corpuscular Hemoglobin Concent 29.6 L, Red Cell Distribution Width 14.9 H, Neutrophils (%) (Auto) 53.5 , Lymphocytes (%) (Auto) 33.1, Monocytes (%) (Auto) 7.1 H, Eosinophils (%) (Auto ) 1.9, Basophils (%) (Auto) 0.7, Neutrophils # (Auto) 3.0, Lymphocytes # (Auto) 1.9, Monocytes # (Auto) 0.4, Eosinophils # (Auto) 0.1, Basophils # (Auto) 0.0 Vital Signs Date Time Temp Pulse Resp B/P Pulse Ox O2 Delivery O2 Flow Rate FiO2 10/26/16 10:05 65 141/68 10/26/16 07:45 Room Air 10/26/16 06:00 98.5 16 91 1.0 I&O- Last 24 Hours up to 6 AM 10/26/16 05:59 Intake Total 1760 ml Balance 1760 ml MING LE MD Oct 26, 2016 14:38
[2016-10-26] MEDS: LATANOPROST 0.005% OPHTH SOLN 2.5 ML OU SCH (20:19)
[2016-10-26 22:00] VITALS: BP 126/60
[2016-10-27 06:00] VITALS: BP 136/65
[2016-10-27 06:36] LABS: BASO % 0.8 % (0.0-1.0); EOS # 0.1 K/mm3 (0.0-0.50); EOS % 1.8 % (0.0-3.0); LARGE UNSTAINED CELL # 0.2 K/mm3 (0.0-0.4); LARGE UNSTAINED CELL % 3.4 % (0.0-4.0); LYMPH # 1.6 K/mm3 (1.5-4.5); LYMPH % 30.6 % (24.0-44.0); MEAN CORPUSCULAR HEMOGLOBIN 21.2 pg (27.0-33.0); MEAN CORPUSCULAR HGB CONC 30.6 g/dl (32.0-36.5); MEAN CORPUSCULAR VOLUME 69.3 fl (80.0-96.0); MONO # 0.5 K/mm3 (0.0-0.8); MONO % 9.9 % (0.0-5.0); NEUTROPHILS # 2.8 K/mm3 (1.8-7.7); NEUTROPHILS % 53.4 % (36.0-66.0); PLATELET COUNT, AUTOMATED 346 k/mm3 (150-450); RED CELL DISTRIBUTION WIDTH 15.3 % (11.5-14.5); WHITE BLOOD COUNT 5.2 K/mm3 (4.0-10.0)
[2016-10-27 06:54] LABS: ALBUMIN 2.8 GM/DL (3.2-5.2); ALBUMIN/GLOBULIN RATIO 0.88 (1.00-1.93); ALKALINE PHOSPHATASE 80 U/L (45-117); ALT/SGPT 39 U/L (12-78); ANION GAP 10 MEQ/L (8-16); AST/SGOT 30 U/L (15-37); BILIRUBIN,TOTAL 0.3 MG/DL (0.2-1.0); BLOOD UREA NITROGEN 16 MG/DL (7-18); CALCIUM LEVEL 8.3 MG/DL (8.8-10.2); CARBON DIOXIDE LEVEL 31 MEQ/L (21-32); CHLORIDE LEVEL 102 MEQ/L (98-107); CREATININE FOR GFR 0.73 MG/DL (0.55-1.02); GLOMERULAR FILTRATION RATE > 60.0 (>32); GLUCOSE, FASTING 129 MG/DL (83-110); POTASSIUM SERUM 3.4 MEQ/L (3.5-5.1); SODIUM LEVEL 143 MEQ/L (136-145)
[2016-10-27] MEDS: IPRATROPIUM 0.5MG/ALBUTEROL 2.5MG INH SOL UD 3ML (DUONEB)(J7620) NEB SCH ×3 (07:25→23:20)
[2016-10-27] MEDS: BUDESONIDE 0.5 MG/2 ML INHALATION SUSPENSION INH SCH ×2 (07:25→19:37)
[2016-10-27 08:00] VITALS: BP 126/58
[2016-10-27] MEDS: NYSTATIN 500,000 U/5 ML SUSP UDC SS SCH ×2 (09:20→21:03)
[2016-10-27] MEDS: SENOKOT S TAB PO SCH ×2 (09:21→21:04)
[2016-10-27] MEDS: POTASSIUM CHLORIDE 10 MEQ SR TABLET PO SCH (09:21)
[2016-10-27] MEDS: SUCRALFATE SUSP 1GM/10ML UD PO SCH ×3 (09:21→21:03)
[2016-10-27] MEDS: risperiDONE 0.5 MG TAB PO SCH ×2 (09:21→21:03)
[2016-10-27] MEDS: MIRALAX *UNIT DOSE* 17GM PACKET PO SCH (09:21)
[2016-10-27] MEDS: LOSARTAN 50 MG TAB PO SCH (09:21)
[2016-10-27] MEDS: FERROUS SULFATE 300MG/5ML UDC LIQUID PO SCH (09:21)
[2016-10-27] MEDS: oxyBUTYnin 5 MG TAB PO SCH ×2 (09:21→21:04)
[2016-10-27] MEDS: SIMETHICONE 80 MG CHEW TAB PO SCH ×3 (09:22→21:04)
[2016-10-27] MEDS: LORATADINE 10 MG TAB PO SCH (09:22)
[2016-10-27] MEDS: ENOXAPARIN 30 MG/0.3 ML SYR (J1650) SC SCH (09:22)
[2016-10-27] MEDS: amLODIPine 10 MG TAB PO SCH (09:23)
[2016-10-27] MEDS: PANTOPRAZOLE 40MG INJ (PROTONIX) (C9113) IV SCH (09:23)
[2016-10-27] MEDS: POLYVINYL ALCOHOL OPHTH SOLN 15 ML(LIQUITEARS) OU SCH ×4 (09:23→21:04)
[2016-10-27] MEDS: FUROSEMIDE 40 MG/4 ML VIAL (J1940) IV SCH (09:23)
--- NOTE | 2016-10-27 11:14 | ECHO ---
DATE OF PROCEDURE: 10/25/2016 REFERRING PHYSICIAN: Filiberto Moore MD PATIENT LOCATION: Room 4213 REASON FOR ECHOCARDIOGRAM: Cardiomegaly. 2D MEASUREMENTS: IVS: 1.0 cm LV: 4.7 cm LVPW: 0.9 cm LA: 2.7 cm Aorta: 2.2 cm IVC: 1.9 cm DOPPLER MEASUREMENTS: Peak velocity across the aortic valve: 1.8 m/s Peak velocity across the LVOT: 1.6 m/s Mitral E: 0.63, Mitral A: 0.58, with a ratio of 1.1 Maximum tricuspid valve velocity: 2.9 m/s 2D COMMENTS: 1. Normal left ventricular size, wall thickness and normal global left ventricular systolic function with an left ventricular ejection fraction (LVEF) estimated at 65 to 70%. 2. Normal left atrium. Normal right atrium and right ventricle. 3. The atrial septum appeared to be normal without evidence of defect or shunt. 4. Normal aortic root. 5. No pericardial effusion seen. 6. Mildly calcified aortic valve with normal leaflet excursion. Mildly calcified mitral annulus with normal anterior mitral valve leaflet motion. Normal tricuspid valve. The pulmonic valve and the proximal pulmonary artery branches were not well visualized. 7. The inferior vena cava was normal in size, central venous pressure is probably normal. DOPPLER: It detects trace to mild aortic regurgitation, trace mitral regurgitation and mild tricuspid regurgitation. The calculated pulmonary artery systolic pressure varied between 40 to 50 mmHg. Abnormal relaxation pattern was noted across the septal and lateral mitral valve annulus consistent with a pseudonormal pattern, left ventricular end-diastolic pressure might be elevated. IMPRESSION: 1. Normal global left ventricular systolic function. There are some features of left ventricular diastolic dysfunction as mentioned above. 2. Aortic valve sclerosis with trace to mild aortic regurgitation. 3. Mitral annulus calcification with trace mitral regurgitation. 4. Mild tricuspid regurgitation with probably moderate pulmonary artery hypertension.
--- NOTE | 2016-10-27 12:16 | NOCOX ---
DATE OF PROCEDURE: 10/26/2016 into the morning of 10/27/2016 Done on room air. There are areas of cyclic desaturation on top of areas of decreased baseline, suggesting concomitant hypoventilation. IMPRESSION: Abnormal nocturnal oximetry. Suggest adding oxygen and repeating the study.
--- NOTE | 2016-10-27 12:53 | IPNPDOC ---
Text Note Date of Service The patient was seen on 10/27/16. NOTE Subjective: Awake and alert. Objective: Vitals: (see below) General: No acute distress, laying comfortably in bed. HEENT: Moist mucous membranes. Neck: No JVD or lymphadenopathy Cardiac: RRR, No murmurs Pulm: Clear to auscultation b/l. No wheezing, rhonchi Abd: NT. Less distended today. No rebound/guarding/rigidity + BS Ext: No edema or cyanosis Labs (see below) Images: CTA Chest 10/23/16 Impression: No evidence for pulmonary embolus. Cardiomegaly with pulmonary vascular congestion and interstitial edema. CT Abd/pelvis 10/23/16 Impression: 1. Cardiomegaly and evidence for pulmonary vascular congestion with dependent atelectasis. 2. Fatty infiltration to the liver. 3. Sigmoid diverticula without acute diverticulitis. 4. Small stable renal cysts. 5. No ascites. No acute intra-abdominal/pelvic pathology appreciated. Echocardiogram 10/25/16 2D COMMENTS: 1. Normal left ventricular size, wall thickness and normal global left ventricular systolic function with an left ventricular ejection fraction (LVEF) estimated at 65 to 70%. 2. Normal left atrium. Normal right atrium and right ventricle. 3. The atrial septum appeared to be normal without evidence of defect or shunt. 4. Normal aortic root. 5. No pericardial effusion seen. 6. Mildly calcified aortic valve with normal leaflet excursion. Mildly calcified mitral annulus with normal anterior mitral valve leaflet motion. Normal tricuspid valve. The pulmonic valve and the proximal pulmonary artery branches were not well visualized. 7. The inferior vena cava was normal in size, central venous pressure is probably normal. DOPPLER: It detects trace to mild aortic regurgitation, trace mitral regurgitation and mild tricuspid regurgitation. The calculated pulmonary artery systolic pressure varied between 40 to 50 mmHg. Abnormal relaxation pattern was noted across the septal and lateral mitral valve annulus consistent with a pseudonormal pattern, left ventricular end-diastolic pressure might be elevated. IMPRESSION: 1. Normal global left ventricular systolic function. There are some features of left ventricular diastolic dysfunction as mentioned above. 2. Aortic valve sclerosis with trace to mild aortic regurgitation. 3. Mitral annulus calcification with trace mitral regurgitation. 4. Mild tricuspid regurgitation with probably moderate pulmonary artery hypertension. Assessment/Plan 1. Acute decompensated diastolic dysfunction - Now on RA, off O2. Imaging with pulmonary congestion. Echocardiogram with diastolic dysfunction (see above). Cont lasix to 40mg IV TID. CTA of the chest negative for PE/consolidation. D/c vancomycin and Levaquin. Nebulizers. Incentive spirometer. Initially presented with viral syndrome. 2. Abnormal urinalysis- completed Augmentin 3. Developmental delay- ambulatory to the walker, is able to future self, however is unable to communicate but can understand and follow commands per medical records 4. Abdominal pain resolved had a CT abdomen and pelvis (see above). Patient has been having bowel movements. 5. Hypertension- continue current meds 6. Glaucoma DVT prophy: Enoxaparin Pulse ox on RA with desaturations, and recommendations for repeat nocturnal pulse oximetry on O2. VS,Fishbone, I+O VS, Fishbone, I+O Laboratory Tests 10/27/16 05:35 Calcium Level 8.3 L, Aspartate Amino Transf (AST/SGOT) 30, Alanine Aminotransferase (ALT/SGPT) 39, Alkaline Phosphatase 80, Total Bilirubin 0.3, Total Protein 6.0 L, Albumin 2.8 L, Red Blood Count 4.28, Mean Corpuscular Volume 69.3 L, Mean Corpuscular Hemoglobin 21.2 L, Mean Corpuscular Hemoglobin Concent 30.6 L, Red Cell Distribution Width 15.3 H, Neutrophils (%) (Auto) 53.4 , Lymphocytes (%) (Auto) 30.6, Monocytes (%) (Auto) 9.9 H, Eosinophils (%) (Auto ) 1.8, Basophils (%) (Auto) 0.8, Neutrophils # (Auto) 2.8, Lymphocytes # (Auto) 1.6, Monocytes # (Auto) 0.5, Eosinophils # (Auto) 0.1, Basophils # (Auto) 0.0 Vital Signs Date Time Temp Pulse Resp B/P Pulse Ox O2 Delivery O2 Flow Rate FiO2 10/27/16 09:44 90 10/27/16 09:23 Room Air 10/27/16 09:21 136/65 10/27/16 08:00 97.5 76 16 10/26/16 06:00 1.0 I&O- Last 24 Hours up to 6 AM 10/27/16 06:00 Intake Total 1660 ml Output Total 0 ml Balance 1660 ml MING LE MD Oct 27, 2016 12:53
[2016-10-27 14:50] VITALS: BP 143/60
[2016-10-27] MEDS: LATANOPROST 0.005% OPHTH SOLN 2.5 ML OU SCH ×2 (16:12→21:04)
[2016-10-27] MEDS: FUROSEMIDE 40 MG TAB PO SCH ×2 (16:12→21:04)
[2016-10-27] MEDS ORDERED: FUROSEMIDE 40 MG TAB PO SCH (17:00)
[2016-10-27 22:00] VITALS: BP 143/77
[2016-10-28 06:00] VITALS: BP 130/60
[2016-10-28 06:18] LABS: BASO % 0.6 % (0.0-1.0); EOS # 0.1 K/mm3 (0.0-0.50); EOS % 1.3 % (0.0-3.0); LARGE UNSTAINED CELL # 0.2 K/mm3 (0.0-0.4); LARGE UNSTAINED CELL % 3.9 % (0.0-4.0); LYMPH # 1.5 K/mm3 (1.5-4.5); LYMPH % 27.6 % (24.0-44.0); MEAN CORPUSCULAR HEMOGLOBIN 21.2 pg (27.0-33.0); MEAN CORPUSCULAR HGB CONC 30.5 g/dl (32.0-36.5); MEAN CORPUSCULAR VOLUME 69.6 fl (80.0-96.0); MONO # 0.5 K/mm3 (0.0-0.8); MONO % 9.7 % (0.0-5.0); NEUTROPHILS # 3.2 K/mm3 (1.8-7.7); NEUTROPHILS % 56.9 % (36.0-66.0); PLATELET COUNT, AUTOMATED 338 k/mm3 (150-450); RED CELL DISTRIBUTION WIDTH 15.6 % (11.5-14.5); WHITE BLOOD COUNT 5.5 K/mm3 (4.0-10.0)
[2016-10-28 06:19] LABS: ADD MORPHOLOGY? YES
[2016-10-28 06:28] LABS: ALBUMIN 3.1 GM/DL (3.2-5.2); ALBUMIN/GLOBULIN RATIO 0.89 (1.00-1.93); ALKALINE PHOSPHATASE 81 U/L (45-117); ALT/SGPT 39 U/L (12-78); ANION GAP 9 MEQ/L (8-16); AST/SGOT 32 U/L (15-37); BILIRUBIN,TOTAL 0.3 MG/DL (0.2-1.0); BLOOD UREA NITROGEN 15 MG/DL (7-18); CALCIUM LEVEL 8.8 MG/DL (8.8-10.2); CARBON DIOXIDE LEVEL 31 MEQ/L (21-32); CHLORIDE LEVEL 105 MEQ/L (98-107); CREATININE FOR GFR 0.68 MG/DL (0.55-1.02); GLOMERULAR FILTRATION RATE > 60.0 (>32); GLUCOSE, FASTING 120 MG/DL (83-110); POTASSIUM SERUM 3.4 MEQ/L (3.5-5.1); SODIUM LEVEL 145 MEQ/L (136-145); TOTAL PROTEIN 6.6 GM/DL (6.4-8.2)
[2016-10-28 06:53] LABS: MICROCYTOSIS 2+
[2016-10-28 06:54] LABS: ANISOCYTOSIS 1+; HYPOCHROMASIA 2+
[2016-10-28] MEDS: BUDESONIDE 0.5 MG/2 ML INHALATION SUSPENSION INH SCH (07:06)
[2016-10-28] MEDS: IPRATROPIUM 0.5MG/ALBUTEROL 2.5MG INH SOL UD 3ML (DUONEB)(J7620) NEB SCH (07:07)
[2016-10-28] MEDS ORDERED: PANTOPRAZOLE 40MG TAB (PROTONIX) PO SCH (09:00)
[2016-10-28] MEDS: POTASSIUM CHLORIDE 10 MEQ SR TABLET PO SCH (09:21)
[2016-10-28] MEDS: NYSTATIN 500,000 U/5 ML SUSP UDC SS SCH (09:21)
[2016-10-28] MEDS: SUCRALFATE SUSP 1GM/10ML UD PO SCH (09:21)
[2016-10-28] MEDS: FERROUS SULFATE 300MG/5ML UDC LIQUID PO SCH (09:22)
[2016-10-28] MEDS: risperiDONE 0.5 MG TAB PO SCH (09:22)
[2016-10-28] MEDS: ENOXAPARIN 30 MG/0.3 ML SYR (J1650) SC SCH (09:22)
[2016-10-28] MEDS: MIRALAX *UNIT DOSE* 17GM PACKET PO SCH (09:22)
[2016-10-28] MEDS: FUROSEMIDE 40 MG TAB PO SCH (09:22)
[2016-10-28 09:23] VITALS: BP 130/60
[2016-10-28] MEDS: oxyBUTYnin 5 MG TAB PO SCH (09:23)
[2016-10-28] MEDS: LOSARTAN 50 MG TAB PO SCH (09:23)
[2016-10-28] MEDS: LORATADINE 10 MG TAB PO SCH (09:23)
[2016-10-28] MEDS: SENOKOT S TAB PO SCH (09:23)
[2016-10-28] MEDS: amLODIPine 10 MG TAB PO SCH (09:23)
[2016-10-28] MEDS: SIMETHICONE 80 MG CHEW TAB PO SCH (09:23)
[2016-10-28] MEDS: POLYVINYL ALCOHOL OPHTH SOLN 15 ML(LIQUITEARS) OU SCH (09:24)
[2016-10-28] MEDS ORDERED: NYST50SS SS (10:47)
[2016-10-28] MEDS ORDERED: POTA10CA PO (10:47)
[2016-10-28] MEDS ORDERED: COZA50TA PO (10:47)
[2016-10-28] MEDS ORDERED: FURO40TA2 PO (10:47)
--- NOTE | 2016-10-28 12:16 | NOCOX ---
DATE OF PROCEDURE: 10/27/2016 to 10/28/2016 The study is performed on 1 to 2 liters of nasal cannula. The patient frequently removed not only the nasal cannula, but as well a finger probe for the nocturnal oxygen. The study is marred with significant amounts of artifact. The brief amount of information obtained from about 2200 to 2330 appears to have reasonable oxygen saturations on 1 to 2 liters nasal cannula. IMPRESSION: Probably acceptable oxygenation on 1 to 2 liters nasal cannula.
--- NOTE | 2016-10-28 14:01 | DS.PDOC ---
Discharge Summary General Date of Admission Oct 10, 2016 at 10:16 Date of Discharge Oct 28, 2016 at 12:30 Attending Physician: MING LE MD Discharge Summary PROCEDURES PERFORMED DURING STAY: None. COMPLICATIONS/CHIEF COMPLAINT: Hypoxia ADMISSION/DISCHARGE DIAGNOSES: 1. Acute hypoxia with viral illness 2. Acute decompensated diastolic heart failure 3. Urinary tract infection 4. Hypertension 5. Developmental delay 6. Glaucoma 7. Oral thrush HISTORY OF PRESENT ILLNESS/HOSPITAL COURSE: This 89-year-old female past with history of developmental delay, hypertension who presents with hypoxia. Patient was initially admitted with hypoxia with symptoms of a viral illness. Patient was then noted to be acute decompensated diastolic heart failure and was diuresed very well. Patient ambulated well with physical therapy and did not require oxygen with ambulation. Patient did have a nocturnal pulse ox which was initially recommending oxygen therapy however this was before the patient was diuresed. Her repeat pulse ox was inconclusive and then the patient would not keep her nasal cannula on. Patient will need to be followed up by pulmonary outpatient for possible sleep study. Patient is hemodynamically stable and ready to be discharged back to the [facility]. DISCHARGE MEDICATIONS: Please see below. ALLERGIES: Please see below. PHYSICAL EXAMINATION ON DISCHARGE: Vitals: (see below) General: No acute distress, laying comfortably in bed. HEENT: Moist mucous membranes. Neck: No JVD or lymphadenopathy Cardiac: RRR, No murmurs Pulm: Clear to auscultation b/l. No wheezing, rhonchi Abd: NT. Less distended today. No rebound/guarding/rigidity + BS Ext: No edema or cyanosis LABORATORY DATA: Please see below. IMAGING: CTA Chest 10/23/16 Impression: No evidence for pulmonary embolus. Cardiomegaly with pulmonary vascular congestion and interstitial edema. CT Abd/pelvis 10/23/16 Impression: 1. Cardiomegaly and evidence for pulmonary vascular congestion with dependent atelectasis. 2. Fatty infiltration to the liver. 3. Sigmoid diverticula without acute diverticulitis. 4. Small stable renal cysts. 5. No ascites. No acute intra-abdominal/pelvic pathology appreciated. Echocardiogram 10/25/16 2D COMMENTS: 1. Normal left ventricular size, wall thickness and normal global left ventricular systolic function with an left ventricular ejection fraction (LVEF) estimated at 65 to 70%. 2. Normal left atrium. Normal right atrium and right ventricle. 3. The atrial septum appeared to be normal without evidence of defect or shunt. 4. Normal aortic root. 5. No pericardial effusion seen. 6. Mildly calcified aortic valve with normal leaflet excursion. Mildly calcified mitral annulus with normal anterior mitral valve leaflet motion. Normal tricuspid valve. The pulmonic valve and the proximal pulmonary artery branches were not well visualized. 7. The inferior vena cava was normal in size, central venous pressure is probably normal. DOPPLER: It detects trace to mild aortic regurgitation, trace mitral regurgitation and mild tricuspid regurgitation. The calculated pulmonary artery systolic pressure varied between 40 to 50 mmHg. Abnormal relaxation pattern was noted across the septal and lateral mitral valve annulus consistent with a pseudonormal pattern, left ventricular end-diastolic pressure might be elevated. IMPRESSION: 1. Normal global left ventricular systolic function. There are some features of left ventricular diastolic dysfunction as mentioned above. 2. Aortic valve sclerosis with trace to mild aortic regurgitation. 3. Mitral annulus calcification with trace mitral regurgitation. 4. Mild tricuspid regurgitation with probably moderate pulmonary artery hypertension. VTE Prophylaxis ordered?: Y DISCHARGE CONDITION: Stable. DISPOSITION: [facility]. ACTIVITY: As tolerated. DIET: Low Na DISCHARGE PLAN AND INSTRUCTIONS: 1. F/u with PCP in 1-2 weeks, will need to be referred by PCP to Cardio for HF, and Pulmonary for outpatient sleep study. TIME SPENT ON DISCHARGE: Greater than 30 minutes. Vital Signs/I&Os Vital Signs Date Time Temp Pulse Resp B/P Pulse Ox O2 Delivery O2 Flow Rate FiO2 10/28/16 09:24 Room Air 10/28/16 09:23 130/60 10/28/16 07:07 2.0 10/28/16 06:00 99.0 74 20 95 I&O- Last 24 Hours up to 6 AM 10/28/16 06:00 Intake Total 440 ml Output Total 0 ml Balance 440 ml Laboratory Data Labs 24H Laboratory Tests 2 10/28/16 05:30: Blood Urea Nitrogen 15, Creatinine 0.68, Sodium Level 145, Potassium Level 3.4L , Chloride Level 105, Carbon Dioxide Level 31, Calcium Level 8.8, Aspartate Amino Transf (AST/SGOT) 32, Alanine Aminotransferase (ALT/SGPT) 39, Alkaline Phosphatase 81, Total Bilirubin 0.3, Total Protein 6.6, Albumin 3.1L, Albumin/ Globulin Ratio 0.89L, Anion Gap 9, Anisocytosis 1+, White Blood Count 5.5, Red Blood Count 4.44, Hemoglobin 9.4L, Hematocrit 30.9L, Mean Corpuscular Volume 69.6L, Mean Corpuscular Hemoglobin 21.2L, Mean Corpuscular Hemoglobin Concent 30.5L, Red Cell Distribution Width 15.6H, Platelet Count 338, Neutrophils (%) ( Auto) 56.9, Lymphocytes (%) (Auto) 27.6, Monocytes (%) (Auto) 9.7H, Eosinophils (%) (Auto) 1.3, Basophils (%) (Auto) 0.6, Neutrophils # (Auto) 3.2, Lymphocytes # (Auto) 1.5, Monocytes # (Auto) 0.5, Eosinophils # (Auto) 0.1, Basophils # ( Auto) 0.0, Glomerular Filtration Rate > 60.0, Hypochromasia 2+, Large Unclassified Cells # 0.2, Large Unclassified Cells % 3.9, Microcytosis 2+, Platelet Estimate NORMAL CBC/BMP Laboratory Tests 10/28/16 05:30 Calcium Level 8.8, Aspartate Amino Transf (AST/SGOT) 32, Alanine Aminotransferase (ALT/SGPT) 39, Alkaline Phosphatase 81, Total Bilirubin 0.3, Total Protein 6.6, Albumin 3.1 L, Red Blood Count 4.44, Mean Corpuscular Volume 69.6 L, Mean Corpuscular Hemoglobin 21.2 L, Mean Corpuscular Hemoglobin Concent 30.5 L, Red Cell Distribution Width 15.6 H, Neutrophils (%) (Auto) 56.9, Lymphocytes (%) (Auto) 27.6, Monocytes (%) (Auto) 9.7 H, Eosinophils (%) (Auto) 1.3, Basophils (%) (Auto) 0.6, Neutrophils # (Auto) 3.2, Lymphocytes # (Auto) 1.5, Monocytes # (Auto) 0.5, Eosinophils # (Auto) 0.1, Basophils # (Auto) 0.0 Medications Scheduled (Pataday) 0.2 % Juliette 1 DROP OU DAILY (Reported) (Preservision Areds) 1 Cap Cap 1 CAP PO BID (Reported) (Calcium/Vitamin D3 600-400 mg-Unit) 1 Tab Tab 1 TAB PO BID (Reported) Amlodipine Besylate (Amlodipine Besylate) 10 Mg Tab 10 MG PO DAILY (Reported) Artificial Tears (Artificial Tears) 1.4 % Juliette 2 DROP OU QID (Reported) Furosemide (Furosemide) 40 Mg Tab 40 MG PO DAILY Ibandronate Sodium (Boniva) 150 Mg Tab 150 MG PO QMONTH (Reported) LAST SATURDAY OF EVERY MONTH Lactulose (Lactulose) 10 Gm/15 Ml Juliette 15 ML PO DAILY (Reported) Latanoprost (Latanoprost) 50 Drop/2.5 Ml Soln 1 DROP OU QHS (Reported) Loratadine (Loratadine) 10 Mg Tab 10 MG PO DAILY (Reported) Losartan Potassium (Cozaar) 50 Mg Tab 50 MG PO DAILY Metoclopramide HCl (Metoclopramide HCl) 5 Mg/5 Ml Liq 5 MG PO ACHS (Reported) Multivitamins Liquid *SMC STOCKED* (Multi-Delyn Liquid *[facility] STOCKED*) 5 Ml Liqd 10 ML PO DAILY (Reported) Nystatin (Nystatin Oral Susp) 5 Ml Susp 5 ML SS BID Oxybutynin Chloride (Oxybutynin Chloride) 5 Mg Tab 5 MG PO BID (Reported) Ranitidine HCl (Ranitidine HCl) 150 Mg/10 Ml Syrp 150 MG PO BID (Reported) Risperidone (Risperdal) 0.5 Mg Tab 0.5 MG PO BID (Reported) Sucralfate (Carafate) 1 Gm/10 Ml Rosa 1 GM PO TID (Reported) Vitamin E (Vitamin E) 400 Unit Cap 400 UNIT PO DAILY (Reported) Allergies Coded Allergies: Ibuprofen (Unverified Allergy, Unknown, AVOIDS (PT ON NAPROXEN), 08/20/16) Lisinopril (Unverified Allergy, Unknown, UNKNOWN, 08/20/16) MING LE MD Oct 28, 2016 14:01
== END 2016-10-28 12:30 | disposition home or self-care (01) | DRG 202 ==
LOC: M ED 06:28 → M ED INP 10:16 → M MSPAV 14:19
PROVIDERS: ADMIT Internal Medicine Nephrology; ATTEND Internal Medicine
DX: J20.9 Acute bronchitis, unspecified (principal); I50.33 Acute on chronic diastolic (congestive) heart failure; K56.7 Ileus, unspecified; N39.0 Urinary tract infection, site not specified; B37.0 Candidal stomatitis; I10 Essential (primary) hypertension; K57.30 Diverticulosis of large intestine without perforation or abscess without bleeding; H40.9 Unspecified glaucoma; K59.00 Constipation, unspecified; K29.70 Gastritis, unspecified, without bleeding; F79 Unspecified intellectual disabilities; R09.02 Hypoxemia; B34.9 Viral infection, unspecified; K76.0 Fatty (change of) liver, not elsewhere classified; Z79.899 Other long term (current) drug therapy

== ENCOUNTER → 2016-12-25 | Outpatient (REF) | payer MEDICARE, MEDICAID ==
[~2016-12-25] MED LIST changes: +AMLO5TAB2 PO; +CALC1TAB64 PO; +CEFT500T3 PO; +COZA50TA PO; +FURO40TA2 PO; +LORA10TA2 PO; +NYST50SS SS; +POTA10CA PO; +VITA5ELUD PO
== END ==
LOC: M SFHCLERA 11:48
PROVIDERS: ATTEND Family Medicine
DX: R30.0 Dysuria (principal)
CPT/HCPCS: 81002; 87086; G0463

== ENCOUNTER 2016-12-31 12:52 | Inpatient (IN) | payer MEDICARE, MEDICAID ==
[~2016-12-31] VITALS: Ht 152.4 cm; Wt 66.2 kg
[~2016-12-31 12:52] MED LIST changes: -AMLO5TAB2 PO; -CEFT500T3 PO
[2016-12-31 13:53] LABS: ADD MORPHOLOGY? YES; BASO # 0.1 K/mm3 (0.0-0.2); BASO % 0.5 % (0.0-1.0); EOS # 0.1 K/mm3 (0.0-0.50); EOS % 0.8 % (0.0-3.0); LARGE UNSTAINED CELL # 0.2 K/mm3 (0.0-0.4); LARGE UNSTAINED CELL % 1.7 % (0.0-4.0); LYMPH # 1.6 K/mm3 (1.5-4.5); LYMPH % 9.8 % (24.0-44.0); MEAN CORPUSCULAR HGB CONC 29.6 g/dl (32.0-36.5); MEAN CORPUSCULAR VOLUME 64.1 fl (80.0-96.0); MONO # 1.3 K/mm3 (0.0-0.8); MONO % 9.5 % (0.0-5.0); NEUTROPHILS # 10.9 K/mm3 (1.8-7.7); NEUTROPHILS % 77.6 % (36.0-66.0); PLATELET COUNT, AUTOMATED 310 k/mm3 (150-450); RED CELL DISTRIBUTION WIDTH 18.7 % (11.5-14.5); WHITE BLOOD COUNT 14.1 K/mm3 (4.0-10.0)
[2016-12-31] MEDS ORDERED: SODIUM CHLORIDE 0.9% 1000 ML IV ONE (14:00)
[2016-12-31 14:14] LABS: ANION GAP 7 MEQ/L (8-16); BLOOD UREA NITROGEN 12 MG/DL (7-18); CALCIUM LEVEL 8.2 MG/DL (8.8-10.2); CARBON DIOXIDE LEVEL 28 MEQ/L (21-32); CHLORIDE LEVEL 102 MEQ/L (98-107); CREATININE FOR GFR 0.65 MG/DL (0.55-1.02); GLOMERULAR FILTRATION RATE > 60.0 (>32); GLUCOSE, FASTING 119 MG/DL (83-110); POTASSIUM SERUM 3.8 MEQ/L (3.5-5.1); SODIUM LEVEL 137 MEQ/L (136-145)
--- NOTE | 2016-12-31 14:15 | REP ---
CHEST, PORTABLE: AP portable view of the chest is performed and compared to the prior study of 10/21/2016 as well as other prior exams. There is cardiomegaly. There is poor ventilation with linear atelectatic change in each lung base. There is mild left basilar atelectasis/infiltrate in the retrocardiac region. The mediastinal silhouette is unchanged. There are degenerative changes of the spine. IMPRESSION: Cardiomegaly. Mild left basilar atelectasis/infiltrate. Signed by Mateusz Torrez MD 12/31/2016 05:44 P
[2016-12-31] MEDS ORDERED: MOXIFLOXACIN HCL 400 MG in APPROPRIATE DILUENT 1 EA IV ONE (14:30)
[2016-12-31] MEDS ORDERED: AMLO5TAB2 PO (14:31)
[2016-12-31 14:40] LABS: ANISOCYTOSIS 2+; HYPOCHROMASIA 2+; MICROCYTOSIS 2+
[2016-12-31] MEDS ORDERED: NS 1,000 ML IV SCH (16:01)
[2016-12-31] MEDS ORDERED: ONDANSETRON 4MG/2ML VIAL (J2405) IV PRN (16:15)
--- NOTE | 2016-12-31 16:27 | HPEPDOC ---
General Date of Admission December 31, 2016 at 16:01 Chief Complaint The patient is a 89-year-old female Presented to the ER with complaints of cough and fever from [facility]. History of Present Illness Patient is an 89 year old female with a PMHx of Developmental delay, Diastolic CHF, HTN, Hx of Diverticulosis, Glaucoma and GERD who presented to the ER with fever and cough. Patient is non-verbal at baseline and unable to provide any details to her story. Information was collected from her care provider and the medical record. Patient was noted to have a dry cough 2 days ago that progressed to a fever of 102F this morning. She received a bath and her temperature normalized to 99F. Soon after she was found to be in some respiratory distress and found that her saturation was 88% and had a fever of 101.4F. She was noted to have a harsh cough, but not spitting up any sputum. She had one episode of vomiting in the ER but has not been vomiting in the [facility]. Care provider has not noticed any pain that was reported or diarrhea. She has had normal bowel movements. Her weight has remained consistent. Home Medications Scheduled (Pataday) 0.2 % Juliette, 1 DROP OU DAILY, (Reported) (Preservision Areds) 1 Cap Cap, 1 CAP PO BID, (Reported) (Calcium/Vitamin D3 600-400 mg-Unit) 1 Tab Tab, 1 TAB PO BID, (Reported) Amlodipine Besylate (Amlodipine Besylate) 5 Mg Tab, 5 MG PO QHS, (Reported) Artificial Tears (Artificial Tears) 1.4 % Juliette, 2 DROP OU QID, (Reported) Furosemide (Furosemide) 40 Mg Tab, 40 MG PO DAILY Lactulose (Lactulose) 10 Gm/15 Ml Juliette, 15 ML PO DAILY, (Reported) Latanoprost (Latanoprost) 50 Drop/2.5 Ml Soln, 1 DROP OU QHS, (Reported) Loratadine (Loratadine) 10 Mg Tab, 10 MG PO DAILY, (Reported) Losartan Potassium (Cozaar) 50 Mg Tab, 50 MG PO DAILY Metoclopramide HCl (Metoclopramide HCl) 5 Mg/5 Ml Liq, 5 MG PO ACHS, (Reported) Multivitamins Liquid *SMC STOCKED* (Multi-Delyn Liquid *SMC STOCKED*) 5 Ml Liqd , 10 ML PO DAILY, (Reported) Oxybutynin Chloride (Oxybutynin Chloride) 5 Mg Tab, 5 MG PO BID, (Reported) Ranitidine HCl (Ranitidine HCl) 150 Mg/10 Ml Syrp, 150 MG PO BID, (Reported) Risperidone (Risperdal) 0.5 Mg Tab, 0.5 MG PO BID, (Reported) Sucralfate (Carafate) 1 Gm/10 Ml Rosa, 1 GM PO TID, (Reported) Vitamin E (Vitamin E) 400 Unit Cap, 400 UNIT PO DAILY, (Reported) Allergies Coded Allergies: Lisinopril (Unverified Allergy, Unknown, UNKNOWN, 08/20/16) Ibuprofen (Verified Adverse Reaction, Mild, AVOIDS (PT ON NAPROXEN), ) Past Medical History Medical History Developmental delay, Diastolic CHF, HTN, Hx of Diverticulosis, Glaucoma and GERD Surgical History Unobtainable Family History - Non-contributory Social History - Denies the use of alcohol, tobacco or illicit drugs - Denies recent travel or sick contacts - Lives at [facility] ([facility]) Review of Symptoms Other systems Unable to obtain as patient is non-verbal Vital Signs - Vitals: BP 147/68, HR 71, RR 18, Sat 93%NC3L, Temp 99.7F - General: Lying in bed, No acute distress, awake and alert - HEENT: NC, AT, PERRLA, EOMI - CVS: RRR, +S1S2, - Lungs: Poor inspiratory effort, unable to appreciate wheezing / rhonchi / rales - Abdomen: Soft, Non-distended, Non-tender, + Bowel sounds x 4 - Extremities: + PPx4, No lower extremity edema, No calf tenderness - Neuro: Moving all four extremities - Skin: No visible rashes Laboratory Data Labs 24H Laboratory Tests 2 12/31/16 13:19: Lactic Acid Level 1.1 12/31/16 13:20: White Blood Count 14.1H, Red Blood Count 4.76, Hemoglobin 9.0L, Hematocrit 30.5L , Mean Corpuscular Volume 64.1L, Mean Corpuscular Hemoglobin 19.0L, Mean Corpuscular Hemoglobin Concent 29.6L, Red Cell Distribution Width 18.7H, Platelet Count 310, Neutrophils (%) (Auto) 77.6H, Lymphocytes (%) (Auto) 9.8L, Monocytes (%) (Auto) 9.5H, Eosinophils (%) (Auto) 0.8, Basophils (%) (Auto) 0.5 , Neutrophils # (Auto) 10.9H, Lymphocytes # (Auto) 1.6, Monocytes # (Auto) 1.3H , Eosinophils # (Auto) 0.1, Basophils # (Auto) 0.1, Large Unclassified Cells % 1.7, Large Unclassified Cells # 0.2, Platelet Estimate NORMAL, Hypochromasia 2+ , Anisocytosis 2+, Microcytosis 2+, Anion Gap 7L, Glomerular Filtration Rate > 60.0, Blood Urea Nitrogen 12, Creatinine 0.65, Sodium Level 137, Potassium Level 3.8, Chloride Level 102, Carbon Dioxide Level 28, Calcium Level 8.2L, Total Creatine Kinase 44, Creatine Kinase MB 1.0, Creatine Kinase MB Relative Index 2.27, Troponin I < 0.02, B-Type Natriuretic Peptide 151H, Thyroid Stimulating Hormone (TSH) 4.990H CBC/BMP Laboratory Tests 12/31/16 13:20 Red Blood Count 4.76, Mean Corpuscular Volume 64.1 L, Mean Corpuscular Hemoglobin 19.0 L, Mean Corpuscular Hemoglobin Concent 29.6 L, Red Cell Distribution Width 18.7 H, Neutrophils (%) (Auto) 77.6 H, Lymphocytes (%) (Auto ) 9.8 L, Monocytes (%) (Auto) 9.5 H, Eosinophils (%) (Auto) 0.8, Basophils (%) ( Auto) 0.5, Neutrophils # (Auto) 10.9 H, Lymphocytes # (Auto) 1.6, Monocytes # ( Auto) 1.3 H, Eosinophils # (Auto) 0.1, Basophils # (Auto) 0.1, Calcium Level 8.2 L, Total Creatine Kinase 44 Microbiology Microbiology 12/31/16 Blood Culture, Received Pending 12/31/16 Blood Culture, Received Pending Plan / VTE VTE Prophylaxis Ordered?: Yes Plan Plan Fever / Cough likely 2/2 pneumonia likely 2/2 HCAP - Presented with fever and cough - Physical unrevealing - WBC elevated, No lactic acid elevation - CXR 12/31: mild left basilar infiltrate - Will check UA and Urine culture - Will check blood cultures and sputum cultures - Will start Zosyn and Vanocmycin (re: HCAP coverage / MRSA coverage) Microcytic anemia - Hg appears to be at baseline - Will follow for now Developmental delay Diastolic CHF - will hold Lasix HTN - c/w amlodipine and losartan with holding parameters Hx of Diverticulosis Glaucoma - c/w home meds GERD - c/w sucralafate and ranitidine DVT prophylaxis - Will start SCDs RAIN WADE MD December 31, 2016 16:27
[2016-12-31] MEDS ORDERED: VANCOMYCIN HCL 750 MG, VIAL MATE ADAPTER 1 EACH in D5W 250 ML IV ONE (17:00)
[2016-12-31 17:15] VITALS: BP 135/60
[2016-12-31] MEDS ORDERED: VANCOMYCIN HCL 500 MG in D5W MINI-BAG PLUS 100 ML IV ONE (18:00)
[2016-12-31] MEDS: PIPERACILLIN/TAZOBACTAM SOD 3.375 GM in D5W MINI-BAG PLUS 50 ML IV SCH (18:13)
--- NOTE | 2016-12-31 18:18 | PHACANCOPD ---
PHARMACY VANCOMYCIN DOSING Pt Demographics Demographics Patient Age:89 , Weight:65.700 , Gender: female Adjusted Body Weight Date: 12/31/16, Adjusted Body Weight: [64.9] Kg Events Past 24 Hours Events Past 24 Hours: NO: Dialysis, Diuretic Therapy, Change in CrCl, Fever, Elevation in WBC, Pending Diagnostics, Pending Procedures, Other Vancomycin Vancomycin indication: HCAP COVERAGE Vancomycin Target Ranges: 15-20 mcg/ml Vancomycin Load Y/N: Yes Load Dose Date Time Vancomycin Load Dose: 1.25G Date: 12/31/16 Time: 17:00 Vancomycin Dose Date: 12/31/16. Current Vancomycin Dose: [1G IV Q24H] Intermittent Dosing?: No Labs Labs Item Value Date Time White Blood Count 14.1 K/mm3 H 12/31/16 1320 Creatinine 0.65 MG/DL 12/31/16 1320 Micro Microbiology 12/31/16 Blood Culture, Received Pending 12/31/16 Blood Culture, Received Pending Creatinine Clearance Date:12/31/16. Creatinine Clearance: [45.9ML/MIN]. Pending Labs BLOOD CULTURE Assessment and Plan Maintaining Current Dose?: Yes Reason for dose change: No Dose Change Pharmacist Note Pharmacist Note Date: 12/31/16. Pharmacist note: PT is an 89 y/o female being treated in combination with zosyn for hcap coverage. She has been treated with vancomycin therapy here at [facility] in the past and will be started again. Pt was gave a 1.25g loading dose at 17:00 maintenance will consist of 1g iv q 24h starting 01/01 @17: 00. We will continue to monitor and adjust dose as needed. RADHA [facility] December 31, 2016 18:18
[2016-12-31 22:00] VITALS: BP 118/67
[2016-12-31] MEDS: POLYVINYL ALCOHOL OPHTH SOLN 15 ML(LIQUITEARS) OU SCH (22:44)
[2016-12-31] MEDS: LATANOPROST 0.005% OPHTH SOLN 2.5 ML OU SCH (22:44)
[2016-12-31] MEDS: SUCRALFATE SUSP 1GM/10ML UD PO SCH (22:55)
[2016-12-31] MEDS: amLODIPine 5 MG TAB PO SCH (22:55)
[2016-12-31] MEDS: raNITIdine SYRUP 150 MG/10 ML UDC PO SCH (22:55)
[2016-12-31] MEDS: risperiDONE 0.5 MG TAB PO SCH (22:55)
[2016-12-31] MEDS: oxyBUTYnin 5 MG TAB PO SCH (22:59)
[2017-01-01 02:00] VITALS: BP 125/70
[2017-01-01] MEDS: PIPERACILLIN/TAZOBACTAM SOD 3.375 GM in D5W MINI-BAG PLUS 50 ML IV SCH (03:44)
[2017-01-01 06:00] VITALS: BP 130/64
[2017-01-01] MEDS ORDERED: CEFTAROLINE FOSAMIL 600 MG in D5W MINI-BAG PLUS 50 ML IV SCH (07:30)
[2017-01-01 07:50] LABS: BASO % 0.5 % (0.0-1.0); EOS # 0.2 K/mm3 (0.0-0.50); EOS % 1.8 % (0.0-3.0); LARGE UNSTAINED CELL # 0.2 K/mm3 (0.0-0.4); LARGE UNSTAINED CELL % 1.7 % (0.0-4.0); LYMPH # 1.5 K/mm3 (1.5-4.5); LYMPH % 13.9 % (24.0-44.0); MEAN CORPUSCULAR HEMOGLOBIN 19.3 pg (27.0-33.0); MEAN CORPUSCULAR HGB CONC 30.1 g/dl (32.0-36.5); MEAN CORPUSCULAR VOLUME 64.1 fl (80.0-96.0); MONO # 0.8 K/mm3 (0.0-0.8); MONO % 8.3 % (0.0-5.0); NEUTROPHILS # 6.9 K/mm3 (1.8-7.7); NEUTROPHILS % 73.8 % (36.0-66.0); PLATELET COUNT, AUTOMATED 271 k/mm3 (150-450); RED CELL DISTRIBUTION WIDTH 18.9 % (11.5-14.5); RETIC HEMOGLOBIN CONTENT CHr 23.1 PG (24-36); RETICULOCYTE ABSOLUTE ADVIA212 82 x10(9)/L (17-77); WHITE BLOOD COUNT 9.4 K/mm3 (4.0-10.0)
--- NOTE | 2017-01-01 08:23 | ECGEPIP ---
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
[2017-01-01 08:25] LABS: ALBUMIN 2.5 GM/DL (3.2-5.2); ALBUMIN/GLOBULIN RATIO 0.83 (1.00-1.93); ALKALINE PHOSPHATASE 83 U/L (45-117); ALT/SGPT 17 U/L (12-78); ANION GAP 7 MEQ/L (8-16); AST/SGOT 12 U/L (15-37); BILIRUBIN,TOTAL 0.5 MG/DL (0.2-1.0); BLOOD UREA NITROGEN 9 MG/DL (7-18); CALCIUM LEVEL 7.8 MG/DL (8.8-10.2); CARBON DIOXIDE LEVEL 27 MEQ/L (21-32); CHLORIDE LEVEL 108 MEQ/L (98-107); FERRITIN 18 NG/ML (8-252); GLOMERULAR FILTRATION RATE > 60.0 (>32); GLUCOSE, FASTING 119 MG/DL (83-110); MAGNESIUM LEVEL 2.2 MG/DL (1.8-2.4); PERCENT SATURATION 5.8 % (13.2-37.4); SODIUM LEVEL 142 MEQ/L (136-145); TOTAL IRON BINDING CAPACITY 342 UG/DL (250-450); TOTAL PROTEIN 5.5 GM/DL (6.4-8.2)
--- NOTE | 2017-01-01 08:27 | IPN ---
DATE: 01/01/2017 PRIMARY CARE PROVIDER: Dr. Nelly Dasilva in [facility] "Luz" was seen on . She is a [facility] ([facility]) client. Her primary care provider is Dr. Nelly Dasilva in [facility]. She was admitted with a left sided pneumonia. She has a history of chronic anemia that looks like it has been present since August. She has not had any workup for this, but she did have a CT of the abdomen and pelvis, which incidentally showed a rectal mass, for which she has been referred to Dr. Escalante. He plans esophagogastroduodenoscopy (EGD) and colonoscopy after medical clearance. She was admitted with pneumonia. Apparently there is some concern about swallowing, so she had a swallowing study ordered. She is nonverbal at baseline. Other past medical history includes nocturnal hypoxemia, for which she was discharged in August one supplemental oxygen, mild diastolic dysfunction seen on echocardiogram in October 2016. Ejection fraction 65 to 70%, trace to mild mitral regurgitation, trace aortic regurgitation, hypertension, gastroesophageal reflux disease (GERD), past history of dysphagia, age related osteoporosis, arthritis, urinary incontinence, tardive dyskinesia. PHYSICAL EXAMINATION: 98.1, 130/63, pulse 62, respiratory rate 15, 98% oxygen saturation on 2 liters. GENERAL APPEARANCE: She is nonverbal and lying in bed. HEENT: Unremarkable. LUNGS: Scattered rhonchi and wheezes. HEART: Regular rhythm with a 1/6 systolic ejection murmur. ABDOMEN: Soft, nontender. No masses. EXTREMITIES: No peripheral edema. LABORATORY DATA: Pending. Hemoglobin was 9 with a microcytic index. IMPRESSION: 1. Left sided pneumonia, admitting diagnosis of healthcare associated pneumonia. She is actually in a snf and not in a correction or other medical setting. She is currently on Zosyn and vancomycin. I think we can reduce her vancomycin exposure and still cover methicillin resistant Staphylococcus aureus (MRSA) by changing to ceftaroline, which will also cover community acquired pathogens. Technically, she is not healthcare associated pneumonia. 2. History of hypoxemia. She will probably need supplemental oxygen on discharge. 3. Iron deficiency anemia. Check iron studies because those actually have not been done yet to confirm iron deficiency. She will probably need some iron supplement. She has outpatient GI workup scheduled. 4. Dysphagia. Swallowing study has been ordered. Currently nothing by mouth. She is on IV fluids. 5. Hypertension. She is on losartan and Norvasc. 6. Urinary issues. She is to continue with Ditropan 5 mg twice a day. 7. Mental retardation. She is on Risperdal 0.5 mg twice a day, which we will continue.
[2017-01-01] MEDS: SUCRALFATE SUSP 1GM/10ML UD PO SCH ×3 (09:00→20:56)
[2017-01-01] MEDS: POLYVINYL ALCOHOL OPHTH SOLN 15 ML(LIQUITEARS) OU SCH ×4 (09:00→20:56)
[2017-01-01] MEDS: CEFTAROLINE FOSAMIL 400 MG in D5W MINI-BAG PLUS 50 ML IV SCH ×2 (09:08→20:54)
[2017-01-01] MEDS: raNITIdine SYRUP 150 MG/10 ML UDC PO SCH ×2 (09:30→20:54)
[2017-01-01] MEDS ORDERED: E-Z-PAQUE 96% w/w SUSP 176GM BTL As Ordered ONE (09:54)
[2017-01-01] MEDS ORDERED: VARIBAR PUDDING 40% w/v 230ML TUBE As Ordered ONE (09:54)
[2017-01-01] MEDS ORDERED: VARIBAR NECTAR 40% w/v 240ML SUSP BTL As Ordered ONE (09:54)
[2017-01-01 10:00] VITALS: BP 124/66
[2017-01-01] MEDS: LACTULOSE 20 GM/30 ML SYRUP UD PO SCH (12:51)
[2017-01-01] MEDS: LOSARTAN 50 MG TAB PO SCH (12:52)
[2017-01-01] MEDS: risperiDONE 0.5 MG TAB PO SCH ×2 (12:53→20:55)
[2017-01-01] MEDS: LORATADINE 10 MG TAB PO SCH (12:53)
[2017-01-01] MEDS: oxyBUTYnin 5 MG TAB PO SCH ×2 (12:53→20:56)
[2017-01-01 14:00] VITALS: BP 114/54
[2017-01-01] MEDS ORDERED: VANCOMYCIN HCL 1,000 MG, VIAL MATE ADAPTER 1 EACH in D5W 250 ML IV SCH (17:00)
--- NOTE | 2017-01-01 17:48 | REP ---
COOKIE SWALLOW: The procedure was performed under the direct supervision of Dr. Torrez. The procedure was performed with Latisha Dove from speech pathology present. 5 mL aliquots of nectar, pudding, solid and thin consistency barium was administered. There is no evidence of penetration or aspiration. There are degenerative changes of the spine, which causes mild impression on the posterior esophagus. A detailed report of this examination will be provided by speech pathology. 49 seconds of fluoroscopy time was utilized for this procedure. Reviewed by XOCHITL Blanton 01/02/2017 09:37 AEdited and Signed by Mateusz Torrez MD 01/02/2017 04:40 P
[2017-01-01] MEDS: amLODIPine 5 MG TAB PO SCH (20:55)
[2017-01-01] MEDS: LATANOPROST 0.005% OPHTH SOLN 2.5 ML OU SCH (20:57)
[2017-01-01] MEDS: ACETAMINOPHEN TAB 650MG DOSE (2X325MG) PO PRN (20:58)
[2017-01-01 22:00] VITALS: BP 146/65
[2017-01-02 02:00] VITALS: BP 129/59
[2017-01-02 06:00] VITALS: BP 139/64
[2017-01-02 07:06] LABS: BASO % 0.4 % (0.0-1.0); EOS # 0.2 K/mm3 (0.0-0.50); EOS % 2.4 % (0.0-3.0); LARGE UNSTAINED CELL # 0.2 K/mm3 (0.0-0.4); LARGE UNSTAINED CELL % 2.3 % (0.0-4.0); LYMPH # 1.9 K/mm3 (1.5-4.5); LYMPH % 24.6 % (24.0-44.0); MEAN CORPUSCULAR HEMOGLOBIN 19.4 pg (27.0-33.0); MEAN CORPUSCULAR HGB CONC 29.8 g/dl (32.0-36.5); MONO # 0.6 K/mm3 (0.0-0.8); MONO % 8.7 % (0.0-5.0); NEUTROPHILS # 4.3 K/mm3 (1.8-7.7); NEUTROPHILS % 61.6 % (36.0-66.0); PLATELET COUNT, AUTOMATED 295 k/mm3 (150-450); RED CELL DISTRIBUTION WIDTH 19.2 % (11.5-14.5)
[2017-01-02 07:09] LABS: ADD MORPHOLOGY? YES
[2017-01-02 07:27] LABS: MICROCYTOSIS 3+
[2017-01-02 07:28] LABS: ANISOCYTOSIS 1+; HYPOCHROMASIA 3+
[2017-01-02 07:36] LABS: ALBUMIN 2.6 GM/DL (3.2-5.2); ALBUMIN/GLOBULIN RATIO 0.79 (1.00-1.93); ALKALINE PHOSPHATASE 89 U/L (45-117); ALT/SGPT 19 U/L (12-78); ANION GAP 7 MEQ/L (8-16); AST/SGOT 11 U/L (15-37); BILIRUBIN,TOTAL 0.3 MG/DL (0.2-1.0); BLOOD UREA NITROGEN 12 MG/DL (7-18); CALCIUM LEVEL 7.9 MG/DL (8.8-10.2); CARBON DIOXIDE LEVEL 27 MEQ/L (21-32); CHLORIDE LEVEL 108 MEQ/L (98-107); CREATININE FOR GFR 0.52 MG/DL (0.55-1.02); GLOMERULAR FILTRATION RATE > 60.0 (>32); GLUCOSE, FASTING 112 MG/DL (83-110); MAGNESIUM LEVEL 2.2 MG/DL (1.8-2.4); POTASSIUM SERUM 4.1 MEQ/L (3.5-5.1); SODIUM LEVEL 142 MEQ/L (136-145); TOTAL PROTEIN 5.9 GM/DL (6.4-8.2)
--- NOTE | 2017-01-02 07:46 | IPN ---
DATE: 01/02/2017 Anne is stable. No real change from yesterday. Seems a little more bright and interactive today. She passed her swallowing evaluation without any abnormalities. Apparently she prefers a pureed diet at home so that is what has been ordered here. PHYSICAL EXAMINATION: 139/64, pulse 66, respiratory rate 18, 96% oxygen saturation, 98.7 degrees. Lungs: Clear. Heart: Regular rhythm. Abdomen: Soft, nontender. No peripheral edema. Neurological exam: Unchanged. IMPRESSION: 1. Left sided pneumonia, community acquired. She is on ceftaroline which should provide sufficiency coverage. 2. Hypoxemia. Will test her before discharge to see if she needs supplemental oxygen. 3. Iron deficiency anemia. This is confirmed through her lab work. Her reticulocyte hemoglobin content is low. I will start her on some supplemental iron. She has outpatient GI workup already scheduled. 4. Hypertension, good control on current regimen.
[2017-01-02] MEDS: oxyBUTYnin 5 MG TAB PO SCH ×2 (08:49→20:46)
[2017-01-02] MEDS: risperiDONE 0.5 MG TAB PO SCH ×2 (08:49→20:46)
[2017-01-02] MEDS: SUCRALFATE SUSP 1GM/10ML UD PO SCH ×3 (08:49→20:45)
[2017-01-02] MEDS: LACTULOSE 20 GM/30 ML SYRUP UD PO SCH (08:49)
[2017-01-02] MEDS: LORATADINE 10 MG TAB PO SCH (08:49)
[2017-01-02] MEDS: FERROUS SULFATE 325MG TAB PO SCH ×2 (08:49→20:46)
[2017-01-02] MEDS: LOSARTAN 50 MG TAB PO SCH (08:49)
[2017-01-02] MEDS: raNITIdine SYRUP 150 MG/10 ML UDC PO SCH ×2 (08:49→20:46)
[2017-01-02] MEDS: POLYVINYL ALCOHOL OPHTH SOLN 15 ML(LIQUITEARS) OU SCH ×4 (08:50→20:47)
[2017-01-02] MEDS: CEFTAROLINE FOSAMIL 400 MG in D5W MINI-BAG PLUS 50 ML IV SCH ×2 (08:50→20:46)
[2017-01-02] MEDS: LATANOPROST 0.005% OPHTH SOLN 2.5 ML OU SCH (20:47)
[2017-01-02] MEDS: amLODIPine 5 MG TAB PO SCH (20:47)
[2017-01-02 22:00] VITALS: BP 142/66
[2017-01-03 06:00] VITALS: BP 167/68
[2017-01-03 06:57] LABS: BASO % 0.4 % (0.0-1.0); EOS # 0.2 K/mm3 (0.0-0.50); EOS % 3.3 % (0.0-3.0); LARGE UNSTAINED CELL # 0.2 K/mm3 (0.0-0.4); LARGE UNSTAINED CELL % 2.6 % (0.0-4.0); LYMPH # 1.8 K/mm3 (1.5-4.5); LYMPH % 24.8 % (24.0-44.0); MEAN CORPUSCULAR HEMOGLOBIN 19.2 pg (27.0-33.0); MEAN CORPUSCULAR HGB CONC 29.7 g/dl (32.0-36.5); MEAN CORPUSCULAR VOLUME 64.6 fl (80.0-96.0); MONO # 0.5 K/mm3 (0.0-0.8); MONO % 8.2 % (0.0-5.0); NEUTROPHILS % 60.7 % (36.0-66.0); PLATELET COUNT, AUTOMATED 298 k/mm3 (150-450); RED CELL DISTRIBUTION WIDTH 19.3 % (11.5-14.5); WHITE BLOOD COUNT 6.5 K/mm3 (4.0-10.0)
[2017-01-03 07:04] LABS: ADD MORPHOLOGY? YES
[2017-01-03 07:27] LABS: ALBUMIN 2.6 GM/DL (3.2-5.2); ALBUMIN/GLOBULIN RATIO 0.84 (1.00-1.93); ALKALINE PHOSPHATASE 85 U/L (45-117); ALT/SGPT 19 U/L (12-78); ANION GAP 8 MEQ/L (8-16); AST/SGOT 15 U/L (15-37); BILIRUBIN,TOTAL 0.3 MG/DL (0.2-1.0); BLOOD UREA NITROGEN 8 MG/DL (7-18); CALCIUM LEVEL 7.9 MG/DL (8.8-10.2); CARBON DIOXIDE LEVEL 28 MEQ/L (21-32); CHLORIDE LEVEL 105 MEQ/L (98-107); CREATININE FOR GFR 0.52 MG/DL (0.55-1.02); GLOMERULAR FILTRATION RATE > 60.0 (>32); GLUCOSE, FASTING 109 MG/DL (83-110); MAGNESIUM LEVEL 2.2 MG/DL (1.8-2.4); POTASSIUM SERUM 4.2 MEQ/L (3.5-5.1); SODIUM LEVEL 141 MEQ/L (136-145); TOTAL PROTEIN 5.7 GM/DL (6.4-8.2)
[2017-01-03 07:42] LABS: ANISOCYTOSIS 2+; HYPOCHROMASIA 3+; MICROCYTOSIS 3+
--- NOTE | 2017-01-03 08:04 | IPN ---
DATE: 01/03/2017 Anne looks better today. Clinically much improved, smiling, interactive. Color is good. She is nonverbal with mental retardation. Caregivers amyotrophic lateral sclerosis think she looks better. PHYSICAL EXAMINATION: 142/66, pulse 62, respiratory rate 18, 99.8 degrees, 95% oxygen saturation on 1 liter. General Appearance: Nonverbal, smiling. Lungs: A few rhonchi, but much clearer. Heart: Regular rhythm. Abdomen: Soft, nontender. No peripheral edema. LABS: CBC unchanged. CMP unremarkable. IMPRESSION: 1. Left sided pneumonia, community acquired. She is on ceftaroline. My plan is to discharge her tomorrow. I discussed this with care rounds today. She will probably be discharged on Ceftin. Will wean her oxygen today. 2. Iron deficiency anemia. Outpatient workup is already planned. 3. Hypertension, good control on current regimen. 4. Hypoxemia. Will see whether she needs supplemental oxygen before discharge.
[2017-01-03 08:30] VITALS: BP 129/60
[2017-01-03] MEDS: LORATADINE 10 MG TAB PO SCH (09:00)
[2017-01-03] MEDS: POLYVINYL ALCOHOL OPHTH SOLN 15 ML(LIQUITEARS) OU SCH ×4 (09:00→21:46)
[2017-01-03] MEDS: FERROUS SULFATE 325MG TAB PO SCH ×2 (09:11→21:45)
[2017-01-03] MEDS: raNITIdine SYRUP 150 MG/10 ML UDC PO SCH ×2 (09:11→21:44)
[2017-01-03] MEDS: SUCRALFATE SUSP 1GM/10ML UD PO SCH ×3 (09:11→21:44)
[2017-01-03] MEDS: LACTULOSE 20 GM/30 ML SYRUP UD PO SCH (09:11)
[2017-01-03] MEDS: risperiDONE 0.5 MG TAB PO SCH ×2 (09:11→21:45)
[2017-01-03] MEDS: LOSARTAN 50 MG TAB PO SCH (09:12)
[2017-01-03] MEDS: oxyBUTYnin 5 MG TAB PO SCH ×2 (09:12→21:45)
[2017-01-03] MEDS: CEFTAROLINE FOSAMIL 400 MG in D5W MINI-BAG PLUS 50 ML IV SCH ×2 (09:55→21:45)
[2017-01-03 13:26] VITALS: BP 146/67
[2017-01-03 14:00] VITALS: BP 148/65
[2017-01-03] MEDS: amLODIPine 5 MG TAB PO SCH (21:45)
[2017-01-03] MEDS: LATANOPROST 0.005% OPHTH SOLN 2.5 ML OU SCH (21:46)
[2017-01-03] MEDS: ACETAMINOPHEN TAB 650MG DOSE (2X325MG) PO PRN (21:47)
[2017-01-03 22:00] VITALS: BP 115/77
[2017-01-04 06:00] VITALS: BP 121/57
[2017-01-04 07:17] LABS: BASO % 0.6 % (0.0-1.0); EOS # 0.2 K/mm3 (0.0-0.50); EOS % 3.9 % (0.0-3.0); LARGE UNSTAINED CELL # 0.1 K/mm3 (0.0-0.4); LARGE UNSTAINED CELL % 2.1 % (0.0-4.0); LYMPH # 1.6 K/mm3 (1.5-4.5); LYMPH % 28.1 % (24.0-44.0); MEAN CORPUSCULAR HEMOGLOBIN 19.8 pg (27.0-33.0); MEAN CORPUSCULAR HGB CONC 30.5 g/dl (32.0-36.5); MONO # 0.5 K/mm3 (0.0-0.8); MONO % 9.5 % (0.0-5.0); NEUTROPHILS % 55.8 % (36.0-66.0); PLATELET COUNT, AUTOMATED 313 k/mm3 (150-450); RED CELL DISTRIBUTION WIDTH 19.7 % (11.5-14.5); WHITE BLOOD COUNT 5.4 K/mm3 (4.0-10.0)
[2017-01-04 07:38] LABS: ALBUMIN 2.5 GM/DL (3.2-5.2); ALBUMIN/GLOBULIN RATIO 0.71 (1.00-1.93); ALKALINE PHOSPHATASE 82 U/L (45-117); ALT/SGPT 18 U/L (12-78); ANION GAP 6 MEQ/L (8-16); AST/SGOT 15 U/L (15-37); BILIRUBIN,TOTAL 0.1 MG/DL (0.2-1.0); BLOOD UREA NITROGEN 9 MG/DL (7-18); CALCIUM LEVEL 8.2 MG/DL (8.8-10.2); CARBON DIOXIDE LEVEL 29 MEQ/L (21-32); CHLORIDE LEVEL 107 MEQ/L (98-107); CREATININE FOR GFR 0.55 MG/DL (0.55-1.02); GLOMERULAR FILTRATION RATE > 60.0 (>32); GLUCOSE, FASTING 111 MG/DL (83-110); MAGNESIUM LEVEL 2.1 MG/DL (1.8-2.4); POTASSIUM SERUM 3.8 MEQ/L (3.5-5.1); SODIUM LEVEL 142 MEQ/L (136-145)
[2017-01-04] MEDS ORDERED: CEFT500T3 PO (08:52)
[2017-01-04 09:00] VITALS: BP 131/77
[2017-01-04] MEDS ORDERED: CEFUROXIME 500 MG TAB PO SCH (09:00)
[2017-01-04] MEDS: FERROUS SULFATE 325MG TAB PO SCH (09:51)
[2017-01-04] MEDS: LORATADINE 10 MG TAB PO SCH (09:52)
[2017-01-04] MEDS: oxyBUTYnin 5 MG TAB PO SCH (09:53)
[2017-01-04 09:54] VITALS: BP 131/77
[2017-01-04] MEDS: LOSARTAN 50 MG TAB PO SCH (09:54)
[2017-01-04] MEDS: raNITIdine SYRUP 150 MG/10 ML UDC PO SCH (09:56)
[2017-01-04] MEDS: SUCRALFATE SUSP 1GM/10ML UD PO SCH (09:56)
[2017-01-04] MEDS: LACTULOSE 20 GM/30 ML SYRUP UD PO SCH (09:58)
[2017-01-04] MEDS: POLYVINYL ALCOHOL OPHTH SOLN 15 ML(LIQUITEARS) OU SCH (10:00)
[2017-01-04] MEDS: risperiDONE 0.5 MG TAB PO SCH (10:03)
--- NOTE | 2017-01-04 10:10 | DSES ---
DATE OF ADMISSION: 12/31/2016 DATE OF DISCHARGE: 01/04/2017 PRINCIPAL DIAGNOSIS: Community acquired pneumonia. SECONDARY DIAGNOSES: 1. Iron deficiency anemia. 2. Hypertension. 3. Hypoxemia. 4. Mental retardation. 5. Various psychiatric disturbances. HISTORY: Anne Newman is a [facility] ([facility]) client admitted with community acquired pneumonia. Details on the history and physical from admission. HOSPITAL COURSE: The patient was admitted to a medical bed and started on ceftaroline. Had gradual but progressive response to this and improved on a daily basis. On the day of discharge, she is weaned off supplemental oxygen. She is resting comfortably in distress. Oxygen saturation was reportedly 86% on room air this morning but when I talked to staff I was told that it was rechecked and was in the 90s. She looks well on room air, smiling and interactive. Her examination is unchanged from documented yesterday. SIGNIFICANT LABORATORIES: White count 5.4, hemoglobin 8.7, platelets 313. Sodium 142, potassium 3.8, BUN 9, creatinine 0.5, glucose 111. Chest x-ray showed a left basilar infiltrate. Swallowing study showed no aspiration. DISPOSITION: She is discharged back to [facility] today. Activity as tolerated. Pureed diet, which was her preferred diet at home. Her medications are unchanged from admission: - amlodipine 5 mg daily - artificial tears four times a day - calcium with vitamin D twice a day - furosemide 40 mg daily - lactulose 15 mL daily - various eye drops - loratadine 10 mg daily - Cozaar 50 mg daily - metoclopramide 5 mg per 5 mL, 5 mg before food and nightly - multivitamin - oxybutynin 5 mg twice a day - ranitidine 150 mg syrup twice a day - Risperdal 0.5 mg twice a day - Carafate suspension 1 gram three times a day - vitamin E 400 units daily The only new medicine is Ceftin 500 mg twice a day for 5 days. She will need a followup chest x-ray, which can be ordered by her outpatient provider. At the time of this dictation, there are no pending laboratories.
== END 2017-01-04 12:59 | disposition home or self-care (01) | DRG 194 ==
LOC: EDBD 12:52 → M ED 14:10 → M ED INP 16:01 → M MS5PR 17:15
PROVIDERS: ADMIT Internal Medicine; ATTEND Hospitalist
DX: J18.9 Pneumonia, unspecified organism (principal); I50.32 Chronic diastolic (congestive) heart failure; G12.21 Amyotrophic lateral sclerosis; D50.9 Iron deficiency anemia, unspecified; I10 Essential (primary) hypertension; F79 Unspecified intellectual disabilities; R32 Unspecified urinary incontinence; R13.10 Dysphagia, unspecified; R09.02 Hypoxemia; H40.9 Unspecified glaucoma; K21.9 Gastro-esophageal reflux disease without esophagitis; Z79.899 Other long term (current) drug therapy; Z88.6 Allergy status to analgesic agent; Z88.8 Allergy status to other drugs, medicaments and biological substances

== ENCOUNTER → 2017-01-16 | Outpatient (CLI) | payer MEDICARE, MEDICAID ==
[~2017-01-16] MED LIST changes: +AMLO5TAB2 PO; +CEFT500T3 PO
--- NOTE | 2017-01-16 11:00 | REP ---
Clinical: Lumbar pneumonia. Technique: AP and lateral views. Comparison: 12/31/2016. Findings: Evaluation is limited by portable technique and decreased inspiratory effort. Cardiomegaly remains stable along with diffuse chronic interstitial changes. Lateral view suggests basilar atelectasis and left lower lobe infiltrate. Correlation is recommended. No obvious effusion. No pneumothorax. Skeletal structures intact. Impression: Chronic changes with suspected superimposed basilar atelectasis and left lower lobe infiltrate. Signed by Leonides Elliott MD 01/16/2017 10:51 A
== END ==
LOC: M RAD 10:03
PROVIDERS: ATTEND Family Medicine
DX: J18.1 Lobar pneumonia, unspecified organism (principal); J98.11 Atelectasis